=== PATIENT | female | born 1965 | race Caucasian/White ===

== ENCOUNTER 2019-07-29 08:59 | Emergency (ER) | payer BC, SELFPAY ==
[2019-07-29 09:05] VITALS: BP 112/60; PULSE 71; RESP 16; TEMP 36; O2SAT 97
--- NOTE | 2019-07-29 09:21 | ED.GENADUL_ITS ---
Discharge Plan Disposition Patient Disposition: HOME Condition: Stable Discharge Details Chief Complaint: Orthopedic Clinical Impression: Tendonitis of elbow, left Primary Care Provider: Goldie Miner ED Provider: Janet Acosta Home Meds and New Rx's Prescriptions: New diclofenac sodium 50 mg tablet,delayed release (DR/EC) 50 mg PO TID PRN (Reason: pain) Qty: 10 RF: 0 Continued loratadine [Claritin] 10 mg Tablet 10 mg PO DAILY RF: 0 epinephrine [EpiPen 2-Carlos] 0.3 mg/0.3 mL Auto-Injector RF: 0 Discharge Instructions Instructions: Tendinitis (ED) Additional Instructions: Rest, Ice, compression, elevation. Wear sling for comfort. Follow up with Ortho as needed. Ibuprofen or Tylenol as needed for pain and swelling. Referrals: Cuco Llamas MD [ [facility] STAFF PHYSICIAN] - (Call to schedule appointment- you were also put on a call list to follow up.) Goldie Miner MD [Primary Care Provider] - Medical Decision Making EXAM: XR ELBOW LT COMPLETE CLINICAL HISTORY: Left elbow pain TECHNIQUE: COMPARISON: No exams were available for comparison FINDINGS: Three views were obtained. There is no evidence of an elbow joint effusion or hemarthrosis. No bony abnormality is seen. IMPRESSION: 54 year old female Presents with chronic left elbow pain after a fall in March. She has pinpoint tenderness over her lateral epicondyles, no swelling no redness no warmth noted to her joint. She has full range of motion and intact distal pulses. X-rays obtained which are negative for any bony abnormality or joint effusion. Will give a sling and give a referral to orthopedic follow-up. Differential Diagnosis Differential Diagnosis: occult fracture, tendonitis, sprain HPI General Date/Time Provider Initiated Documentation: 07/29/19 09:06 . Limitations to Documentation: no limitations . Information obtained by: patient . History of Present Illness 54 year old F presents to the emergency department with the chief complaint of left elbow pain, described as moderate, with intensity rated at 5. Quality is described as aching, and is localized to the left and upper extremity. Patient reports no radiation. Patient started experiencing this month(s) (3) and it has been intermittent. Immobilization improves symptom(s),, Medication improves symptom(s), and Rest improves symptom(s), Movement worsens symptoms . Patient notes no other symptoms.. Patient did receive the following treatments prior to arrival, none HPI Narrative: . Patient presents with left elbow tenderness after a fall in March. . She has lateral olecranon tenderness to palpation. No swelling or deformity she has pinpoint tenderness to her lateral epicondoyle. Patient states she fell in March landing directly onto her elbow and has had pain since. It is relieved by ibuprofen she has not had any ibuprofen the last 2 days. Related Data Home Medications Medication Instructions Recorded Confirmed diclofenac sodium 50 mg PO TID PRN #10 tab 07/29/19 epinephrine [EpiPen 2-Carlos] 07/29/19 loratadine [Claritin] 10 mg PO DAILY 07/29/19 07/29/19 Previous Rx's Medication Instructions Recorded diclofenac sodium 50 mg PO TID PRN #10 tab 07/29/19 Allergies Allergy/AdvReac Type Severity Reaction Status Date / Time grapefruit juice Allergy Uncoded 07/29/19 09:11 seasonal Allergy Uncoded 07/29/19 09:11 General Stated Complaint: Orthopedic MICAH: 4 Review of Systems All systems reviewed & are unremarkable except as noted in HPI and below PFSH Social History Smoking/Tobacco Use Status: Former Tobacco Use Substance use type: does not use Exam Extrem General: normal to inspection, full ROM and normal capillary refill Right upper extremity: normal to inspection and full ROM Left upper extremity: normal capillary refill, no joint enlargement and elbow/fo rearm Details: tenderness (pinpoint over left lateral epicondoyle) Location: of the lateral epicondyle and distal pulses intact Course Vital Signs Vital signs: Vital Signs Temperature 36 C L 07/29/19 09:05 Pulse 71 07/29/19 09:05 Respiratory Rate 16 07/29/19 09:05 Blood Pressure 112/60 07/29/19 09:05 Pulse Oximetry 97 07/29/19 09:05 Temperature 36 C L 07/29/19 09:05 Temperature Source Skin 07/29/19 09:05 Pulse 71 07/29/19 09:05 Respiratory Rate 16 07/29/19 09:05 Respiratory Effort Non-Labored 07/29/19 09:05 Blood Pressure 112/60 07/29/19 09:05 Blood Pressure Position Supine 07/29/19 09:05 Pulse Oximetry 97 07/29/19 09:05 Oxygen Delivery Method Room Air 07/29/19 09:05 Oxygen Flow Rate 0 07/29/19 09:05 Pain Level 3 07/29/19 09:12
--- NOTE | 2019-07-29 09:31 | DI.RAD_ITS ---
EXAM: XR ELBOW LT COMPLETE CLINICAL HISTORY: Left elbow pain TECHNIQUE: COMPARISON: No exams were available for comparison FINDINGS: Three views were obtained. There is no evidence of an elbow joint effusion or hemarthrosis. No bony abnormality is seen. IMPRESSION:
== END 2019-07-29 10:13 | disposition home or self-care (01) ==
PROVIDERS: Emergency Provider Registered Nurse Emergency; PCP Internal Medicine
DX: M77.8 Other enthesopathies, not elsewhere classified (principal); W19.XXXA Unspecified fall, initial encounter
CPT/HCPCS: 99283; 73080; L3650

== ENCOUNTER 2019-11-21 01:50 | Outpatient (CLI) | payer BC, SELFPAY ==
[2019-11-21 10:44] LABS: Absolute Basophil Count 0.03 k/cumm (0.0-0.2); Absolute Eosinophil Count 0.06 k/cumm (0.0-0.7); Absolute Lymphocyte Count 1.42 k/cumm (1.2-3.4); Absolute Monocyte Count 0.31 k/cumm (0.11-0.7); Absolute Neutrophil Count 1.87 k/cumm (1.2-6.7); Basophils % 0.8; Eosinophils % 1.6; HCT 40.4 % (36.0-46.0); HGB 13.3 g/dL (12.0-15.5); Lymphocytes % 38.5; Mean Corp. HGB Concentration 32.9 g/dL (32.0-36.0); Mean Corpuscular Hemoglobin 28.1 pg (27.0-33.0); Mean Corpuscular Volume 85.4 fL (80-95); Mean Platelet Volume 9.1 fL (8.0-11.0); Monocytes % 8.4; Neutrophils % 50.7; Platelet Count 330 x1000/uL (130-400); RBC 4.73 m/cumm (4.00-5.20); RBC Distribution Width 12.7 % (11.7-14.6); White Blood Cell Count 3.69 k/cumm (4.4-10.8)
[2019-11-21 11:47] LABS: Iron 91 ug/dL (50-170); Total Iron Binding Capacity 306 ug/dL (250-450); Transferrin Sat 30 % (15-50)
[2019-11-21 12:10] LABS: Vitamin D 25 Total 62.2 ng/ml (30-100)
[2019-11-21 12:15] LABS: ALT 24 U/L (14-59); AST 15 U/L (15-37); Albumin 4.2 g/dL (3.4-5.0); Alkaline Phosphatase 68 U/L (46-116); Anion Gap 8.6 mmol/L (3-11); BUN 22 mg/dL (7-18); Bilirubin, Total 0.3 mg/dL (0.2-1.0); CO2 28.4 mmol/L (21.0-32.0); CREATININE 0.74 mg/dL (0.55-1.02); Calcium 9.3 mg/dL (8.5-10.1); Calculated LDL 111 mg/dL (<100); Chloride 103 mmol/L (98-107); Cholesterol 195 mg/dL (<200); Ferritin 109 ng/mL (8-252); Glucose 80 mg/dL (74-106); HDL Cholesterol 69 mg/dL (40-60); Potassium 4.2 mmol/L (3.5-5.1); Sodium 140 mmol/L (136-145); TSH 1.03 uIU/mL (0.36-3.74); Total Protein 7.1 g/dL (6.4-8.2); Triglyceride 76 mg/dL (<150); Vitamin B12 509 pg/mL (193-986)
[2019-11-21 12:16] LABS: Folate > 20.0 ng/mL (8.6-20.0)
[2019-11-21 12:33] LABS: FREE T4 0.87 ng/dL (0.76-1.46)
[2019-11-21 19:30] LABS: T3,Free 4.3 pg/mL (2.8-5.3)
[2019-11-22 09:13] LABS: Thyroglobulin Antibody <15 U/mL (<=60); Thyroperoxidase Antibody <28 U/mL (<=60)
[2019-11-22 13:50] LABS: Homocysteine 9.3 umol/L (5.0-13.9)
[2019-11-23 10:46] LABS: Lipoprotein (a) 30 mg/dL (<=30)
[2019-11-26 18:32] LABS: Histamine Plasma 0.45 ng/mL (0-1.0)
== END 2019-11-21 02:10 ==
PROVIDERS: PCP Internal Medicine; Visit Provider Naturopath
DX: F41.9 Anxiety disorder, unspecified (principal); E61.1 Iron deficiency; R53.83 Other fatigue; E78.5 Hyperlipidemia, unspecified; L29.9 Pruritus, unspecified
CPT/HCPCS: 36415; 80053; 80061; 82306; 83090; 83695; 82607; 82728; 82746; 83036; 83088; 83540; 83550; 84439; 84443; 84481; 85025; 86376; 86800

== ENCOUNTER 2020-02-28 08:39 | Outpatient (CLI) | payer BC, SELFPAY ==
[2020-02-29 14:39] LABS: COVID-19 RT-PCR Result NEGATIVE (Negative)
== END 2020-02-28 08:59 ==
PROVIDERS: PCP Internal Medicine; Visit Provider Orthopaedic Surgery
DX: Z11.59 Encounter for screening for other viral diseases (principal); Z01.818 Encounter for other preprocedural examination
CPT/HCPCS: U0003

== ENCOUNTER 2020-03-02 11:01 | Day surgery (SDC) | payer BC, SELFPAY ==
[2020-03-02 11:11] VITALS: BP 113/67; PULSE 65; RESP 16; TEMP 36.4; O2SAT 97
[2020-03-02] MEDS: Lactated Ringers 1,000 ML 80 ML IV ×2 (11:34→14:28)
[2020-03-02] MEDS: ceFAZolin 1 GM/50 ML BAG IVPB (13:29)
--- NOTE | 2020-03-02 14:20 | PDOC.DSDIS_ITS ---
Discharge Plan Disposition Patient Disposition: HOME Condition: Good Discharge Details Attending Provider: Cuco Llamas Primary Care Provider: Goldie Miner Home Meds and New Rx's Prescriptions: New ibuprofen 600 mg tablet 600 mg PO TID Qty: 30 RF: 1 hydrocodone-acetaminophen 5-325 mg tablet 1 tab PO Q6H PRN (Reason: pain) Qty: 14 RF: 0 No Action atorvastatin 20 mg tablet 20 mg PO DAILY RF: 0 loratadine [Claritin] 10 mg Tablet 10 mg PO DAILY RF: 0 epinephrine [EpiPen 2-Carlos] 0.3 mg/0.3 mL Auto-Injector 0.3 ml IM PRN PRNRF: 0 cyanocobalamin (vitamin B-12) 1,000 mcg Tablet 1,000 mcg PO DAILY RF: 0 vitamin B complex [B-Complex] Tablet 1 tab PO DAILY RF: 0 cholecalciferol (vitamin D3) [Vitamin D3] 125 mcg (5,000 unit) Tablet 125 mcg PO DAILY RF: 0 Probiotic 5 billion cell Capsule, Sprinkle 1 cap PO DAILY RF: 0 Discharge Instructions Additional Instructions: Sling for comfort. May take L arm out of sling and move L elbow as much as your discomfort allows. 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 Apply ice bag to L elbow 4 times/day for 1 hour each time. May remove outer dressing and didier bandage to shower in 72 hours. Leave inner bandage in place to shower. You can get the inner bandage wet. Don't remove inner bandage, it will fall off by itself or I will remove it at your follow up appointment. Follow up with in 2 weeks. Take ibuprofen to decrease swelling and inflammation. Take hydrocodone for breakthru pain, if needed. Referrals: Cuco Llamas MD [ [facility] STAFF PHYSICIAN] - (f/u in 2 weeks) Equipment/Supplies: Sling Activity:: Activity as Tolerated Remove Dressings/Wound Care:: Do Not Remove Shower/Bathe:: 72 hours Diet:: As Tolerated Discharge Orders Discharge Orders: Discharge Order (Routine); Ordered 03/02/20 Ordered By: Cuco Llamas DS: Diagnosis Discharge Diagnosis (1) Left lateral epicondylitis: Status: Acute
[2020-03-02 14:47] VITALS: BP 111/65; PULSE 87; RESP 19; TEMP 36.7; O2SAT 95
[2020-03-02 14:52] VITALS: BP 127/75; PULSE 85; RESP 20; TEMP 36.7; O2SAT 94
[2020-03-02 14:57] VITALS: BP 136/63; PULSE 76; RESP 14; TEMP 36.7; O2SAT 95
[2020-03-02 15:10] VITALS: BP 113/62; PULSE 84; RESP 15; TEMP 36.6; O2SAT 95
[2020-03-02] MEDS: oxyCODONE-CR 10 MG TABCR PO (15:42)
[2020-03-02 16:00] VITALS: BP 114/70; PULSE 77; RESP 16; TEMP 36.6; O2SAT 96
--- NOTE | 2020-03-03 16:10 | W.PM.OP ---
Date of service: 03/02/20 Time of Service: 14:10 Operative Note Operative Note DATE OF PROCEDURE: 03/02/20 PRE-OP DIAGNOSIS: Left lateral epicondylitis POST-OP DIAGNOSIS: same PROCEDURE: Fasciotomy elbow left for lateral epicondylitis, partial ostectomy lateral epicondyle. 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 She has exhausted conservative treatment without relief of symptoms. Surgery was therefore recommended to relieve her pain. Risk and complication of procedure explained patient detail preop Procedure Description: Patient was taken the operating room on 03/02/2020 where she was placed supine on the operating table and a general anesthetic was administered. Once good anesthesia was obtained proximal tourniquet was applied to the left upper arm. The left upper extremity was prepped from fingers to turn again and draped free in usual sterile fashion. Approximately 5 cm oblique incision was made centered over the lateral condyle. Incision was made under tourniquet control. Incision was carried down to the fascia. Fascia was incised circumferentially around the lateral condyle and the common extensor origin was sharply reflected from the lateral condyle. Care was taken to preserve the lateral collateral ligament. Degenerated tendon on the undersurface of the extensor carpi radialis brevis was excised. Partial ostectomy was performed the lateral condyle using Sandra osteotomes and a mallet. A wafer of bone approximately 1 to 2 mm was excised. This point the wound was irrigated with the saline solution. The wound margins were infiltrated with 25% Marcaine with epinephrine solution. The common extensor origin was reattached to the lateral epicondyle by suturing the tendon to surrounding fascia. Anterior and superior fasciotomy around the extensor carpi radialis brevis and longus was made during exposure. Th the fasciotomies were approximated interrupted [id number] sutures of #1 backslash material. Skin and subcu were approximated with running subcuticular suture of 4-0 Monocryl supplemented with Steri-Strips. Sterile dressings were applied followed by light compressive dressing to the elbow. Sling was applied to the left upper extremity. Tourniquet was released and there was no breakthrough bleeding to the dressings. Patient's anesthesia was reversed complications she was discharged to recovery room in good condition. Patient was later discharged home from day surgery unit when fully recovered from her general anesthesia. She is given instructions to take her left arm out of the sling and move the elbow as often and is much as discomfort allows. She is to apply ice pack to the lateral elbow incision 4 times a day for an hour each time. She may discontinue the sling as soon as discomfort allows. She may remove the dressing shower and get her incision wet after 72 hours. She is given a prescription for ibuprofen 60 mg p.o. 3 times daily for swelling and inflammation. She is given a prescription for breakthrough pain of hydrocodone with APAP 11/09/2024 1 tab every 6 hours if needed for breakthrough pain. 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 She will follow-up with Dr. Llamas in 2 weeks.
== END 2020-03-02 16:35 | disposition home or self-care (01) ==
PROVIDERS: PCP Internal Medicine; Visit Provider Orthopaedic Surgery
PROC: (CPT 24357; principal; 2020-03-02 13:15)
DX: M77.12 Lateral epicondylitis, left elbow (principal)
CPT/HCPCS: 24359; J0131; J0690; J1100; J1885; J2001; J2405; J3010; L3650

== ENCOUNTER 2020-04-24 14:07 | Outpatient (REF) | payer BC, SELFPAY ==
[2020-04-24 21:33] LABS: ALT 16 U/L (14-59); AST 12 U/L (15-37); Calculated LDL 182 mg/dL (<100); Cholesterol 259 mg/dL (<200); Ferritin 84 ng/mL (8-252); HDL Cholesterol 49 mg/dL (40-60); Triglyceride 142 mg/dL (<150)
[2020-04-27 07:28] LABS: Vitamin D 25 Total 65.3 ng/ml (30-100)
== END 2020-04-24 14:27 ==
LOC: NCHCN 14:07
PROVIDERS: PCP Nurse Practitioner Family; Visit Provider Nurse Practitioner Family
DX: E78.5 Hyperlipidemia, unspecified (principal); E61.1 Iron deficiency; E55.9 Vitamin D deficiency, unspecified
CPT/HCPCS: 80061; 82306; 82728; 84450; 84460

== ENCOUNTER 2020-05-01 09:20 | Emergency (ER) | payer BC, SELFPAY ==
[2020-05-01 09:25] VITALS: BP 100/70; PULSE 64; RESP 17; TEMP 36.2; O2SAT 100
--- NOTE | 2020-05-01 09:59 | ED.GENADUL_ITS ---
Discharge Plan Disposition Patient Disposition: HOME Condition: Stable Discharge Details Clinical Impression: Acute otitis media of left ear with perforation Primary Care Provider: Heather Mcduffie ED Provider: Janet Acosta Home Meds and New Rx's Prescriptions: New ofloxacin 0.3 % drops 10 drp otic (ear) BID 7 Days Qty: 10 RF: 0 amoxicillin-pot clavulanate [Augmentin] 875-125 mg tablet 1 tab PO BID 7 Days Qty: 14 RF: 0 Continued loratadine [Claritin] 10 mg Tablet 10 mg PO DAILY RF: 0 epinephrine [EpiPen 2-Carlos] 0.3 mg/0.3 mL Auto-Injector 0.3 ml IM PRN PRNRF: 0 cyanocobalamin (vitamin B-12) 1,000 mcg Tablet 1,000 mcg PO DAILY RF: 0 vitamin B complex [B-Complex] Tablet 1 tab PO DAILY RF: 0 cholecalciferol (vitamin D3) [Vitamin D3] 125 mcg (5,000 unit) Tablet 125 mcg PO DAILY RF: 0 Probiotic 5 billion cell Capsule, Sprinkle 1 cap PO DAILY RF: 0 Discharge Instructions Instructions: Ruptured Eardrum (ED), Ear Infection (ED) Additional Instructions: Take antibiotics as directed. Eat yogurt or take a probiotic while taking antibiotics. No swimming, do not put anything into your ear other than the antibiotic drops. Follow up with primary care provider in 3-5 days. Return to ED sooner if any worsening or concerns. Increase oral fluids. Please take Tylenol or Ibuprofen with food every 4-6 hours as needed for pain and swelling. Call ear nose and throat doctors as listed below for follow-up related to the perforation. Referrals: Richard Poole DO [OSTEOPATHIC DOCTOR] - Soren Bell MD [ [facility] STAFF PHYSICIAN] - Heather Mcduffie [Primary Care Provider] - Discharge Data Discharge Date/Time-TO BE ENTERED AT DEPARTURE: 05/01/20 11:17 Medical Decision Making 54-year-old female presents to the ED with chief complaint of runny nose, ear drainage, head fullness and dry cough which began this morning. She has had the symptoms for the last week. She recently traveled to [place] 3 weeks ago. She denies any barotrauma or head injuries. Upon examination she does have a left tympanic membrane perforation noted with surrounding ecchymosis. Right tympanic membrane is nonerythemic but is bulging does appear to have an effusion behind it. She has no mastoid erythema or tenderness. No sinus tenderness with palpation. Lungs are clear to auscultation bilaterally. She is alert and oriented x3. On exam patient has a perforated left tympanic membrane with surrounding ecchymosis and dried blood noted in the external ear canal. Right tympanic membrane is bulging and nonerythemic but appears to have fluid behind the ear. She has no mastoid tenderness erythema or swelling. Lungs are clear to auscultation bilaterally. Posterior pharynx is nonerythemic no exudate. 1025: Call received from [facility] regarding patient. They were not aware of her recent travel and they state that she was in their office approximately 1 week ago and they are requesting Covid testing for her. Jackeline testing ordered at this time and patient aware. Augmentin prescribed and ofloxacin drops x7 days for perforated eardrum related to otitis media. Did give patient phone numbers for ear nose and throat doctors for follow-up. Patient was hemodynamically stable throughout stay. This text was generated using [employer] dictation system, please disregard any oddities of phrase or misspellings. At this time Covid swab is pending. Instructed on quarantine. HPI General Mode of arrival: ambulatory . Date/Time Provider Initiated Documentation: 05/01/20 09:20 . Limitations to Documentation: no limitations . Information obtained by: patient . HPI Narrative: 54-year-old female presents to the ED with chief complaint of runny nose, ear drainage, head fullness and dry cough which began this morning. She has had the symptoms for the last week. She recently traveled to [place] 3 weeks ago. She denies any barotrauma or head injuries. Upon examination she does have a left tympanic membrane perforation noted with surrounding ecchymosis. Right tympanic membrane is nonerythemic but is bulging does appear to have an effusion behind it. She has no mastoid erythema or tenderness. No sinus tenderness with palpation. Lungs are clear to auscultation bilaterally. She is alert and oriented x3. Related Data Home Medications Medication Instructions Recorded Confirmed epinephrine [EpiPen 2-Carlos] 0.3 ml IM PRN PRN 07/29/19 04/15/20 loratadine [Claritin] 10 mg PO DAILY 07/29/19 04/15/20 Probiotic 1 cap PO DAILY 02/26/20 04/15/20 cholecalciferol (vitamin D3) 125 mcg PO DAILY 02/26/20 04/15/20 [Vitamin D3] cyanocobalamin (vitamin B-12) 1,000 mcg PO DAILY 02/26/20 04/15/20 vitamin B complex [B-Complex] 1 tab PO DAILY 02/26/20 04/15/20 amoxicillin-pot clavulanate 1 tab PO BID 7 Days #14 tab 05/01/20 [Augmentin] ofloxacin 10 drp OTIC (EAR) BID 7 Days #10 ml 05/01/20 Previous Rx's Medication Instructions Recorded amoxicillin-pot clavulanate 1 tab PO BID 7 Days #14 tab 05/01/20 [Augmentin] ofloxacin 10 drp OTIC (EAR) BID 7 Days #10 ml 05/01/20 Allergies Allergy/AdvReac Type Severity Reaction Status Date / Time gluten Allergy Unknown Verified 04/15/20 09:53 lactose Allergy Unknown Verified 04/15/20 09:53 grapefruit juice Allergy Severe Anaphylaxsi Uncoded 04/15/20 09:53 s seasonal Allergy Uncoded 04/15/20 09:53 General Stated Complaint: RespSymp MICAH: 4 Review of Systems Narrative: Constitutional: Negative for weight loss, alert and oriented, well groomed, normal body habitus, appears comfortable. HEENT: Denies trauma, headaches, blurry vision, nasal discharge, sore throat, trouble swallowing. Positive bilateral ear pain and ear drainage. Chest: Denies chest pain, palpitations, irregular rhythm, hypertension. Respiratory: Denies Shortness of breath, positive dry cough, denies hemoptysis. GI: Denies abdominal pain, nausea, vomiting, diarrhea, constipation. : Denies dysuria, hematuria, flank pain, rectal bleeding. Neuro: Denies dizziness, blurry vision, weakness, syncope, headache or facial numbness. Hematologic: Denies easy bruising, intolerance to heat or cold, hair loss. [facility] Medical History Difficult airway for intubation Significant masseter spasm following induction of anesthesia, small mouth opening Gluten intolerance Hyperlipidemia Lactose intolerance Surgical History History of tonsillectomy and adenoidectomy Hx of cholecystectomy Hx of shoulder surgery 2017 Arthroscopy S/P left knee arthroscopy 2006 & 2011 Social History Smoking/Tobacco Use Status: Former Tobacco Use Quit Date: 07/10/17 Alcohol Intake: current Alcohol Intake frequency: holidays/special occasions only Drug use: Never Substance use type: does not use Current gender identity: female Do you feel safe at home: Yes Do you feel safe in your relationship?: Yes Exam Narrative Exam Narrative: Constitutional: Alert and oriented x3. Appears stated age. Normal body habitus. Head: Normocephalic, no trauma. Eyes: Pupils PERRLA, Red reflex noted, EOM's intact. Eyelids symmetrical without lesions, discharge, or swelling. ENT: Left tympanic membrane noted is a central perforation with surrounding ecchymosis and dried blood noted to the ear canal. Right tympanic membrane is nonerythemic with bulging and fluid behind tympanic membrane. Ear canal is clear., External ear normal to inspection, no mastoid TTP, swelling, or erythema, Nasal turbinates WNL, no nasal discharge. Normal dentition, Posterior pharynx WNL, no exudate. Chest: RRR, Normal S1, S2, distal pulses intact. Resp: Lungs clear to auscultation bilaterally, no wheezes, rales, or rhonchi. Musculoskeletal: Normal gait, 5/5 strength to all four extremities. Skin: No suspicious rashes or lesions. Capillary refill less than 2 sec. Neurologic: Cranial nerves II-XII intact. Alert and oriented x 3. DTR's intact. Hematologic/Lymphatic: No ecchymosis, no lymphadenopathy. Course Vital Signs Vital signs: Vital Signs Temperature 36.2 C L 05/01/20 09:25 Pulse 64 05/01/20 09:25 Respiratory Rate 17 05/01/20 09:25 Blood Pressure 100/70 05/01/20 09:25 Pulse Oximetry 100 05/01/20 09:25 Temperature 36.2 C L 05/01/20 09:25 Temperature Source Tympanic 05/01/20 09:25 Pulse 64 05/01/20 09:25 Respiratory Rate 17 05/01/20 09:25 Respiratory Effort 05/01/20 09:33 Blood Pressure 100/70 05/01/20 09:25 Blood Pressure Position Supine 05/01/20 09:25 Pulse Oximetry 100 05/01/20 09:25 Oxygen Delivery Method Room Air 05/01/20 09:25 Oxygen Flow Rate 0 05/01/20 09:25
[2020-05-01] MEDS: Amoxicillin 875/Clav. 125 TAB PO (10:44)
[2020-05-03 23:34] LABS: Patient Race White; SARS-CoV-2 RNA Undetected (Undetected); SARS-CoV-2 Specimen Source Nasopharynx
== END 2020-05-01 11:17 | disposition home or self-care (01) ==
PROVIDERS: Emergency Provider Registered Nurse Emergency; PCP Nurse Practitioner Family
DX: H66.012 Acute suppurative otitis media with spontaneous rupture of ear drum, left ear (principal); R05 Cough; R09.89 Other specified symptoms and signs involving the circulatory and respiratory systems; Z03.818 Encounter for observation for suspected exposure to other biological agents ruled out
CPT/HCPCS: 99283; U0003

== ENCOUNTER 2020-05-14 00:34 | Outpatient (CLI) | payer BC, SELFPAY ==
--- NOTE | 2020-05-14 | DI.US_ITS ---
EXAM: US PELVIS TRANSVAGINAL CLINICAL HISTORY: H/O OVARIAN CYST, F/U, Z87.42. TECHNIQUE: Transabdominal and transvaginal pelvic ultrasound was performed using standard protocol. COMPARISON: No exams were available for comparison FINDINGS: KIDNEYS: Kidneys are symmetric in size. No evidence of renal calculi. No evidence of hydronephrosis. No renal mass or cyst identified. UTERUS: Position: Anteverted. Size: 6.5 long by 3.5 AP by 4.6 transverse cm Endometrium: 0.2 cm. Normal for patient's menstrual status. The intrauterine device is located in goo d position within the endometrium. Myometrium: Unremarkable. Cervix: Unremarkable. OVARIES: Right: 2.9 x 1.6 x 1.5 cm Cyst or mass: None. Left: 3.2 x 1.6 x 1.7 cm Cyst or mass: None. DOPPLER: Color: Symmetric and uniform flow to both ovaries. No hyperemia. CUL-DE-SAC: Free fluid: None. Other: None. IMPRESSION: 1. Normal sonographic appearance of the kidneys. 2. Normal-appearing uterus with endometrial stripe within normal limits. 3. IUD in good position. 4. Unremarkable bilateral ovaries. DATA REPOSITORY:
== END 2020-05-14 00:54 ==
PROVIDERS: PCP Nurse Practitioner Family; Visit Provider Nurse Practitioner Family
DX: Z87.42 Personal history of other diseases of the female genital tract (principal); Z97.5 Presence of (intrauterine) contraceptive device
CPT/HCPCS: 76830; 76856

== ENCOUNTER 2020-06-18 17:38 | Outpatient (REF) | payer BC, SELFPAY ==
--- NOTE | 2020-06-18 16:30 | PAPFT_PTH ---
PATIENT: Virginia Marie [facility] U[facility][id number] AGE/SX: 55/F ROOM: RE06/18/[address]: Heather Mcduffie : 1965 BED: DIS: 06/18/2020 SPEC #: [id number] RECD: 06/19/20 12:48 STATUS: CHAR REQ #: [id number] [place]: 06/18/20 16:[address]: Heather Mcduffie DEPT: [facility] Cytology RECD BY: Rose Presley Tissues: 1 - CX/ENDOCX FOR PAP SMEARS Procedures: PAP THIN PREP/UVM Screening HPV DNA PROBE Comments: [id number] (CHLAMYDIA/GC)
[2020-06-22 14:15] LABS: Chlamydia Result Negative (Negative); GC Result Negative (Negative)
== END 2020-06-18 17:58 ==
LOC: NCHCN 17:38
PROVIDERS: PCP Nurse Practitioner Family; Visit Provider Nurse Practitioner Family
DX: Z00.00 Encounter for general adult medical examination without abnormal findings (principal); Z11.3 Encounter for screening for infections with a predominantly sexual mode of transmission; Z12.4 Encounter for screening for malignant neoplasm of cervix; Z01.419 Encounter for gynecological examination (general) (routine) without abnormal findings; Z11.51 Encounter for screening for human papillomavirus (HPV)
CPT/HCPCS: 87491; 87591; 88142; 87624

== ENCOUNTER 2020-07-26 11:16 | Emergency (ER) | payer BC, SELFPAY ==
[2020-07-26 11:30] VITALS: BP 124/68; PULSE 76; RESP 18; TEMP 36.7; O2SAT 97
--- NOTE | 2020-07-26 12:07 | ED.GENADUL_ITS ---
Discharge Plan Disposition Patient Disposition: HOME Condition: Stable Discharge Details Clinical Impression: Headache Primary Care Provider: Heather Mcduffie ED Provider: Mark Scott Home Meds and New Rx's Prescriptions: Continued loratadine [Claritin] 10 mg Tablet 10 mg PO DAILY RF: 0 epinephrine [EpiPen 2-Carlos] 0.3 mg/0.3 mL Auto-Injector 0.3 ml IM PRN PRNRF: 0 cyanocobalamin (vitamin B-12) 1,000 mcg Tablet 1,000 mcg PO DAILY RF: 0 vitamin B complex [B-Complex] Tablet 1 tab PO DAILY RF: 0 cholecalciferol (vitamin D3) [Vitamin D3] 125 mcg (5,000 unit) Tablet 125 mcg PO DAILY RF: 0 Probiotic 5 billion cell Capsule, Sprinkle 1 cap PO DAILY RF: 0 Discharge Instructions Instructions: General Headache (ED) Additional Instructions: Please take ibuprofen over the counter. Take 600mg by mouth every 6 hours as needed for pain. Your next dose should be after 10 PM tonight Please take acetaminophen (tylenol) - 650mg every 6 hours by mouth as needed for pain. Please contact your primary care physician to arrange follow-up. Call tomorrow. If headache were to return you will need additional diagnostic testing. Return to the ER immediately for any worsening or new concerning symptoms. Discharge Data Discharge Date/Time-TO BE ENTERED AT DEPARTURE: 07/26/20 13:31 Medical Decision Making 12:13 -- 55-year-old female here with intermittent headache over the past 2 weeks that started after receiving COVID-19 vaccine. Patient has mild to moderate headache at this time. She is neurologically intact. No signs of meningitis or encephalitis. Headache presentation is not consistent with subarachnoid hemorrhage. Plan to treat with Compazine, Benadryl and Toradol as well as IV fluid and I will reassess. --Labs reviewed and nondiagnostic. 13:25 --patient reassessed and headache completely resolved. Disposition decision was made weighing the risks and benefits of hospitalization versus outpatient treatment, the risk for further decompensation, and the patient's wishes. The patient was stable and requested discharge. Prior to discharge, my usual and customary return precautions were reviewed with her- this included follow-up instructions and reason to return to the emergency department if condition worsens, does not improve as expected, or other new concerns arise. HPI General Mode of arrival: ambulatory . Date/Time Provider Initiated Documentation: 07/26/20 11:25 . Limitations to Documentation: no limitations . Information obtained by: patient . HPI Narrative: 55-year-old female presents with chief complaint of headache. Patient notes headache started on 07/13/2020 a few hours after receiving COVID-19 vaccine. Patient notes she experienced moderate headache initially. Headache has been intermittent since onset and severe at times. Headache is currently mild to moderate rated 4/10. Headache is frontal temporal bilaterally. Described as feels like a migraine. she has no associated visual changes. No numbness or weakness. No neck pain or stiffness. No fever. Patient states the day after vaccination she did have some general achiness but that has resolved. Patient notes she has had headaches in the past related to ingestion of gluten. She stopped eating gluten and headaches have resolved. Related Data Home Medications Medication Instructions Recorded Confirmed epinephrine [EpiPen 2-Carlos] 0.3 ml IM PRN PRN 07/29/19 07/26/20 loratadine [Claritin] 10 mg PO DAILY 07/29/19 07/26/20 Probiotic 1 cap PO DAILY 02/26/20 07/26/20 cholecalciferol (vitamin D3) 125 mcg PO DAILY 02/26/20 07/26/20 [Vitamin D3] cyanocobalamin (vitamin B-12) 1,000 mcg PO DAILY 02/26/20 07/26/20 vitamin B complex [B-Complex] 1 tab PO DAILY 02/26/20 07/26/20 Allergies Allergy/AdvReac Type Severity Reaction Status Date / Time gluten Allergy Unknown Verified 08/10/20 09:51 lactose Allergy Unknown Verified 08/10/20 09:51 grapefruit juice Allergy Severe Anaphylaxsi Uncoded 08/10/20 09:51 s seasonal Allergy Uncoded 08/10/20 09:51 General Stated Complaint: Headache MICAH: 2 Review of Systems All systems reviewed & are unremarkable except as noted in HPI and below Constitutional Constitutional: Denies body ache(s), Denies fever(s), Reports headache(s) and Denies weakness Eyes Eyes: Denies blurry vision and Denies loss of vision ENT Ears, Nose, Mouth, and Throat: Reports headache(s) Cardiovascular Cardiovascular: Denies chest pain and Denies dyspnea Respiratory Respiratory: Denies dyspnea Musculoskeletal Musculoskeletal: Denies numbness Neurologic Neurologic: Reports as per HPI, Reports headache(s), Denies loss of vision, Denies numbness and Denies weakness PFSH Medical History Difficult airway for intubation Significant masseter spasm following induction of anesthesia, small mouth opening Gluten intolerance Hyperlipidemia Lactose intolerance Surgical History History of tonsillectomy and adenoidectomy Hx of cholecystectomy Hx of shoulder surgery 2017 Arthroscopy S/P left knee arthroscopy 2006 & 2011 Family History Father Hyperlipidemia Hypertension Mother Hypertension Thyroid disorder Lupus Rheumatoid arthritis Scleroderma Pernicious anemia Sjogren's disease Social History Smoking/Tobacco Use Status: Former Tobacco Use Quit Date: 07/10/17 Smoking risk assessment performed?: Yes Alcohol Intake: current Alcohol Intake frequency: holidays/special occasions o nly Drug use: Never Substance use type: does not use Current gender identity: female Do you feel safe at home: Yes Do you feel safe in your relationship?: Yes Exam Const General: cooperative and no acute distress HENMT Head: normocephalic and atraumatic Mouth: moist mucous membranes Eyes Alignment and Position: alignment normal Pupils: PERRL EOM: EOM intact bilaterally Direct ophthalmoscopy: no papilledema Neck Neck: full ROM Resp Auscultation: clear to auscultation bilaterally, no rales, no rhonchi and no wheezes Cardio Rate: regular rate and not tachycardic Rhythm: regular rhythm GI Palpation: soft, not firm, no guarding, no masses, not rigid and nontender Skin General skin exam: no rashes or lesions noted Neuro General: patient alert, patient awake, patient oriented x3 and tone normal Cranial Nerves: CN's II-XI intact bilaterally Cognition: normal cognition Speech: speech normal Motor: strength 5/5 throughout Sensory Exam: no sensory deficits noted Extrem General: no edema Psych Appearance: grossly normal Mental Status: mental status grossly normal Speech and Movement: speech and movement normal Course Vital Signs Vital signs: Vital Signs Temperature 36.7 C 07/26/20 11:30 Pulse 76 07/26/20 11:30 Respiratory Rate 18 07/26/20 11:30 Blood Pressure 124/68 07/26/20 11:30 Pulse Oximetry 97 07/26/20 11:30 Temperature 36.7 C 07/26/20 11:30 Temperature Source Skin 07/26/20 11:30 Pulse 76 07/26/20 11:30 Respiratory Rate 18 07/26/20 11:30 Respiratory Effort Non-Labored 07/26/20 11:33 Blood Pressure 124/68 07/26/20 11:30 Blood Pressure Position Sitting 07/26/20 11:30 Pulse Oximetry 97 07/26/20 11:30 Oxygen Delivery Method Room Air 07/26/20 11:30 Oxygen Flow Rate 0 07/26/20 11:30 Pain Level 4 07/26/20 11:30
[2020-07-26] MEDS: Normal Saline 1,000 ML 1000 ML IV (12:27)
[2020-07-26] MEDS: Ketorolac 30 MG/ML VIAL IVP (12:27)
[2020-07-26] MEDS: diphenhydrAMINE 50 MG/ML VIAL 25 MG IVP (12:27)
[2020-07-26] MEDS: Prochlorperazine 10 MG/2 ML VIAL IVP (12:28)
[2020-07-26 12:32] LABS: Abs Immature Grans 0.01 10^3/uL (0.0-0.06); Absolute Basophil Count 0.05 10^3/uL (0.0-0.2); Absolute Eosinophil Count 0.11 10^3/uL (0.0-0.7); Absolute Monocyte Count 0.31 10^3/uL (0.1-0.8); Absolute Neutrophil Count 1.83 10^3/uL (1.2-6.7); Basophils % 1.2; Eosinophils % 2.6; HCT 38.2 % (36.0-46.0); HGB 12.7 g/dL (11.2-15.7); Immature Grans % 0.2; Lymphocytes % 45.1; MCH 28.4 pg (27.0-33.0); MCHC 33.2 % (32.0-36.0); MCV 85.5 fL (80-95); Monocytes % 7.4; Neutrophils % 43.5; Nucleated RBC 0 %; Platelet Count 291 10^3/uL (130-400); RBC 4.47 10^6/uL (3.93-5.22); RDW 12.1 % (11.7-14.6); RDW-SD 37.8 fL; WBC 4.21 10^3/uL (4.4-10.8)
[2020-07-26 12:43] LABS: ALT 20 U/L (14-59); AST 14 U/L (15-37); Albumin 3.8 g/dL (3.4-5.0); Alkaline Phosphatase 72 U/L (46-116); Anion Gap 6.9 mmol/L (3-11); BUN 14 mg/dL (7-18); Bilirubin, Total 0.3 mg/dL (0.2-1.0); CO2 28.1 mmol/L (21.0-32.0); Chloride 106 mmol/L (98-107); Glucose 88 mg/dL (74-106); Potassium 4.1 mmol/L (3.5-5.1); Sodium 141 mmol/L (136-145); Total Protein 6.8 g/dL (6.4-8.2)
== END 2020-07-26 13:31 | disposition home or self-care (01) ==
PROVIDERS: Emergency Provider Student in an Organized Health Care Education/Training Program; PCP Nurse Practitioner Family
DX: T50.Z95A Adverse effect of other vaccines and biological substances, initial encounter (principal); R51.9 Headache, unspecified
CPT/HCPCS: 36415; 80053; 96361; 96374; 96375; 99284; 85025; J0780; J1200; J1885

== ENCOUNTER 2021-07-07 18:37 | Outpatient (REF) | payer BC, SELFPAY ==
[2021-07-08 16:14] LABS: COVID-19 RT-PCR UVMMC Result Positive (Negative)
== END 2021-07-07 18:38 | disposition home or self-care (01) ==
LOC: LBN 18:37
PROVIDERS: PCP Nurse Practitioner Family; Visit Provider Physician Assistant Medical
DX: Z20.822 Contact with and (suspected) exposure to COVID-19 (principal); J06.9 Acute upper respiratory infection, unspecified
CPT/HCPCS: U0003

== ENCOUNTER 2021-07-28 22:34 | Outpatient (REF) | payer BC, SELFPAY ==
[2021-07-28 22:10] LABS: HCT 39.5 % (36.0-46.0); HGB 12.4 g/dL (11.2-15.7); MCH 27.5 pg (27.0-33.0); MCHC 31.4 % (32.0-36.0); MCV 87.6 fL (80-95); MPV 10.1 fL (8.0-11.0); Platelet Count 339 10^3/uL (130-400); RBC 4.51 10^6/uL (3.93-5.22); RDW 12.7 % (11.7-14.6); RDW-SD 40.5 fL; WBC 5.04 10^3/uL (4.4-10.8)
[2021-07-28 22:29] LABS: Iron 60 ug/dL (50-170); Total Iron Binding Capacity 317 ug/dL (250-450); Transferrin Sat 19 % (15-50)
[2021-07-28 22:38] LABS: ALT 19 U/L (14-59); AST 13 U/L (15-37); BUN 15 mg/dL (7-18); CREATININE 0.8 mg/dL (0.55-1.02); Calcium 9.4 mg/dL (8.5-10.1); Calculated LDL 167 mg/dL (<100); Chloride 104 mmol/L (98-107); Cholesterol 257 mg/dL (<200); Glucose 93 mg/dL (74-106); HDL Cholesterol 54 mg/dL (40-60); Potassium 4.8 mmol/L (3.5-5.1); Sodium 140 mmol/L (136-145); Triglyceride 183 mg/dL (<150)
[2021-07-29 05:48] LABS: Vitamin D 25 Total 60.7 ng/mL (30-100)
[2021-07-29 11:02] LABS: TSH (W/Ref FT4) 1.12 uIU/mL (0.36-3.74)
[2021-07-30 14:29] LABS: ANA Interpretation Positive (Negative); ANA Titer Pattern 1:160 Homogeneous
[2021-09-14 16:21] LABS: dsDNA Ab, IgG <12.3 IU/mL (<30)
== END 2021-07-28 22:35 | disposition home or self-care (01) ==
LOC: NCHCN 22:34
PROVIDERS: PCP Nurse Practitioner Family; Visit Provider Nurse Practitioner Family
DX: E78.5 Hyperlipidemia, unspecified (principal); R53.83 Other fatigue; E61.1 Iron deficiency; E55.9 Vitamin D deficiency, unspecified
CPT/HCPCS: 80048; 80061; 82306; 85027; 83540; 83550; 84443; 84450; 84460; 86038; 86225

== ENCOUNTER 2021-07-29 01:19 | Outpatient (CLI) | payer BC, SELFPAY ==
--- NOTE | 2021-07-29 07:30 | DI.US_ITS ---
Exam(s) US PELVIS TRANSVAGINAL EXAM: US PELVIS TRANSVAGINAL CLINICAL HISTORY: pelvic pain and bloating,r10.2,r14.0 TECHNIQUE: Ultrasound of the pelvis was performed both transabdominal and transvaginal. COMPARISON: US US PELVIS TRANSVAGINAL from 05/14/2020 FINDINGS: UTERUS: Previously present IUD is no longer seen. Measures 6.4 cm length x 2.9 cm AP x 5.0 cm wide. There are no uterine fibroids. Endometrial thickness measures 1.8 mm. There is no fluid in the endometrial canal. CERVIX: There are multiple small nabothian cysts. RIGHT OVARY: Measures 1.3 x 0.9 x 1.5 cm No significant cysts nor masses evident in the right ovary. LEFT OVARY: Measures 1.4 x 1.8 x 1.9 cm No significant cysts nor masses evident in the left ovary. CUL-DE-SAC: No free fluid evident. IMPRESSION: 1. Normal appearing uterus and age-appropriate endometrium. 2. Previously present IUD has been removed. 3. No significant adnexal findings. No free fluid. DATA REPOSITORY:
--- NOTE | 2021-07-29 07:30 | DI.MAMMO_ITS ---
Exam(s) MAMMO SCREENING EXAM: MAMMO SCREENING CLINICAL HISTORY: screening,z12.39 TECHNIQUE: Bilateral full field digital CC and MLO mammographic images were obtained with 3D tomosyn thesis and utilizing computer aided detection (CAD). COMPARISON: None. FINDINGS: Masses/Architectural Distortion: None seen. Microcalcifications: No suspicious pleomorphic-type are seen. Skin Thickening/Nipple Retraction: None. IMPRESSION: 1. No significant interval change with no specific features of malignancy noted. 2. Unless there is more urgent need, screening mammography is recommended, as per [employer] guidelines. BI-RADS Category 1 - Negative Breast Density - Category B - Scattered areas of fibroglandular density Breast density category C or D implies that the patient has dense breast tissue. Dense breast tissue is very common and is not abnormal but dense breast tissue can make it harder to find cancer on a ma mmogram. Also, dense breast tissue may increase their breast cancer risk. This information about the result of the mammogram report was provided to the patient to raise their awareness. Use this report when you speak with the patient about their risks for breast cancer, which includes their family hist ory. At that time, you may recommend for more screening tests (Ultrasound or MRI) as they might be us eful based on their risk. A negative radiographic report should not delay biopsy if a dominant or clinically suspicious mass is present. Up to ten percent of cancers are not identified on mammography. A negative report may reinforce clinical impression. Adenosis and dense breasts may obscure an underlying neoplasm. False positive reports average 6 to 10%. Patient will receive a letter notifying them of these results.
== END 2021-07-29 01:39 ==
PROVIDERS: PCP Nurse Practitioner Family; Visit Provider Obstetrics & Gynecology Gynecology
DX: R10.2 Pelvic and perineal pain (principal); R14.0 Abdominal distension (gaseous); Z12.31 Encounter for screening mammogram for malignant neoplasm of breast
CPT/HCPCS: 77063; 77067; 76830; 76856

== ENCOUNTER 2021-09-16 11:54 | Outpatient (REF) | payer BC, SELFPAY ==
--- NOTE | 2021-09-16 09:45 | SKI_PTH ---
PATIENT: Virginia Marie LOC: [facility]#:[id number] AGE/SX: 56/F ROOM: RE09/16/[address]: Maria Del Rosario Kapadia : 1965 BED: DIS: 09/16/2021 SPEC #: [id number] RECD: 09/16/21 13:23 STATUS: CHAR REAllison #: [id number] CLAYTON: 09/16/21 09:[address]: Maria Del Rosario Kapadia DEPT: Surgical Specimen RECD BY: Rose Presley ENTERED: 09/16/21 13:24 SP TYPE: GIANLUCA ELLIS DR: Heather Mcduffie Tissues: 1 - SKIN BIOPSY(SHAVE/PUNCH) 2 - SKIN BIOPSY(SHAVE/PUNCH) Procedures: SKIN LEVEL 4 Comments: [id number]
[2021-09-16 14:05] LABS: ESR 5 mm/hr (0-30)
[2021-09-16 14:24] LABS: ALT 21 U/L (14-59); AST 16 U/L (15-37); Albumin 4.2 g/dL (3.4-5.0); Alkaline Phosphatase 70 U/L (46-116); Anion Gap 8.9 mmol/L (3-11); BUN 23 mg/dL (7-18); Bilirubin, Total 0.2 mg/dL (0.2-1.0); CO2 26.1 mmol/L (21.0-32.0); CREATININE 0.8 mg/dL (0.55-1.02); Calcium 9.4 mg/dL (8.5-10.1); Chloride 106 mmol/L (98-107); Glucose 102 mg/dL (74-106); Potassium 4.7 mmol/L (3.5-5.1); Sodium 141 mmol/L (136-145); TSH 1.26 uIU/mL (0.36-3.74); Total Protein 7.2 g/dL (6.4-8.2)
[2021-09-16 14:28] LABS: C-Reactive Protein < 0.05 mg/dL (0.0-0.3)
[2021-09-16 21:27] LABS: Rheumatoid Factor <8.6 IU/mL (<12.0)
[2021-09-16 21:45] LABS: T3,Free 3.5 pg/mL (2.8-5.3)
[2021-09-16 23:44] LABS: Thyroglobulin Antibody 15 U/mL (<=60); Thyroperoxidase Antibody <28 U/mL (<=60)
== END 2021-09-16 11:55 | disposition home or self-care (01) ==
LOC: NCHCN 11:54
PROVIDERS: PCP Nurse Practitioner Family; Visit Provider Nurse Practitioner Family
DX: R79.89 Other specified abnormal findings of blood chemistry (principal); R53.83 Other fatigue; R21 Rash and other nonspecific skin eruption
CPT/HCPCS: 80053; 85652; 86376; 84439; 84443; 84481; 86140; 86431; 88305

== ENCOUNTER 2022-01-20 15:36 | Outpatient (REF) | payer BC, SELFPAY ==
[2022-01-20 21:47] LABS: Abs Immature Grans 0.01 10^3/uL (0.0-0.06); Absolute Basophil Count 0.05 10^3/uL (0.0-0.2); Absolute Eosinophil Count 0.11 10^3/uL (0.0-0.7); Absolute Lymphocyte Count 2.13 10^3/uL (1.2-3.4); Absolute Monocyte Count 0.43 10^3/uL (0.1-0.8); Absolute Neutrophil Count 3.11 10^3/uL (1.2-6.7); Basophils % 0.9; Eosinophils % 1.9; HCT 39.2 % (36.0-46.0); HGB 13.1 g/dL (11.2-15.7); Immature Grans % 0.2; Lymphocytes % 36.5; MCH 28.7 pg (27.0-33.0); MCHC 33.4 % (32.0-36.0); MCV 86 fL (80-95); Monocytes % 7.4; Neutrophils % 53.1; Platelet Count 318 10^3/uL (130-400); RBC 4.56 10^6/uL (3.93-5.22); RDW 12.7 % (11.7-14.6); RDW-SD 39.8 fL; WBC 5.84 10^3/uL (4.4-10.8)
[2022-01-20 22:25] LABS: Iron 49 ug/dL (50-170); Total Iron Binding Capacity 294 ug/dL (250-450); Transferrin Sat 17 % (15-50)
[2022-01-20 22:55] LABS: Cholesterol 271 mg/dL (<200); Ferritin 100 ng/mL (8-252); HDL Cholesterol 47 mg/dL (40-60); TSH 1.17 uIU/mL (0.36-3.74); Triglyceride 478 mg/dL (<150); Vitamin B12 826 pg/mL (193-986)
[2022-01-20 23:26] LABS: FREE T4 0.78 ng/dL (0.76-1.46)
[2022-01-20 23:28] LABS: LDL CHOLESTEROL 157 mg/dL (<100)
[2022-01-21 17:13] LABS: T3,Free 3.8 pg/mL (2.8-5.3)
[2022-01-24 15:29] LABS: ANA Interpretation Negative (Negative)
== END 2022-01-20 15:37 | disposition home or self-care (01) ==
LOC: NCHCN 15:36
PROVIDERS: PCP Nurse Practitioner Family; Visit Provider Nurse Practitioner Family
DX: E55.9 Vitamin D deficiency, unspecified (principal); E61.1 Iron deficiency; R21 Rash and other nonspecific skin eruption; R79.89 Other specified abnormal findings of blood chemistry; R94.6 Abnormal results of thyroid function studies; M25.512 Pain in left shoulder; J30.9 Allergic rhinitis, unspecified
CPT/HCPCS: 80061; 82306; 83721; 82607; 82728; 83540; 83550; 84439; 84443; 84481; 85025; 86038

== ENCOUNTER 2022-05-23 16:18 | Outpatient (REF) | payer BC, SELFPAY ==
[2022-05-23 15:28] LABS: Mono Screening Negative (Negative)
== END 2022-05-23 16:19 | disposition home or self-care (01) ==
LOC: LBN 16:18
PROVIDERS: PCP Nurse Practitioner Family; Visit Provider Nurse Practitioner Family
DX: Z11.8 Encounter for screening for other infectious and parasitic diseases (principal)
CPT/HCPCS: 86308

== ENCOUNTER 2022-05-25 22:32 | Outpatient (REF) | payer BC, SELFPAY ==
[2022-05-25 22:12] LABS: Abs Immature Grans 0.01 10^3/uL (0.0-0.06); Absolute Basophil Count 0.08 10^3/uL (0.0-0.2); Absolute Eosinophil Count 0.19 10^3/uL (0.0-0.7); Absolute Lymphocyte Count 2.38 10^3/uL (1.2-3.4); Absolute Monocyte Count 0.53 10^3/uL (0.1-0.8); Absolute Neutrophil Count 3.02 10^3/uL (1.2-6.7); Basophils % 1.3; Eosinophils % 3.1; HCT 39.1 % (36.0-46.0); Immature Grans % 0.2; Lymphocytes % 38.3; MCH 28.3 pg (27.0-33.0); MCHC 33.2 % (32.0-36.0); MCV 85 fL (80-95); MPV 10.1 fL (8.0-11.0); Monocytes % 8.5; Neutrophils % 48.6; Platelet Count 328 10^3/uL (130-400); RDW 12.7 % (11.7-14.6); RDW-SD 39.7 fL; WBC 6.21 10^3/uL (4.4-10.8)
== END 2022-05-25 22:33 | disposition home or self-care (01) ==
LOC: NCHCN 22:32
PROVIDERS: PCP Nurse Practitioner Family; Visit Provider Nurse Practitioner Family
DX: R53.83 Other fatigue (principal)
CPT/HCPCS: 85025

== ENCOUNTER 2022-06-28 10:34 | Day surgery (SDC) | payer BC, SELFPAY ==
--- NOTE | 2022-06-27 21:43 | W.PM.DSUDISC ---
Date of service: 06/28/22 Time of Service: 12:50 Discharge Plan Disposition Patient Disposition: Home Condition: Good Discharge Details Reason For Visit: screening colonoscopy Attending Provider: Allen Howard Primary Care Provider: Maria Del Rosario Kapadia Home Meds and New Rx's Prescriptions: Continued sertraline [Zoloft] 100 mg tablet 200 mg PO DAILY loratadine [Claritin] 10 mg Tablet 10 mg PO DAILY cyanocobalamin (vitamin B-12) 1,000 mcg Tablet 1,000 mcg PO DAILY vitamin B complex [B-Complex] Tablet 1 tab PO DAILY cholecalciferol (vitamin D3) [Vitamin D3] 125 mcg (5,000 unit) Tablet 125 mcg PO DAILY Probiotic 5 billion cell Capsule, Sprinkle 1 cap PO DAILY Discontinued bisacodyl [Dulcolax (bisacodyl)] 5 mg tablet,delayed release (DR/EC) 5 mg PO ONCE Qty: 4 0RF Rx Instructions: Take according to provider's instructions for colonoscopy prep. polyethylene glycol 3350 17 gram/dose powder 17 g PO ONCE Qty: 238 0RF Rx Instructions: To be taken as directed by prescriber's office for colonoscopy prep. Discharge Instructions Additional Instructions: 1. If tolerated, consume a soft, low fiber diet for 1-2 days. 2[address] Do not drive, drink alcohol, operate machinery, make critical decisions, or do activities that require coordination or balance for 24 hours. 3. Because air was put into your colon during the procedure, expelling air from your rectum (passing gas or farting) is normal. 4. You may not have a bowel movement for 1-3 days because of the colonoscopy prep. This is normal. 5. Go directly to the emergency room if you notice any of the following: Develop chills (warm to touch), or if you have a thermometer and your temperature is above 101 Difficulty breathing or difficultly swallowing Persistent vomiting Severe abdominal pain, other than gas cramps Severe chest pain Black, tarry stools Any bleeding ? exceeding one tablespoon 6. Call your physician if the site where your intravenous was started becomes red, swollen, painful, and warm to touch. 7. Your physician has reviewed your pre-procedure medications. Please continue to take those medications as previously ordered. You will be given specific information/education regarding any changes to your medications before leaving. Activity:: Activity as Tolerated Diet:: As Tolerated Discharge Orders Discharge Orders: Discharge Order (Routine); Ordered 06/27/22 Ordered By: Allen Howard DS: Diagnosis Discharge Diagnosis (1) Screening for colon cancer: Status: Acute Asessment and Plan: I did not detect any polyps, or any abnormalities during your colonoscopy. I recommend a follow-up colonoscopy in 5 to 10 years.
--- NOTE | 2022-06-27 21:45 | W.COLOREPORT ---
Date of service: 06/28/22 Time of Service: 12:58 Colonoscopy Report Date of procedure: 06/28/22 Pre-op diagnosis general: Screening colonoscopy Post-op diagnosis procedure note: same Procedure: Colonoscopy Surgeon: Allen Howard Anesthesia Type: General:No Airway Estimated blood loss (mL): 0 Pathology: none sent Complications: None Disposition: same day Indications: Virginia is a 57-year-old woman with a past history of colorectal polyps who is here for her next screening colonoscopy Prep: Miralax/Dulcolax Procedure Start Time: 12:18 Procedure End Time: 12:44 Retraction Time: 18 Findings: Normal colonoscopy Procedure Description: After the induction of monitored anesthetic care, and with the patient in left lateral decubitus position, I began by performing an external anorectal exam.? Perineum and skin were normal, as was the anal verge.? There was no evidence of external hemorrhoids.? Next, I performed a digital rectal exam.? I did not appreciate any abnormal findings.? Next, I advanced a colonoscope into the rectal vault.? I performed retroflexion.? There were mild internal hemorrhoids.? Using insufflation, I then advanced the colonoscope beyond the rectal folds and into the sigmoid colon before advancing towards the cecum.? The quality of the prep was excellent.? The scope was noted to be in the cecum by identification of the ileocecal valve and appendiceal orifice.? I then began withdrawing the colonoscope using repeated irrigation as necessary for full evaluation of the colonic mucosa. ?Once the scope was withdrawn to the level of the rectum, great care was taken to examine portions of the rectal folds.? I did not see any evidence of any polyps anywhere along the colonoscopy. Finally, the scope was withdrawn and the patient was brought to the same-day surgery recovery unit as the anesthetic wore off. ?The findings and instructions were shared with the patient prior to discharge.
[2022-06-28 10:47] VITALS: BP 119/71; PULSE 82; RESP 16; TEMP 36.3; O2SAT 98
[2022-06-28] MEDS: Lactated Ringers 1,000 ML 80 ML IV (11:27)
--- NOTE | 2022-06-28 11:42 | W.ANESPRE ---
General Info Date of Service Date Performed: 06/28/22 Height: 5 ft 8 in Weight: 80.2 kg Body Mass Index (BMI): 26.9 Surgical Procedure: Operation Date: 06/28/22 12:05 Proposed Procedure Side Surgeon maria esther Howard MD Meds Allergies and Home Medications Allergies Allergy/AdvReac Type Severity Reaction Status Date / Time gluten Allergy Unknown Verified 06/28/22 10:58 lactose Allergy Unknown Verified 06/28/22 10:58 grapefruit juice Allergy Severe Anaphylaxsi Uncoded 06/28/22 10:58 s seasonal Allergy Uncoded 06/28/22 10:58 Home Medication Medication Instructions Recorded loratadine 10 mg tablet (Claritin) 10 mg PO DAILY 07/29/19 Lactobacil.acidophilus-Bifido.animalis 1 cap PO DAILY 02/26/20 5 billion cell sprinkle capsule (Probiotic) cholecalciferol (vitamin D3) 125 125 mcg PO DAILY 02/26/20 mcg (5,000 unit) tablet (Vitamin D3) cyanocobalamin (vitamin B-12) 1,000 mcg PO DAILY 02/26/20 1,000 mcg tablet vitamin B complex (B-Complex 1 tab PO DAILY 02/26/20 tablet) sertraline 100 mg tablet (Zoloft) 200 mg PO DAILY 06/30/21 Current Visit Medications: Current Medications Generic Name Dose Route Start Last Admin Trade Name Freq PRN Reason Stop Dose Admin Hyoscyamine Sulfate 0.125 mg 06/27/22 21:46 Hyoscyamine 0.125 Mg Sl/Oral/Chew SL DIRECTED PRN Ringer's Solution 1,000 mls @ 80 mls/hr 06/28/22 06:00 06/28/22 11:27 IV 07/27/22 23:59 80 mls/hr INFUSION LEONCIO Administration IV Miscellaneous Supplies 1 each 06/28/22 06:00 Iv Access IV 07/27/22 23:59 DIRECTED LEONCIO Ondansetron HCl 4 mg 06/27/22 21:46 Ondansetron 4 Mg/2 Ml Vial IVP Q4H PRN PRN Nausea / Vomiting Sodium Chloride 0 ml 06/28/22 06:00 Normal Saline Flush 10 Ml Syr IV 07/27/22 23:59 PRN PRN Sodium Chloride 0 ml 06/28/22 06:00 Normal Saline 10 Ml Vial IJ 07/27/22 23:59 DIRECTED PRN Sterile Water 0 ml 06/28/22 06:00 Water,Injection,Sterile 10 Ml Vial IJ 07/27/22 23:59 DIRECTED PRN PFSH Active Problems Active Problems: Problem Status Onset Code Left lateral epicondylitis M77.12 Difficult airway for intubation T88.4XXA Pelvic pain R10.2 Abdominal bloating R14.0 Rash R21 Chronic fatigue R53.82 Screening for colon cancer Z12.11 Medical History Medical History Allergic rhinitis Depression with anxiety Gluten intolerance Hyperlipidemia Iron deficiency Lactose intolerance Sessile colonic polyp (~10/27/16) [facility], [place], [place] Vitamin D deficiency Medical History Comments:: 06/28/22 - pt reports Anesthesia had difficulty opening jaw/intubation at last surgical procedure ( Left elbow surgery). Surgical History Surgical History H/O elbow surgery History of tonsillectomy and adenoidectomy Hx of cholecystectomy Hx of shoulder surgery 2017 Arthroscopy S/P left knee arthroscopy 1996 & 2011 Tobacco Smoking/Tobacco Use Status: Former Tobacco Use Alcohol Alcohol Intake: current Alcohol intake frequency: holidays/special occasions only Substance Use Substance use: Never Substance use type: does not use Vital Signs and Lab Results Vital Signs Most Recent Vital Signs in EMR: Most Recent Vital Signs Temp Pulse Resp BP Pulse Ox 36.3 C L 82 16 119/71 98 06/28/22 10:47 06/28/22 10:47 06/28/22 10:47 06/28/22 10:47 06/28/22 10:47 Lab Results Blood Type / Crossmatch: No Data to Display Complete Blood Count: No Data to Display Complete Metabolic Panel: No Data to Display Liver Function Panel: No Data to Display Coagulation Panel: No Data to Display Cardiac Panel: No Data to Display Arterial Blood Gas: No Data to Display Venous Blood Gas: No Data to Display Pancreas Panel: No Data to Display Thyroid Panel: No Data to Display Infectious Disease: No Data to Display Blood Cultures: No Data to Display Toxicology Panel: No Data to Display Anesthesia Assessment and Plan Anesthesia History Personal History: Other (Hx Airway Issues) Family History: No Family History of Anesthesia Complications Exercise Tolerance Exercise Tolerance: Metabolic Equivalents>4 Pertinent Negatives Pertinent Negatives: No Symptoms of GERD, No Major Cardiovascular Symptoms or Complaints, No Major Pulmonary Symptoms or Complaints (Quit 5 years ago ) and No History of CVA/TIA Cardiac & Pulmonary Exam Cardiac Exam: Normal S1/S2 Heart Sounds Pulmonary Exam: Clear Bilateral Breath Sounds Implantable Cardiac Device Does patient have a Pacemaker or an ICD?: No Airway Exam Known Difficult Airway: No Mallampati Class: 4 Mouth Opening: Narrow (< 3cm) Thyromental Distance: Greater than 3 cm Neck Range of Motion: Full ROM Neck Circumference: Thick Teeth Condition: Normal Dentition ASA Classification ASA Score: ASA 2 Emergency Case?: No NPO Status NPO Status: NPO Clears >2 hours, Solids >8 hours Anesthesia Plan Resuscitation Status: Full Code Anesthesia Technique: General Anesthesia Airway Planned: Natural Airway Monitors Used: Standard Monitors
[2022-06-28 11:47] VITALS: BMI 26.9
[2022-06-28 12:51] VITALS: BP 113/79; PULSE 65; RESP 16; TEMP 36; O2SAT 98
--- NOTE | 2022-06-28 12:52 | W.ANESPOSTOP ---
Postoperative Evaluation Date, Time and Location Date Performed: 06/28/22 Time Performed: 12:52 Patient Location: Day Surgery Unit Vital Signs Most Recent Imported Vital Signs: Most Recent Vital Signs Temp Pulse Resp BP Pulse Ox 36.3 C L 82 16 119/71 98 06/28/22 10:47 06/28/22 10:47 06/28/22 10:47 06/28/22 10:47 06/28/22 10:47 Most Recent Manually Entered Vital Signs: Adult Blood Pressure: 113/79 Heart Rate: 70 Respirations: 12 Oxygen Saturation (%): 97 Temperature (C): 36.3 C Pain Score (0-10 Scale): 0 Pain Score Most Recent Pain Score: Most Recent Pain Score Pain Level 0 06/28/22 10:47 Assessment Mental Status: Awake (Alert & Oriented to Patient Baseline) Airway and Respiratory Function: Patent airway with normal (patient baseline) respiratory exam Cardiovascular Function: Hemodynamically Stable Hydration Status: Adequately Hydrated Nausea & Vomiting: No Nausea or Vomiting Pain: Pt. Denies Any Pain Peripheral Nerve Block: Patient did not receive a nerve block
[2022-06-28 12:55] VITALS: BP 113/79; PULSE 70; RESP 12; TEMPC 36.3; O2SAT 97
[2022-06-28 13:19] VITALS: BP 119/51; PULSE 59; RESP 16; TEMP 36.2; O2SAT 99
== END 2022-06-28 13:29 | disposition home or self-care (01) ==
PROVIDERS: PCP Nurse Practitioner Family; Visit Provider Surgery
PROC: 0DJD8ZZ Inspection of Lower Intestinal Tract, Via Natural or Artificial Opening Endoscopic (ICD-10-PCS; CPT 45378; principal; 2022-06-28 12:00)
DX: Z12.11 Encounter for screening for malignant neoplasm of colon (principal); Z86.010 Personal history of colon polyps
CPT/HCPCS: 45378

== ENCOUNTER 2022-07-25 15:49 | Outpatient (REF) | payer BC, SELFPAY ==
[2022-07-25 21:42] LABS: FREE T4 0.76 ng/dL (0.76-1.46); TSH 1.64 uIU/mL (0.36-3.74)
[2022-07-25 22:09] LABS: Ferritin 71 ng/mL (8-252)
[2022-07-25 22:32] LABS: Iron 56 ug/dL (50-170); Total Iron Binding Capacity 355 ug/dL (250-450); Transferrin Sat 16 % (15-50)
[2022-07-26 18:37] LABS: T3,Free 4.4 pg/mL (2.8-5.3)
[2022-07-27 13:59] LABS: ANA Interpretation Negative (Negative)
== END 2022-07-25 15:50 | disposition home or self-care (01) ==
LOC: NCHCN 15:49
PROVIDERS: PCP Nurse Practitioner Family; Visit Provider Nurse Practitioner Family
DX: E61.1 Iron deficiency (principal); E78.5 Hyperlipidemia, unspecified; R53.83 Other fatigue; R79.89 Other specified abnormal findings of blood chemistry; F41.8 Other specified anxiety disorders; R94.6 Abnormal results of thyroid function studies; J30.9 Allergic rhinitis, unspecified
CPT/HCPCS: 82728; 83540; 83550; 84439; 84443; 84481; 86038

== ENCOUNTER 2022-08-29 01:20 | Outpatient (CLI) | payer BC, SELFPAY ==
--- NOTE | 2022-08-29 15:15 | DI.MAMMO_ITS ---
Exam(s) MAMMO SCREENING EXAM: MAMMO SCREENING CLINICAL HISTORY: SCREENING, Z12.39 TECHNIQUE: Mammograms were interpreted according to the usual protocol including computer analysis w [employer] CAD system, tomosynthesis and C-view imaging. COMPARISON: 2021 FINDINGS: The breasts are composed of scattered fibroglandular densities, Breast Density category B. There is a question of increased prominence of dense tissue in the upper outer quadrant of the left b reast versus overlying tissue. No suspicious microcalcifications are seen in either breast. No skin thickening or abnormal axillary lymph nodes are seen. There has been no significant change in the appearance of the right breast from the prior exam. IMPRESSION: Left breast: BI-RADS Category 0 - Assessment Incomplete: Need additional imaging evaluation. Spot co mpression views and ultrasound are requested for further evaluation. Right breast: Yearly screening mammography is recommended. Breast Density - Category B, scattered fibroglandular densities. A negative radiographic report should not delay biopsy if a dominant or clinically suspicious mass is present. Up to ten percent of cancers are not identified on mammography. A negative report may reinforce clinical impression. Adenosis and dense breasts may obscure an underlying neoplasm. False positive reports average 6 to 10%. Patient will receive a letter notifying them of these results.
== END 2022-08-29 01:40 ==
LOC: DI 01:21
PROVIDERS: PCP Nurse Practitioner Family; Visit Provider Nurse Practitioner Family
DX: Z12.31 Encounter for screening mammogram for malignant neoplasm of breast (principal); R92.8 Other abnormal and inconclusive findings on diagnostic imaging of breast
CPT/HCPCS: 77063; 77067

== ENCOUNTER 2022-09-02 01:11 | Outpatient (CLI) | payer BC, SELFPAY ==
--- NOTE | 2022-09-02 10:00 | DI.US_ITS ---
Exam(s) MG MAMMO SCREEN CALL BACK UNI US BREAST LT LIMITED EXAM: MG MAMMO SCREEN CALL BACK UNI CLINICAL HISTORY: DENSE TISSUE UPPER OUTER QUADRANT OF LT BREAST. TECHNIQUE: Craniocaudal and mediolateral oblique spot compression digital Mammography views of the l eft breast with Tomosynthesis and left breast ultrasound. COMPARISON: MG MG MAMMO SCREENING from 07/29/2021 MG MG MAMMO SCREENING from 08/29/2022 FINDINGS: Mammography/Tomosynthesis: Masses/Architectural Distortion: None seen. The questioned area increased density in a router quadran t disperses on spot compression views consistent with overlying fibroglandular tissue. No change in appearance from prior exam. Microcalcifictions: No suspicious pleomorphic-type are seen. Skin Thickening/Nipple Retraction: None. Left breast US: Echotexture: Normal appearance of the glandular tissue. Shadowing: No suspicious foci. Cyst: None. Solid lesions: None seen. Ductal dilation: None. IMPRESSION: 1. No evidence of malignancy is noted. 2. Unless there is more urgent need, follow-up screening mammography is recommended, as per [employer] guidelines. Breast Density - Category B - Scattered areas of fibroglandular density A negative radiographic report should not delay biopsy if a dominant or clinically suspicious mass is present. Up to ten percent of cancers are not identified on mammography. A negative report may reinforce clinical impression. Adenosis and dense breasts may obscure an underlying neoplasm. False positive reports average 6 to 10%. Patient will receive a letter notifying them of these results.
== END 2022-09-02 01:31 ==
LOC: DI 01:11
PROVIDERS: PCP Nurse Practitioner Family; Visit Provider Nurse Practitioner Family
DX: Z12.31 Encounter for screening mammogram for malignant neoplasm of breast (principal)
CPT/HCPCS: 76642; 77063; 77067

== ENCOUNTER 2022-11-08 11:49 | Outpatient (REF) | payer BC, SELFPAY ==
--- NOTE | 2022-11-08 11:40 | PAPFT_PTH ---
PATIENT: Virginia Marie LOC: [facility] U#:[id number] AGE/SX: 57/F ROOM: RE11/08/[address]: Caryl Aggarwal : 1965 BED: DIS: 11/08/2022 SPEC #: [id number] RECD: 11/08/22 12:53 STATUS: CHAR REAllison #: [id number] [place]: 11/08/22 11:[address]: Caryl Aggarwal DEPT: [facility] Cytology RECD BY: Rose Presley ENTERED: 11/08/22 12:54 SP TYPE: PAPFT OTHR DR: Maria Del Rosario [place] Tissues: 1 - CX/ENDOCX FOR PAP SMEARS Procedures: PAP THIN PREP/[facility] Screening HPV DNA PROBE Comments: [id number]
== END 2022-11-08 11:50 | disposition home or self-care (01) ==
LOC: LBN 11:49
PROVIDERS: PCP Nurse Practitioner Family; Visit Provider Obstetrics & Gynecology Gynecology
DX: Z12.4 Encounter for screening for malignant neoplasm of cervix (principal); R87.610 Atypical squamous cells of undetermined significance on cytologic smear of cervix (ASC-US); Z11.51 Encounter for screening for human papillomavirus (HPV)
CPT/HCPCS: 88142; 87624

== ENCOUNTER 2024-01-17 14:00 | Outpatient (REF) | payer BC, SELFPAY ==
[2024-01-17 17:00] LABS: Calculated LDL 216 mg/dL (<100); Cholesterol 302 mg/dL (<200); HDL Cholesterol 61 mg/dL (40-60); Triglyceride 125 mg/dL (<150); Vitamin B12 643 pg/mL (193-986)
[2024-01-17 17:18] LABS: FREE T4 0.78 ng/dL (0.76-1.46)
[2024-01-17 22:52] LABS: T3,Free 4.3 pg/mL (2.8-5.3)
[2024-01-18 08:38] LABS: Thyroperoxidase Antibody <28 U/mL (<=60)
[2024-01-23 12:28] LABS: IgA 95 mg/dL (85-499); Interpretation (See Note); Tissue Transglutaminase IgA <4.0 CU (<20.0)
== END 2024-01-17 14:01 | disposition home or self-care (01) ==
LOC: NCHCN 14:00
PROVIDERS: PCP Nurse Practitioner Family; Visit Provider Nurse Practitioner Family
DX: Z00.00 Encounter for general adult medical examination without abnormal findings (principal)
CPT/HCPCS: 80061; 82784; 83516; 82607; 84439; 84443; 84481; 86376

== ENCOUNTER → 2024-02-09 00:37 | Outpatient (CLI) | payer BC, SELFPAY ==
--- OUTSIDE RECORDS SUMMARY | 2024-01-02 02:00 | XMS_ITS | Continuity of Care Document ---
Author Name Unknown Organization [facility] Address [address] [place] [address] Encounter [facility] FIN NBR [id number] Date(s): 04/13/22 - 04/13/22 [facility] [address] [place] [address]- Discharge Disposition: Home or Self Care Attending Physician: Irlanda Chan PA-C Allergies, Adverse Reactions, Alerts No Known Medication Allergies Medications ondansetron 4 mg oral tablet 4 mg = 1 tab, Oral, every 4 hr, PRN nausea/vomiting, # 12 tab, 0 Refill(s) Start Date: 04/13/22 Status: Ordered Vital Signs Most recent to oldest [Reference Range]: 1 Temperature Oral [35.8-37.3 Deg C] 36.6 Deg C (04/13/22 1:03 PM) Peripheral Pulse Rate [60-100 bpm] 63 bp m (04/13/22 1:03 PM) Respiratory Rate [12-24 br/min] 18 br/mi n (04/13/22 1:03 PM) Blood Pressure [90-140/60-90 mmHg] 110/5 6mmHg (04/13/22 1:03 PM) Weight 77.11 kg (04/13/22 1:03 PM) Weight Measured (lbs) 169.998 lb (04/13/22 1:03 PM) Social History Social History Type Response Tobacco Never tobacco user T obacco Use:. Sex
--- OUTSIDE RECORDS SUMMARY | 2024-01-02 02:00 | XMS_ITS | Continuity of Care Document ---
Author Name Unknown Organization [facility] Address [address] [place] [address] Encounter [facility] FIN NBR [id number] Date(s): 06/20/22 - 06/20/22 [facility] [address] [place], [place] [address] Discharge Disposition: Home or Self Care Allergies, Adverse Reactions, Alerts No Known Medication Allergies Medications ondansetron 4 mg oral tablet 4 mg = 1 tab, Oral, every 4 hr, PRN nausea/vomiting, # 12 tab, 0 Refill(s) Start Date: 04/13/22 Status: Ordered Results Laboratory List Name Date SARS-CoV-2 (COVID-19) Antigen (Binax) PO CT 06/20/22 Most recent to oldest [Reference Range]: 1 SARS-CoV-2 (COVID-19) Ag (Binax) [Negati ve] Negative (06/20/22 1:08 PM) Social History Social History Type Response Tobacco Never tobacco user T obacco Use:. Sex
--- OUTSIDE RECORDS SUMMARY | 2024-01-02 02:00 | XMS_ITS | Continuity of Care Document ---
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 Admitting Physician: KEE DANGELO M.D. Allergies, Adverse Reactions, Alerts No Known Medication Allergies Assessment and Plan Diagnostic Tests Pending * Miscellaneous Testing LC 10/27/22 * Miscellaneous Testing LC 10/27/22 Medications ondansetron 4 mg oral tablet 4 mg = 1 tab, Oral, every 4 hr, PRN nausea/vomiting, # 12 tab, 0 Refill(s) Start Date: 04/13/22 Status: Ordered Results Laboratory List Name Date Cortisol 10/27/22 FSH Level 10/27/22 LDL Direct 10/27/22 T3 Total 10/27/22 Thyroid Stimulating Hormone 10/27/22 Most recent to oldest [Reference Range]: 1 TSH [0.45-5.33 mIntlUnit/mL] 1.33 mIntlU nit/mL (10/27/22 8:04 AM) T3 Total [0.87-1.78 ng/mL] 1.01 ng/mL (10/27/22 8:04 AM) FSH 60.9 mIntlUnit/mL *NA* (10/27/22 8:04 AM) Cortisol, Untimed 17.2 mcg/dL *NA* (10/27/22 8:04 AM) LDL, Direct [10.0-100.0 mg/dL] 172.1 mg/ dL *HI* (10/27/22 8:04 AM) Social History Social History Type Response Tobacco Never tobacco user T obacco Use:. Sex Patient Care team information Care Team Personnel Name: MELODIE SOLIS APRN Position: No Access Member Role: Primary Care Physician Address: Address: [address] [place] [id number] Care Team Related Persons Name: MUNDO RAPP
--- OUTSIDE RECORDS SUMMARY | 2024-01-02 02:00 | XMS_ITS | Continuity of Care Document ---
Author Name Unknown Organization [facility] Address [address] [place] [address] Encounter [facility] NBR [id number] Date(s): 04/13/22 - 04/13/22 [facility] [address] [place] [address]- [place] Encounter Diagnosis Injury of head and neck(Discharge Diagnosis) - 04/13/22 Unspecified injury of neck, initial encounter(Discharge Diagnosis) - 04/13/22 Head injury(Discharge Diagnosis) - 04/13/22 Neck muscle strain(Discharge Diagnosis) - 04/13/22 Discharge Disposition: Home-No Follow Up Attending Physician: Jeffrey Gonzalez MD Admitting Physician: Jeffrey Gonzalez MD Allergies, Adverse Reactions, Alerts No Known Medication Allergies Functional Status 04/13/22 Other exposure to Infectious Disease Non e Medications ondansetron 4 mg oral tablet 4 mg = 1 tab, Oral, every 4 hr, PRN nausea/vomiting, # 12 tab, 0 Refill(s) Start Date: 04/13/22 Status: Ordered Mental Status 04/13/22 Eye Opening Response [place] Spontaneous ly Best Verbal Response [place] Oriented Best Motor Response [place] Obeys comman ds [place] Coma Score 15 Results Radiology Reports * Exam Date Time Procedure Performing Provider Status 04/13/22 3:[address] Spine Cervical w/o Contrast Elisa Nunn; Radha (Verified) Notes: (CT Spine Cervical w/o Contrast) Reason For Exam: Trauma CT Spine Cervical w/o Contrast EXAM DESCRIPTION: CT Spine Cervical w/o Contrast 04/13/2022 INDICATION: TRAUMA TECHNIQUE: All CT scans at this facility use at least one of these dose optimization techniques: Automated exposure control; mA and/or kV adjustment per patient size (includes targeted exams where dose is matched to clinical indication); or iterative reconstruction. CT examination of the cervical spine with thin section axial images including sagittal and coronal MPR images performed on a separate workstation under concurrent supervision. COMPARISON: None FINDINGS: No acute fracture or subluxation. Prevertebral soft tissues are within normal limits. Spondylotic changes at C5-6 with intervertebral disc space narrowing and mild endplate osteophyte formation. Remaining intervertebral disc spaces are well maintained. No focal lytic or sclerotic lesion. Visualized lung apices are clear. Paraspinal soft tissues are unremarkable. IMPRESSION: No acute fracture or subluxation. JOB #: [id number] Final Signed by: Tony De Jesus MD Signed (Electronic Signature): 04/13/2022 3:17 pm * Exam Date Time Procedure Performing Provider Status 04/13/22 3:[address] Head w/o Contrast Elisa Nunn; Allison th (Verified) Notes: (CT Head w/o Contrast) Reason For Exam: trauma CT Head w/o Contrast EXAM DESCRIPTION: CT Head w/o Contrast 04/13/2022 INDICATION: TRAUMA TECHNIQUE: All CT scans at this facility use at least one of these dose optimization techniques: Automated exposure control; mA and/or kV adjustment per patient size (includes targeted exams where dose is matched to clinical indication); or iterative reconstruction. Axial CT images of the head without contrast. COMPARISON: None FINDINGS: No acute intracranial hemorrhage, mass effect or midline shift. No hydrocephalus. Ovalle-white differentiation is maintained. Basal cisterns remain patent. Mild bilateral basal ganglia calcification The calvarium appears intact. The visualized paranasal sinuses are grossly clear. IMPRESSION: No acute intracranial hemorrhage, mass effect or midline shift. JOB #: [id number] Final Signed by: Tony De Jesus MD Signed (Electronic Signature): 04/13/2022 3:11 pm Vital Signs Most recent to oldest [Reference Range]: 1 Temperature Temporal Artery [36-38 Deg C ] 36.5 Deg C (04/13/22 1:40 PM) Peripheral Pulse Rate [60-100 bpm] 71 bp m (04/13/22 1:40 PM) Respiratory Rate [12-24 br/min] 18 br/mi n (04/13/22 1:40 PM) Blood Pressure [90-140/60-90 mmHg] 133/8 8mmHg (04/13/22 1:40 PM) Weight Dosing 77.00 kg (04/13/22 2:36 PM) Weight Estimated 77.00 kg (04/13/22 1:40 PM) Height/Length Dosing 172.000 cm (04/13/22 2:36 PM) Height/Length Estimated 172.000 cm (04/13/22 1:40 PM) Social History Social History Type Response Tobacco Never tobacco user T obacco Use:. Sex Hospital Discharge Instructions Patient Education 04/13/2022 14:29:39 Cervical Sprain Cervical Sprain A cervical sprain is a stretch or tear in one or more of the ligaments in the neck. Ligaments are the tissues that connect bones. Cervical sprains can range from mild to severe. Severe cervical sprains can cause the spinal bones (vertebrae) in the neck to be unstable. This can result in spinal corddamage and in serious nervous system problems. The time that it takes for a cervical sprain to heal depends on the cause and extent of the injury.Most cervical sprains heal in 4???6 weeks. What are the causes? Cervical sprains may be caused by trauma, such as an injury from a motor vehicle accident, a fall, or a sudden forward and backward whipping movement of the head and neck (whiplash injury). Mild cervical sprains may be caused by wear and tear over time. What increases the risk? The following factors may make you more likely to develop this condition: ??? Participating in activities that have a high risk of trauma to the neck. These include contact sports, auto racing, gymnastics, and diving. ??? Taking risks when driving or riding in a motor vehicle. ??? Osteoarthritis of the spine. ??? Poor strength and flexibility of the neck. ??? A previous neck injury. ??? Poor posture. ??? Spending long periods in certain positions that put stress on the neck, such as sitting at a computer for a long time. What are the signs or symptoms? Symptoms of this condition include: ??? Pain, soreness, stiffness, tenderness, swelling, or a burning sensation in the front, back, or sides of the neck, shoulders, or upper back. ??? Sudden tightening of neck muscles (spasms). ??? Limited ability to move the neck. ??? Headache. ??? Dizziness. ??? Nausea or vomiting. ??? Weakness, numbness, or tingling in a hand or an arm. Symptoms may develop right away after injury, or they may develop over a few days. In some cases, symptoms may go away with treatment and return (recur) over time. How is this diagnosed? This condition may be diagnosed based on: ??? Your medical history. ??? Your symptoms. ??? Any recent injuries or known neck problems that you have, such as arthritis in the neck. ??? A physical exam. ??? Imaging tests, such as X-rays, MRI, and CT scan. How is this treated? This condition is treated by resting and icing the injured area and doing physical therapy exercises. Heat therapy may be used 2???3 days after the injury occurred if there is no swelling. Depending on the severity of your condition, treatment may also include: ??? Keeping your neck in place (immobilized) for periods of time. This may be done using: ??? A cervical collar. This supports your chin and the back of your head. ??? A cervical traction device. This is a sling that holds up your head. The device removes weight and pressure from your neck, and it may help to relieve pain. ??? Medicines that help to relieve pain and inflammation. ??? Medicines that help to relax your muscles (muscle relaxants). ??? Surgery. This is rare. Follow these instructions at home: Medicines ??? Take tcpn-for-jwcbvav and prescription medicines only as told by your health care provider. ??? Ask your health care provider if the medicine prescribed to you: ??? Requires you to avoid driving or using heavy machinery. ??? Can cause constipation. You may need to take these actions to prevent or treat constipation: ??? Drink enough fluid to keep your urine pale yellow. ??? Take zyaw-oyh-ecvhwwd or prescription medicines. ??? Eat foods that are high in fiber, such as beans, whole grains, and fresh fruits and vegetables. ??? Limit foods that are high in fat and processed sugars, such as fried or sweet foods. If you have a cervical collar: ??? Wear the collar as told by your health care provider. Do not remove it unless told. ??? Ask before making any adjustments to your collar. ??? If you have long hair, keep it outside of the collar. ??? Ask your health care provider if you may remove the collar for cleaning and bathing. If so: ??? Follow instructions about how to remove it safely. ??? Clean it by hand with mild soap and water and air-dry it completely. ??? If your collar has removable pads, remove them every 1???2 days and wash them by hand with soapand water. Let them air-dry completely before putting them back in the collar. ??? Tell your health care provider if your skin under the collar has irritation or sores. Managing pain, stiffness, and swelling ??? If directed, use a cervical traction device as told. ??? If directed, put ice on the affected area. To do this: ??? Put ice in a plastic bag. ??? Place a towel between your skin and the bag. ??? Leave the ice on for 20 minutes, 2???3 times a day. ??? If directed, apply heat to the affected area before you do your physical therapy or as often astold by your health care provider. Use the heat source that your health care provider recommends, such as a moist heat pack or a heating pad. ??? Place a towel between your skin and the heat source. ??? Leave the heat on for 20???30 minutes. ??? Remove the heat if your skin turns bright red. This is especially important if you are unable to feel pain, heat, or cold. You may have a greater risk of getting burned. Activity ??? Do not drive while wearing a cervical collar. If you do not have a cervical collar, ask if it is safe to drive while your neck heals. ??? Do not lift anything that is heavier than 10 lb (4.5 kg), or the limit that you are told, untilyour health care provider says that it is safe. ??? Rest as told by your health care provider. ??? If physical therapy was prescribed, do exercises as told by your health care provider or physical therapist. ??? Return to your normal activities as told by your health care provider. Avoid positions and activities that make your symptoms worse. Ask your health care provider what activities are safe for you. General instructions ??? Do not use any products that contain nicotine or tobacco, such as cigarettes, e-cigarettes, andchewing tobacco. These can delay healing. If you need help quitting, ask your health care provider. ??? Keep all follow-up visits as told by your health care provider or physical therapist. This is important. How is this prevented? To prevent a cervical sprain from happening again: ??? Use and maintain good posture. Make any needed adjustments to your workstation to help you do this. ??? Exercise regularly as told by your health care provider or physical therapist. ??? Avoid risky activities that may cause a cervical sprain. Contact a health care provider if you have: ??? Symptoms that get worse or do not get better after 2 weeks of treatment. ??? Pain that gets worse or does not get better with medicine. ??? New, unexplained symptoms. ??? Sores or irritated skin on your neck from wearing your cervical collar. Get help right away if: ??? You have severe pain. ??? You develop numbness, tingling, or weakness in any part of your body. ??? You cannot move a part of your body (you have paralysis). ??? You have neck pain along with severe dizziness or headache. Summary ??? A cervical sprain is a stretch or tear in one or more of the ligaments in the neck. ??? Cervical sprains may be caused by trauma, such as an injury from a motor vehicle accident, a fall, or a sudden forward and backward whipping movement of the head and neck (whiplash injury). ??? Symptoms may develop right away after injury, or they may develop over a few days. ??? This condition may be treated with rest, ice, heat, medicines, physical therapy, and surgery. This information is not intended to replace advice given to you by your health care provider. Make sure you discuss any questions you have with your health care provider. Document Revised: 03/04/2020 Document Reviewed: 03/04/2020 [employer] Patient Education ?? 2021 [employer]. 04/13/2022 14:29:33 Head Injury, Adult Head Injury, Adult There are many types of head injuries. Head injuries can be as minor as a small bump, or they can be a serious medical issue. More severe head injuries include: ??? A jarring injury to the brain (concussion). ??? A bruise (contusion) of the brain. This means there is bleeding in the brain that can cause swelling. ??? A cracked skull (skull fracture). ??? Bleeding in the brain that collects, clots, and forms a bump (hematoma). After a head injury, most problems occur within the first 24 hours, but side effects may occur up to 7???10 days after the injury. It is important to watch your condition for any changes. You may need to be observed in the emergency department or urgent care, or you may be admitted to the hospital. What are the causes? There are many possible causes of a head injury. Serious head injuries may be caused by car accidents, bicycle or motorcycle accidents, sports injuries, falls, or being struck by an object. What are the symptoms? Symptoms of a head injury include a contusion, bump, or bleeding at the site of the injury. Other physical symptoms may include: ??? Headache. ??? Nausea or vomiting. ??? Dizziness. ??? Blurred or double vision. ??? Being uncomfortable around bright lights or loud noises. ??? Seizures. ??? Feeling tired. ??? Trouble being awakened. ??? Loss of consciousness. Mental or emotional symptoms may include: ??? Irritability. ??? Confusion and memory problems. ??? Poor attention and concentration. ??? Changes in eating or sleeping habits. ??? Anxiety or depression. How is this diagnosed? This condition can usually be diagnosed based on your symptoms, a description of the injury, and a physical exam. You may also have imaging tests done, such as a CT scan or an MRI. How is this treated? Treatment for this condition depends on the severity and type of injury you have. The main goal of treatment is to prevent complications and allow the brain time to heal. Mild head injury If you have a mild head injury, you may be sent home, and treatment may include: ??? Observation. A responsible adult should stay with you for 24 hours after your injury and check on you often. ??? Physical rest. ??? Brain rest. ??? Pain medicines. Severe head injury If you have a severe head injury, treatment may include: ??? Close observation. This includes hospitalization with the following care: ??? Frequent physical exams. ??? Frequent checks of how your brain and nervous system are working (neurological status). ??? Checking your blood pressure and oxygen levels. ??? Medicines to relieve pain, prevent seizures, and decrease brain swelling. ??? Airway protection and breathing support. This may include using a ventilator. ??? Treatments that monitor and manage swelling inside the brain. ??? Brain surgery. This may be needed to: ??? Remove a collection of blood or blood clots. ??? Stop the bleeding. ??? Remove a part of the skull to allow room for the brain to swell. Follow these instructions at home: Activity ??? Rest and avoid activities that are physically hard or tiring. ??? Make sure you get enough sleep. ??? Let your brain rest by limiting activities that require a lot of thought or attention, such as: ??? Watching TV. ??? Playing memory games and puzzles. ??? Job-related work or homework. ??? Working on the computer, using social media, and texting. ??? Avoid activities that could cause another head injury, such as playing sports, until your health care provider approves. Having another head injury, especially before the first one has healed, can be dangerous. ??? Ask your health care provider when it is safe for you to return to your regular activities, including work or school. Ask your health care provider for a msoa-aa-lxbt plan for gradually returningto activities. ??? Ask your health care provider when you can drive, ride a bicycle, or use heavy machinery. Your ability to react may be slower after a brain injury. Do not do these activities if you are dizzy. Lifestyle ??? Do not drink alcohol until your health care provider approves. Do not use drugs. Alcohol and certain drugs may slow your recovery and can put you at risk of further injury. ??? If it is harder than usual to remember things, write them down. ??? If you are easily distracted, try to do one thing at a time. ??? Talk with family members or close friends when making important decisions. ??? Tell your friends, family, a trusted colleague, and fresh work inspector about your injury, symptoms, and restrictions. Have them watch for any new or worsening problems. General instructions ??? Take qthu-bii-pwqyfjm and prescription medicines only as told by your health care provider. ??? Have someone stay with you for 24 hours after your head injury. This person should watch you for any changes in your symptoms and be ready to seek medical help. ??? Keep all follow-up visits as told by your health care provider. This is important. How is this prevented? Work on improving your balance and strength to avoid falls. ??? Wear a seat belt when you are in a moving vehicle. ??? Wear a helmet when riding a bicycle, skiing, or doing any other sport or activity that has a risk of injury. ??? If you drink alcohol: ??? Limit how much you use to: ??? 0???1 drink a day for non women. ??? 0???2 drinks a day for men. ??? Be aware of how much alcohol is in your drink. In the [place] one drink equals one 12 oz bottle of beer (355 mL), one 5 oz glass of wine (148 mL), or one 1?? oz glass of hard liquor (44 mL). ??? Take safety measures in your home, such as: ??? Removing clutter and tripping hazards from floors and stairways. ??? Using grab bars in bathrooms and handrails by stairs. ??? Placing non-slip mats on floors and in bathtubs. ??? Improving lighting in dim areas. Where to find more information ??? Centers for Disease Control and Prevention: www.cdc.gov Get help right away if: ??? You have: ??? A severe headache that is not helped by medicine. ??? Trouble walking or weakness in your arms and legs. ??? Clear or bloody fluid coming from your nose or ears. ??? Changes in your vision. ??? A seizure. ??? Increased confusion or irritability. ??? Your symptoms get worse. ??? You are sleepier than normal and have trouble staying awake. ??? You lose your balance. ??? Your pupils change size. ??? Your speech is slurred. ??? Your dizziness gets worse. ??? You vomit. These symptoms may represent a serious problem that is an emergency. Do not wait to see if the symptoms will go away. Get medical help right away. Call your local emergency services (911 in the [place] Do not drive yourself to the hospital. Summary ??? Head injuries can be minor, or they can be a serious medical issue requiring immediate attention. ??? Treatment for this condition depends on the severity and type of injury you have. ??? Have someone stay with you for 24 hours after your injury and check on you often. ??? Ask your health care provider when it is safe for you to return to your regular activities, including work or school. ??? Head injury prevention includes wearing a seat belt in a motor vehicle, using a helmet on a bicycle, limiting alcohol use, and taking safety measures in your home. This information is not intended to replace advice given to you by your health care provider. Make sure you discuss any questions you have with your health care provider. Document Revised: 05/08/2020 Document Reviewed: 05/08/2020 [employer] Patient Education ?? 2021 [employer]. Follow Up Care 04/13/2022 13:40:23 With:Follow up with primary care provider Address: When:3 to 5 days Comments:if not improving With:Tylenol/Motrin for Pain/Fever Relief Address:Unknown When:1 month With:Drink Fluids Address:Unknown When:[address] Head WO contrast * Tony De Jesus MD: VERIFY, VERIFY Event Display: Report EXAM DESCRIPTION: CT Head w/o Contrast 04/13/2022 INDICATION: TRAUMA TECHNIQUE: All CT scans at this facility use at least one of these dose optimization techniques: Automated exposure control; mA and/or kV adjustment per patient size (includes targeted exams where dose is matched to clinical indication); or iterative reconstruction. Axial CT images of the head without contrast. COMPARISON: None FINDINGS: No acute intracranial hemorrhage, mass effect or midline shift. No hydrocephalus. Ovalle-white differentiation is maintained. Basal cisterns remain patent. Mild bilateral basal ganglia calcification The calvarium appears intact. The visualized paranasal sinuses are grossly clear. IMPRESSION: No acute intracranial hemorrhage, mass effect or midline shift. JOB #: [id number] Final Signed by: Tony De Jesus MD Signed (Electronic Signature): 04/13/2022 3:[address] Cervical spine WO contrast * Tony De Jesus MD: VERIFY, VERIFY Event Display: Report EXAM DESCRIPTION: CT Spine Cervical w/o Contrast 04/13/2022 INDICATION: TRAUMA TECHNIQUE: All CT scans at this facility use at least one of these dose optimization techniques: Automated exposure control; mA and/or kV adjustment per patient size (includes targeted exams where dose is matched to clinical indication); or iterative reconstruction. CT examination of the cervical spine with thin section axial images including sagittal and coronal MPR images performed on a separate workstation under concurrent supervision. COMPARISON: None FINDINGS: No acute fracture or subluxation. Prevertebral soft tissues are within normal limits. Spondylotic changes at C5-6 with intervertebral disc space narrowing and mild endplate osteophyte formation. Remaining intervertebral disc spaces are well maintained. No focal lytic or sclerotic lesion. Visualized lung apices are clear. Paraspinal soft tissues are unremarkable. IMPRESSION: No acute fracture or subluxation. JOB #: [id number] Final Signed by: Tony De Jesus MD Signed (Electronic Signature): 04/13/2022 3:17 pm
--- OUTSIDE RECORDS SUMMARY | 2024-02-09 00:40 | XMS_ITS | Referral Summary ---
Author Organization [facility] Address [address] [place] [address] Care Team Providers Care Stabber Name Role Phone Unknown, Provider Primary Care Provider Encounters Date Type Department Care Team Description 01/17/2024 Lab Requisition [facility] Pathology & Laboratory Medicine - [facility] [address] [place] [address] Outr Resulting Lab, Provider from Last 3 Months Social History Tobacco Use Types Packs/Day Years Used Date Smoking Tobacco: Never Assessed Interpersonal Safety Answer Date Record ed Physically Hurt Never 06/02/2020 Verbally Threaten Not on file 06/02/2020 Sex and Gender Information Value Date Recorded Sex Assigned at Not on file Gender Identity Not on file Sexual Orientation Not on file Plan of Treatment Not on file Procedures Procedure Name Priority Date/Time Associated Diagnosis Comments HOLD SST Today 01/17/2024 10:40 EDT T3 FREE Today 01/17/2024 10:40 EDT THYROPEROXIDASE ANTIBODY Today 01/17/2024 10:40 EDT CELIAC DISEASE PANEL Today 01/17/2024 10:40 EDT from Last 3 Months Results * CELIAC DISEASE PANEL (01/17/2024 10:40 EDT) Tissue Transglutaminase Antibody, IgA <4.0 <20.0 CU 01/23/2024 12:24 EDT [facility] Comment: A negative result may be due to IgA deficiency and does not rule out celiac disease. Negative: <20.0 CU Weak Positive: 20.0-30.0 CU Positive: >30.0 CU Results were obtained with the NightOwlA Flash h-tTG IgA chemiluminescent immunoassay. Values obtained with different manufacturers' assay methods may not be used interchangeably. IgA 95 85 - 499 mg/dL 01/23/2024 12:24 EDT [facility] Celiac Disease Interpretation Negative Serology. Celiac disease unlikely. Approximately 10% of patients with celiac disease are seronegative. Patients who are already adhering to a gluten-free diet may also be seronegative. If celiac disease is highly clinically suspected, referral to gastroenterology for additional evaluation is recommended. 01/23/2024 12:24 EDT [facility] Blood VENOUS BLOOD / Unknown 01/17/2024 10:40 EDT 01/17/2024 21:58 EDT Provider Outr Resulting Lab IMMUNOLOGY A ND SEROLOGY ORDERABLES Performing Organization Address [facility]/ZIP Co de Phone Number [facility] [address] [place] [address] * HOLD SST (01/17/2024 10:40 EDT) Hold Hold 01/17/2024 23:01 EDT [facility] Blood VENOUS BLOOD / Unknown 01/17/2024 10:40 EDT 01/17/2024 21:59 EDT Provider Outr Resulting Lab LAB INFO SER VICE AND SUPPORT & PHONE RESULT Performing Organization Address [facility]/ZIP Co de Phone Number [facility] [address] [place] [address] * THYROPEROXIDASE ANTIBODY (01/17/2024 10:40 EDT) Thyroperoxidase Ab <28 <=60 U/mL 2023 8:34 EDT [facility] Blood VENOUS BLOOD / Unknown 01/17/2024 10:40 EDT 01/17/2024 21:58 EDT Provider Outr Resulting Lab CHEMISTRY & BLOOD GAS ORDERABLES Performing Organization Address [facility]/ZIP Co de Phone Number [facility] [address] [place] [address] * T3 FREE (01/17/2024 10:40 EDT) T3, Free 4.3 2.8 - 5.3 pg/mL 01/17/2024 22:47 EDT [facility] Blood VENOUS BLOOD / Unknown 01/17/2024 10:40 EDT 01/17/2024 21:58 EDT Provider Outr Resulting Lab CHEMISTRY & BLOOD GAS ORDERABLES [facility] [address] [place] [address] from Last 3 Months Care Teams Stabber Relationship Specialty Start Date End Date Unknown, Provider, PCP - General 08/10/21
--- OUTSIDE RECORDS SUMMARY | 2024-02-09 00:40 | XMS_ITS | Encounter Summary ---
Author Organization [facility] Address [address] [place] [address] Care Team Providers Care Sheep Farm Worker Name Role Phone Unknown, Provider Primary Care Provider [phone] Encounter Details Date Type Department Care Team (Late st Contact Info) Description 11/09/2022 Lab Requisition [facility] Pathology & Laboratory Medicine - [facility] [address] [place] [address] Caryl Lee MD [address] [place] [address],[address] [place], [place] [id number] Encounter for other general examination Social History Tobacco Use Types Packs/Day Years Used Date Smoking Tobacco: Never Assessed Interpersonal Safety Answer Date Record ed Physically Hurt Never 06/02/2020 Verbally Threaten Not on file 06/02/2020 Sex and Gender Information Value Date Recorded Sex Assigned at Not on file Gender Identity Not on file Sexual Orientation Not on file documented as of this encounter Plan of Treatment Not on file documented as of this encounter Procedures Procedure Name Priority Date/Time Associated Diagnosis Comments PAP TEST Today 11/08/2022 11:40 EDT Encounter for other general examination HPV DNA DETECTION WITH GENOTYPING, PCR Today 11/08/2022 11:40 EDT Encounter for other general examination documented in this encounter Results * HUMAN PAPILLOMAVIRUS (HPV) DETECTION-HIGH RISK TYPES (11/08/2022 11:40 EDT) HPV other High Risk types, PCR Negative Negative 11/18/2022 15:15 EDT [facility] Comment:No E6 or E7 mRNA is detected from HPV types 16,18,31,33,35,39,45,51,52,56,58,59,66, and 68 by roll cutter mediated amplification. Papanicolaou smear specimen (specimen) CERVIX UTERI STRUCTURE / Unknown 11/08/2022 11:40 EDT 11/16/2022 12:37 EDT Caryl Lee MD MICROBIOLOGY - GENER AL ORDERABLES [facility] [address] [place] [address] * PAP TEST (11/08/2022 11:40 EDT) Specimens A. Cervix and/or Endocervix , ThinPrep Imaging System with Manual Evaluation 11/18/2022 15:15 [facility] Specimen Adequacy Satisfactory for Evaluation - transformation zone component present 11/18/2022 15:15 [facility] General Categorization Epithelial Cell Abnormality 11/18/2022 15:15 [facility] Descriptive Diagnosis Squamous Cell Abnormality - Atypical squamous cells, undetermined significance (ASC-US). 11/18/2022 15:15 [facility] Educational Comments [facility] recommends following the ASCCP's management guidelines which may be found at www.asccp.org 11/18/2022 15:15 [facility] Attestation By the signature below, the attending physician certifies that they have personally conducted a gross and/or microscopic examination of the described specimens and rendered or confirmed the above diagnosis. 11/18/2022 15:15 [facility] at 1515 Clinical History SEE BELOW 11/19/19 23 15:15 [facility] HPV The result for the Human Papillomavirus (HPV) Detection-High Risk Types is Negative. No E6 or E7 mRNA is detected from HPV types 16,18,31,33,35,3 9,45,51,52,56,58 ,59,66, and 68 by roll cutter mediated amplification.Te sting was performed on specimen [id number] and was resulted on 11/18/2022 1515 EDT by MERT, LAB INSTRUMENT RESULTS IN 11/18/2022 15:15 EDT [facility] Performing Lab [facility] 11/18/2022 15:15 EDT [facility] Scanned Images 11/18/2022 15:15 EDT [facility] Papanicolaou smear specimen (specimen) CERVIX UTERI STRUCTURE / Unknown 11/08/2022 11:40 EDT 11/09/2022 13:07 EDT Caryl Lee MD PATHOLOGY ORDERABLES [facility] [address] [place] [address] documented in this encounter Visit Diagnoses Diagnosis Encounter for other general examination documented in this encounter Care Teams Sheep Farm Worker Relationship Specialty Start Date End Date Unknown, Provider, PCP - General 08/10/21 documented as of this encounter
--- OUTSIDE RECORDS SUMMARY | 2024-02-09 00:40 | XMS_ITS | Encounter Summary ---
Author Organization [facility] Address [address] [place] [address] Care Team Providers Care Tank Cooper Name Role Phone Unknown, Provider Primary Care Provider Encounter Details Date Type Department Care Team (Late st Contact Info) Description 01/21/2022 Lab Requisition [facility] Pathology & Laboratory Medicine - [facility] [address] [place] [address] Outr Resulting Lab, Provider Social History Tobacco Use Types Packs/Day Years [...] Procedure Name Priority Date/Time Associated Diagnosis Comments ANTI NUCLEAR AB (MARYCARMEN), IFA Routine 01/20/2022 15:00 EDT T3 FREE Routine 01/20/2022 15:00 EDT documented in this encounter Results * T3 FREE (01/20/2022 15:00 EDT) T3, Free 3.8 2.8 - 5.3 pg/mL 01/21/2022 17:08 EDT [facility] Blood VENOUS BLOOD / Unknown 01/20/2022 15:00 EDT 01/21/2022 16:35 EDT Provider Outr Resulting Lab CHEMISTRY & BLOOD GAS ORDERABLES [facility] [address] [place] [address] * ANTI NUCLEAR AB (MARYCARMEN), IFA (01/20/2022 15:00 EDT) MARYCARMEN Interpretation Negative Negative 2021 15:24 EDT [facility] Comment:No titer performed, MARYCARMEN Screen is negative. Blood VENOUS BLOOD / Unknown 01/20/2022 15:00 EDT 01/21/2022 16:35 EDT Narrative [facility] - 01/24/2022 15:24 EDT Results were obtained with the INOVA NOVA Lite HEp-2 MARYCARMEN Kit by indirect immunofluorescence. Provider Outr Resulting Lab IMMUNOLOGY A ND SEROLOGY ORDERABLES Performing Organization Address City/State/[facility] Co de Phone Number [facility] [address] [place] [address] documented in this encounter Visit Diagnoses Not on filedocumented in this encounter Care Teams Tank Cooper Relationship Specialty Start Date End Date Unknown, Provider, PCP - General 08/10/21 documented as of this encounter
--- OUTSIDE RECORDS SUMMARY | 2024-02-09 00:40 | XMS_ITS | Clinical Summary ---
Author Organization [facility] Address [address] [place] [address] Care Team Providers Care Perfect Binder Setter Name Role Phone Unknown, Provider Primary Care Provider Encounters Date Type Department Care Team Description 01/17/2024 Lab Requisition [facility] Pathology & Laboratory Medicine - [address] [address] Outr Resulting Lab, Provider from Last 3 Months Social History Tobacco Use Types Packs/Day Years Used Date Smoking Tobacco: Never Assessed Interpersonal Safety Answer Date Record ed Physically Hurt Never 06/02/2020 Verbally Threaten Not on file 06/02/2020 Sex and Gender Information Value Date Recorded Sex Assigned at Not on file Gender Identity Not on file Sexual Orientation Not on file Plan of Treatment Health Maintenance Due Date Last Done Comments Hepatitis C Screen 1965 Hepatitis B Vaccine (1 of 3 - 19+ 3-dose series) 05/05 COVID-19 Vaccine ( season) 2023 Procedures Procedure Name Priority Date/Time Associated Diagnosis Comments HOLD SST Today 01/17/2024 10:40 EDT T3 FREE Today 01/17/2024 10:40 EDT THYROPEROXIDASE ANTIBODY Today 01/17/2024 10:40 EDT CELIAC DISEASE PANEL Today 01/17/2024 10:40 EDT from Last 3 Months Results * CELIAC DISEASE PANEL (01/17/2024 10:40 EDT) Tissue Transglutaminase Antibody, IgA <4.0 <20.0 CU 01/23/2024 12:24 EDT [facility] Comment: A negative result may be due to IgA deficiency and does not rule out celiac disease. Negative: <20.0 CU Weak Positive: 20.0-30.0 CU Positive: >30.0 CU Results were obtained with the RecyclebankA Flash h-tTG IgA chemiluminescent immunoassay. Values obtained with different manufacturers' assay methods may not be used interchangeably. IgA 95 85 - 499 mg/dL 01/23/2024 12:24 EDT [facility] Celiac Disease Interpretation Negative Serology. Celiac disease unlikely. Approximately 10% of patients with celiac disease are seronegative. Patients who are already adhering to a gluten-free diet may also be seronegative. If celiac disease is highly clinically suspected, referral to gastroenterology for additional evaluation is recommended. 01/23/2024 12:24 EDT [facility] Blood VENOUS BLOOD / Unknown 01/17/2024 10:40 EDT 01/17/2024 21:58 EDT Provider Outr Resulting Lab IMMUNOLOGY A ND SEROLOGY ORDERABLES Performing Organization Address City/[facility]/ZIP Co de Phone Number [facility] [address] [place] [address] * HOLD SST (01/17/2024 10:40 EDT) Hold Hold 01/17/2024 23:01 EDT [facility] Blood VENOUS BLOOD / Unknown 01/17/2024 10:40 EDT 01/17/2024 21:59 EDT Provider Outr Resulting Lab LAB INFO SER VICE AND SUPPORT & PHONE RESULT Performing Organization Address [facility] Co de Phone Number [facility] [address] [place], [place] [id number] * THYROPEROXIDASE ANTIBODY (01/17/2024 10:40 EDT) Thyroperoxidase Ab <28 <=60 U/mL 2023 8:34 EDT [facility] Blood VENOUS BLOOD / Unknown 01/17/2024 10:40 EDT 01/17/2024 21:58 EDT Provider Outr Resulting Lab CHEMISTRY & BLOOD GAS ORDERABLES Performing Organization Address City/[facility]/ZIP Co de Phone Number [facility] [address] [place] [address] * T3 FREE (01/17/2024 10:40 EDT) T3, Free 4.3 2.8 - 5.3 pg/mL 01/17/2024 22:47 EDT [facility] Blood VENOUS BLOOD / Unknown 01/17/2024 10:40 EDT 01/17/2024 21:58 EDT Provider Outr Resulting Lab CHEMISTRY & BLOOD GAS ORDERABLES Performing Organization Address [facility]/ZIP Co de Phone Number [facility] [address] [place], [place] [phone] from Last 3 Months Care Teams Perfect Binder Setter Relationship Specialty Start Date End Date Unknown, Provider, PCP - General 08/10/21
--- OUTSIDE RECORDS SUMMARY | 2024-02-09 00:40 | XMS_ITS | Encounter Summary ---
Author Organization [facility] Address [address] [place] [address] Care Team Providers Care International Tax Manager Name Role Phone Unknown, Provider Primary Care Provider Encounter Details Date Type Department Care Team (Late st Contact Info) Description 07/25/[address] [facility] Pathology & Laboratory Medicine - [address] [address] Outr Resulting Lab, Provider Social History Tobacco [...] Comments ANTI NUCLEAR AB (MARYCARMEN), IFA Routine 07/25/2022 15:30 EST T3 FREE Routine 07/25/2022 15:30 EST documented in this encounter Results * T3 FREE (07/25/2022 15:30 EST) T3, Free 4.4 2.8 - 5.3 pg/mL 07/26/2022 18:33 EST [facility] Blood VENOUS BLOOD / Unknown 07/25/2022 15:30 EST 07/26/2022 17:11 EST Provider Outr Resulting Lab CHEMISTRY & BLOOD GAS ORDERABLES [facility] [address] [place] [address] * ANTI NUCLEAR AB (MARYCARMEN), IFA (07/25/2022 15:30 EST) MARYCARMEN Interpretation Negative Negative 2022 13:55 EST [facility] Comment:No titer performed, MARYCARMEN Screen is negative. Blood VENOUS BLOOD / Unknown 07/25/2022 15:30 EST 07/26/2022 17:11 EST Narrative [facility] - 07/27/2022 13:55 EST Results were obtained with the INOVA NOVA Lite HEp-2 MARYCARMEN Kit by indirect immunofluorescence. Provider Outr Resulting Lab IMMUNOLOGY A ND SEROLOGY ORDERABLES [facility] [address] [place] [address] documented in this encounter Visit Diagnoses Not on filedocumented in this encounter Care Teams International Tax Manager Relationship Specialty Start Date End Date Unknown, Provider, PCP - General 08/10/21 documented as of this encounter
--- OUTSIDE RECORDS SUMMARY | 2024-02-09 00:40 | XMS_ITS | Encounter Summary ---
Author Organization [facility] Address [address] [place] [address] Care Team Providers Care Cooler Tender Name Role Phone Unknown, Provider Primary Care Provider [phone] Encounter Details Date Type Department Care Team (Late st Contact Info) Description 01/17/2024 Lab Requisition [facility] Pathology & Laboratory Medicine - [facility] [address] [place] [address] Outr Resulting Lab, Provider Social History Tobacco [...] Procedure Name Priority Date/Time Associated Diagnosis Comments CELIAC DISEASE PANEL Today 01/17/2024 10:40 EDT HOLD SST Today 01/17/2024 10:40 EDT THYROPEROXIDASE ANTIBODY Today 01/17/2024 10:40 EDT T3 FREE Today 01/17/2024 10:40 EDT documented in this encounter Results * HOLD SST (01/17/2024 10:40 EDT) Hold Hold 01/17/2024 23:01 EDT [facility] Blood VENOUS BLOOD / Unknown 01/17/2024 10:40 EDT 01/17/2024 21:59 EDT Provider Outr Resulting Lab LAB INFO SER VICE AND SUPPORT & PHONE RESULT Performing Organization Address [facility]/ZIP Co de Phone Number [facility] [address] [place] [address] * T3 FREE (01/17/2024 10:40 EDT) T3, Free 4.3 2.8 - 5.3 pg/mL 01/17/2024 22:47 EDT [facility] Blood VENOUS BLOOD / Unknown 01/17/2024 10:40 EDT 01/17/2024 21:58 EDT Provider Outr Resulting Lab CHEMISTRY & BLOOD GAS ORDERABLES Performing Organization Address [facility] Co de Phone Number [facility] [address] [place] [address] * THYROPEROXIDASE ANTIBODY (01/17/2024 10:40 EDT) Thyroperoxidase Ab <28 <=60 U/mL 2023 8:34 EDT [facility] Blood VENOUS BLOOD / Unknown 01/17/2024 10:40 EDT 01/17/2024 21:58 EDT Provider Outr Resulting Lab CHEMISTRY & BLOOD GAS ORDERABLES Performing Organization Address [facility] Co de Phone Number [facility] [address] [place] [address] * CELIAC DISEASE PANEL (01/17/2024 10:40 EDT) Tissue Transglutaminase Antibody, IgA <4.0 <20.0 CU 01/23/2024 12:24 EDT [facility] Comment: A negative result may be due to IgA deficiency and does not rule out celiac disease. Negative: <20.0 CU Weak Positive: 20.0-30.0 CU Positive: >30.0 CU Results were obtained with the RoomtagA Flash h-tTG IgA chemiluminescent immunoassay. Values obtained with different manufacturers' assay methods may not be used interchangeably. IgA 95 85 - 499 mg/dL 01/23/2024 12:24 EDT [facility] Celiac Disease Interpretation Negative Serology. Celiac disease unlikely. Approximately 10% of patients with celiac disease are seronegative. Patients who are already adhering to a gluten-free diet may also be seronegative. If celiac disease is highly clinically suspected, referral to gastroenterology for additional evaluation is recommended. 01/23/2024 12:24 EDT [facility] Blood VENOUS BLOOD / Unknown 01/17/2024 10:40 EDT 01/17/2024 21:58 EDT Provider Outr Resulting Lab IMMUNOLOGY A ND SEROLOGY ORDERABLES [facility] [address] [place] [address] documented in this encounter Visit Diagnoses Not on filedocumented in this encounter Care Teams Cooler Tender Relationship Specialty Start Date End Date Unknown, Provider, PCP - General 08/10/21 documented as of this encounter
--- OUTSIDE RECORDS SUMMARY | 2024-02-09 00:41 | XMS_ITS | Encounter Summary ---
Author Organization [facility] Address [address] [place] [address] Care Team Providers Care Development Administrator Name Role Phone Unknown, Provider Primary Care Provider Encounter Details Date Type Department Care Team (Late st Contact Info) Description 07/29/2021 Lab Requisition [facility] Pathology & Laboratory Medicine - [facility] [address] [place] [address] Outr Resulting Lab, Provider Social History Tobacco [...] Procedure Name Priority Date/Time Associated Diagnosis Comments DOUBLE STRANDED DNA ANTIBODY, IGG Today 07/28/2021 14:05 EST ANTI NUCLEAR AB (MARYCARMEN), IFA Today 07/28/2021 14:05 EST documented in this encounter Results * ANTI DNA (DOUBLE STRANDED) (07/28/2021 14:05 EST) Anti-DNA (Double Stranded) <12.3 <30.0 IU/mL 08/05/2021 14:[address] [facility] Comment: ? Negative: ??<30.0 IU/mL ? Borderline Positive: ??30.0 - 75.0 IU/mL ? Positive: ??>75.0 IU/mL Results were obtained with the INOVA QUANTA Lite dsDNA SC HILDA assay on the [employer] Diamond DSX. Blood VENOUS BLOOD / Unknown 07/28/2021 14:05 EST 07/29/2021 16:46 EST Provider Outr Resulting Lab IMMUNOLOGY A ND SEROLOGY ORDERABLES Performing Organization Address [facility] Co de Phone Number [facility] [address] [place] [address] * (ABNORMAL) ANTI NUCLEAR AB (MARYCARMEN), IFA (07/28/2021 14:05 EST) MARYCARMEN Interpretation Positive(A) Negative 07/30/2021 14:[address] [facility] Comment: For titers greater than or equal to 1:160 (except the centromere and nucleolar patterns) it is recommended that specific follow-up autoantibody testing ??(such as for dsDNA and Extractable Nuclear Antigens) be performed on all diffuse and/or speckled patterns NOTE: For add-on testing dsDNA is stable for 7 days refrigerated while Extractable Nuclear Antigens are only stable for 48 hours refrigerated. MARYCARMEN Titer and Pattern 1 1:160 Homogeneous 07/30/2021 14:[address] [facility] Blood VENOUS BLOOD / Unknown 07/28/2021 14:05 EST 07/29/2021 16:[address] [facility] - 07/30/2021 14:24 EST Results were obtained with the INOVA NOVA Lite HEp-2 MARYCARMEN Kit by indirect immunofluorescence. Provider Outr Resulting Lab IMMUNOLOGY A ND SEROLOGY ORDERABLES Performing Organization Address City/[facility]/ZIP Co de Phone Number [facility] [address] [place] [address] documented in this encounter Visit Diagnoses Not on filedocumented in this encounter Care Teams Development Administrator Relationship Specialty Start Date End Date Unknown, Provider, PCP - General 08/10/21 documented as of this encounter
--- OUTSIDE RECORDS SUMMARY | 2024-02-09 00:41 | XMS_ITS | Encounter Summary ---
Author Organization [facility] Address [address] [place] [address] Care Team Providers Care Gore Inserter Name Role Phone Unknown, Provider Primary Care Provider [phone] Encounter Details Date Type Department Care Team (Late st Contact Info) Description 06/19/2020 Lab Requisition [facility] Pathology & Laboratory Medicine - [facility] [address] [place] [address] Outr Resulting Lab, Provider Social History Tobacco [...] Procedure Name Priority Date/Time Associated Diagnosis Comments CHLAMYDIA/N. GONORRHOEAE AMPLIFIED NUCLEIC ACID, THINPREP Routine 06/18/2020 16:30 EST documented in this encounter Results * CHLAMYDIA/N. GONORRHOEAE AMPLIFIED RNA, THINPREP (06/18/2020 16:30 EST) Neisseria gonorrhoeae Result Negative Negative 06/22/2020 14:09 EST [facility] Chlamydia trachomatis Result Negative Negative 06/22/2020 14:09 EST [facility] Papanicolaou smear specimen (specimen) CERVIX UTERI STRUCTURE / Unknown 06/18/2020 16:30 EST 06/22/2020 8:01 EST Provider Outr Resulting Lab MICROBIOLOGY - GENERAL ORDERABLES [facility] [address] [place] [address] documented in this encounter Visit Diagnoses Not on filedocumented in this encounter Additional Health Concerns Infection Onset Date Last Indicated Resolved Time COVID-19 07/07/2021 07/07/2021 07/27/2021 22:1 5 EST documented as of this encounter Care Teams Gore Inserter Relationship Specialty Start Date End Date Unknown, Provider, PCP - General 08/10/21 documented as of this encounter
--- OUTSIDE RECORDS SUMMARY | 2024-02-09 00:41 | XMS_ITS | Encounter Summary ---
Author Organization [facility] Address [address] [place] [address] Care Team Providers Care Project Director Name Role Phone Unknown, Provider Primary Care Provider Encounter Details Date Type Department Care Team (Late st Contact Info) Description 02/28/2020 Lab Requisition [facility] Pathology & Laboratory Medicine - [facility] [address] [place] [address] Outr Resulting Lab, Provider Social History Tobacco Use Types Packs/Day Years Used Date Smoking Tobacco: Never Assessed Sex and Gender Information Value Date Recorded Sex Assigned at Not on file Gender Identity Not on file Sexual Orientation Not on file documented as of this encounter Plan of Treatment Not on file documented as of this encounter Procedures Procedure Name Priority Date/Time Associated Diagnosis Comments DO NOT ORDER STANDALONE - BROAD COVID TEST Today 02/28/2020 10:49 EDT COVID-19 TESTING Routine 02/28/2020 10:4 9 EDT documented in this encounter Results * DO NOT ORDER STANDALONE - BROAD COVID TEST (02/28/2020 10:49 EDT) COVID-19 rt-PCR Result NEGATIVE Negative 02/29/2020 13:09 EDT [facility] Comment: 2019-novel Coronavirus (2019-nCoV) not detected by the qRT-PCR assay. Consider testing for other respiratory viruses or re-collecting for 2019-nCoV testing. Note: Optimum timing for peak viral levels during infections caused by 2019-nCoV have not been determined. Collection of multiple specimens from the same patient may be necessary to detect the virus. Limitations Positive results are indicative of active infection with SARS-CoV-2 but do not rule out bacterial infection or co-infection with other viruses. The agent detected may not be the definite cause of disease. In addition, detection of viral RNA may not indicate the presence of infectious virus or that SARS-CoV-2 is the causative agent for clinical symptoms. Negative results do not preclude SARS-CoV-2 infection and should not be used as the sole basis for patient management decisions. Negative results must be combined with clinical observations, patient history, and epidemiological information. False negative results may also occur if amplification inhibitors are present in the specimen or if inadequate numbers of organisms are present in the specimen. Optimum specimen types and timing for peak viral levels during infections caused by SARS-CoV-2 have not been fully determined. Collection of multiple specimens (types and time points) from the same patient may be necessary to detect the virus. The test was validated for use with upper respiratory specimens obtained via nasopharyngeal or oropharyngeal swabs in VTM, UTM, M4, M5, M6, saline, and MTM media. The performance of this test has not been established for other specimens. Specimens collected using other FDA recommended Specimen Collection Materials listed in the FDA COVID-19 [employer] communication (October 03, 2019) are processed with the caveat that they were not all validated for use with this test and the result must be interpreted in this context. Furthermore, a false negative results may occur if a specimen is improperly collected, transported or handled. If the virus mutates in the RT-PCR target region, SARS-CoV-2 may not be detected or may be detected less predictably. Inhibitors or other types of interference may produce a false negative result. An interference study evaluating the effect of common cold medications was not performed. This test is not FDA-cleared but its performance characteristics were established by our CLIA-certified, CAP-accredited, high complexity laboratory in accordance with CLIA regulations, [employer] [place] [employer] (CAP) guidelines (Sep 26, 2019), and FDA guidance (Sep 07, 2019). This test is only for use under the Food and Drug Administration's Emergency Use Authorization. Swab ENTIRE NASOPHARYNX / Unknown 02/28/2020 10:49 EDT 02/28/2020 15:27 EDT Provider Outr Resulting Lab MICROBIOLOGY - GENERAL ORDERABLES [facility] [place] * COVID-19 TESTING (02/28/2020 10:49 EDT) Pathologist [facility] COVID-19 rt-PCR Result NEGATIVE Negative 02/29/2020 14:34 EDT [facility] Comment: 2019-novel Coronavirus (2019-nCoV) not detected by the qRT-PCR assay. Consider testing for other respiratory viruses or re-collecting for 2019-nCoV testing. Note: Optimum timing for peak viral levels during infections caused by 2019-nCoV have not been determined. Collection of multiple specimens from the same patient may be necessary to detect the virus. Limitations Positive results are indicative of active infection with SARS-CoV-2 but do not rule out bacterial infection or co-infection with other viruses. The agent detected may not be the definite cause of disease. In addition, detection of viral RNA may not indicate the presence of infectious virus or that SARS-CoV-2 is the causative agent for clinical symptoms. Negative results do not preclude SARS-CoV-2 infection and should not be used as the sole basis for patient management decisions. Negative results must be combined with clinical observations, patient history, and epidemiological information. False negative results may also occur if amplification inhibitors are present in the specimen or if inadequate numbers of organisms are present in the specimen. Optimum specimen types and timing for peak viral levels during infections caused by SARS-CoV-2 have not been fully determined. Collection of multiple specimens (types and time points) from the same patient may be necessary to detect the virus. The test was validated for use with upper respiratory specimens obtained via nasopharyngeal or oropharyngeal swabs in VTM, UTM, M4, M5, M6, saline, and MTM media. The performance of this test has not been established for other specimens. Specimens collected using other FDA recommended Specimen Collection Materials listed in the FDA COVID-19 [employer] communication (October 03, 2019) are processed with the caveat that they were not all validated for use with this test and the result must be interpreted in this context. Furthermore, a false negative results may occur if a specimen is improperly collected, transported or handled. If the virus mutates in the RT-PCR target region, SARS-CoV-2 may not be detected or may be detected less predictably. Inhibitors or other types of interference may produce a false negative result. An interference study evaluating the effect of common cold medications was not performed. This test is not FDA-cleared but its performance characteristics were established by our CLIA-certified, CAP-accredited, high complexity laboratory in accordance with CLIA regulations, [employer] [place] [employer] (CAP) guidelines (Sep 26, 2019), and FDA guidance (Sep 07, 2019). This test is only for use under the Food and Drug Administration's Emergency Use Authorization. Performing Lab [facility] 02/29/2020 14:34 EDT [facility] Swab 02/28/2020 10:4 9 EDT 02/28/2020 15:27 EDT Provider Outr Resulting Lab MICROBIOLOGY - GENERAL ORDERABLES [facility] [address] [place], [place] [id number] [place] [address] LABORATORY [place], [place] documented in this encounter Visit Diagnoses Not on filedocumented in this encounter Additional Health Concerns Infection Onset Date Last Indicated Resolved Time COVID-19 07/07/2021 07/07/2021 07/27/2021 22:1 5 EST documented as of this encounter Care Teams Project Director Relationship Specialty Start Date End Date Unknown, Provider, PCP - General 08/10/21 documented as of this encounter
--- OUTSIDE RECORDS SUMMARY | 2024-02-09 00:41 | XMS_ITS | Encounter Summary ---
Author Organization [facility] [place] [address] Care Team Providers Care Stenographer Secretary Name Role Phone Unavailable Primary Care Provider Unavailabl e Reason for Visit * (Routine) - Closed Specialty Diagnoses / Procedures Referred By Contac t Referred To Contact Radiology Diagnoses Calcification of basal ganglia Procedures Request For 2nd Read CT Head And Spine Maria Del Rosario Kapadia APRN [address] [place] [id number] Referral ID Status Reason Start Date Expiration Date Visits Re quested Visits Authorized [id number] Closed 05/31/2022 05/31/2023 1 1 Encounter Details Date Type Department Care Team (Latest Contact Info) Description 05/31/2022 4:35 PM EST Ancillary Procedure [place] [address] Maria Del Rosario Kapadia APRN [address] [place] [id number] Calcification of basal ganglia Social History Tobacco Use Types Packs/Day Years Used Date Smoking Tobacco: Never Assessed Sex and Gender Information Value Date Recorded Sex Assigned at Not on file Gender Identity Not on file Sexual Orientation Not on file documented as of this encounter Plan of Treatment Not on file documented as of this encounter Procedures Procedure Name Priority Date/Time Associated Diagnosis Comments REQUEST FOR 2ND READ CT HEAD AND SPINE Routine 05/31/2022 4:34 PM EST Calcification of basal ganglia documented in this encounter Results * Request For 2nd Read CT Head And Spine (05/31/2022 4:34 PM EST) Anatomical Region Laterality Modality Head, C-spine, T-spine, L-spine SO Impressions 05/31/2022 5:01 PM EST 1. No intracranial hemorrhage or calvarial fracture. 2. No acute cervical spine fracture. 3. Small areas of mineralization of the globus pallidus is a very common benign finding. This degree of calcification does not imply metabolic disease or Fahr's disease. Thank you for letting us participate in the care of this patient. ??If you are a health care provider and have any questions regarding this report, please contact the number below. ??For patients who have questions please contact the health director long term care that requested your imaging first. ? Electronically signed by: David Vázquez MD, [facility] ([phone]), at 05/31/2022 5:01 PM Narrative 05/31/2022 5:01 PM EST EXAMINATION: REQUEST FOR 2ND READ CT HEAD AND SPINE CLINICAL HISTORY: BASAL GANGLIA CALCIFICATION, DOES THIS LOOK LIKE FAHR DISEASE? METABOLIC? OR INHERITED?; Sending Institution [facility]; Date of exam [id number]; I believe a reinterpretation of this exam may alter care of Patient. Yes TECHNIQUE: CT of the head and cervical spine performed at [facility] without the use of intravenous contrast. COMPARISON: None FINDINGS: CT HEAD: The ventricles are normal in size and contour. There is no intracranial hemorrhage or extra-axial collection. No intracranial mass, mass effect, or shift. There is a small amount of mineralization of the globus pallidus, a very common benign finding. There is no osseous abnormality. Cervical spine: Overall cervical alignment is unremarkable. There is no cervical spine fracture. There are mild changes of cervical spondylosis most process C5-C6 with uncovertebral arthropathy causing moderate right foraminal narrowing. Procedure Note David Vázquez MD - 05/31/2022 EXAMINATION: REQUEST FOR 2ND READ CT HEAD AND SPINE CLINICAL HISTORY: BASAL GANGLIA CALCIFICATION, DOES THIS LOOK LIKE FAHRDISEASE? METABOLIC? OR INHERITED?; Sending Institution [facility];Date of exam [id number]; I believe a reinterpretation of this exam may alter careof Patient. Yes TECHNIQUE: CT of the head and cervical spine performed at [facility] the use of intravenous contrast. COMPARISON: None FINDINGS: CT HEAD: The ventricles are normal in size and contour. There is nointracranial hemorrhage or extra-axial collection. No intracranial mass, mass effect,or shift. There is a small amount of mineralization of the globus pallidus, daron common benign finding. There is no osseous abnormality. Cervical spine: Overall cervical alignment is unremarkable. There is nocervical spine fracture. There are mild changes of cervical spondylosis mostprocess C5-C6 with uncovertebral arthropathy causing moderate right foraminalnarrowing. IMPRESSION 1. No intracranial hemorrhage or calvarial fracture. 2. No acute cervical spine fracture. 3. Small areas of mineralization of the globus pallidus is a very commonbenign finding. This degree of calcification does not imply metabolic disease orFahr's disease. Thank you for letting us participate in the care of this patient. If youare a health care provider and have any questions regarding this report,please contact the number below. For patients who have questions please contactthe health director long term care that requested your imaging first. Electronically signed by: David Vázquez MD, [facility]([phone]), at 05/31/2022 5:01 PM Maria Del Rosario Kapadia APRN IMG OUTSIDE INTER PRETATION ORDERABLES documented in this encounter Visit Diagnoses Diagnosis Calcification of basal ganglia documented in this encounter
--- OUTSIDE RECORDS SUMMARY | 2024-02-09 00:41 | XMS_ITS | Encounter Summary ---
Author Organization [facility] Address [address] [place] [address] Care Team Providers Care Pen Or Pencil Assembly Machine Operator Name Role Phone Unknown, Provider Primary Care Provider Encounter Details Date Type Department Care Team (Late st Contact Info) Description 11/21/2019 Lab Requisition [facility] Pathology & Laboratory Medicine - [facility] [address] [place] [address] Outr Resulting Lab, Provider Social History Tobacco [...] Date/Time Associated Diagnosis Comments HOLD SST Today 11/21/2019 10:31 EDT HOLD SST Today 11/21/2019 10:31 EDT THYROPEROXIDASE ANTIBODY Today 11/21/2019 10:31 EDT ANTI THYROGLOBULIN Today 11/21/2019 10 :31 EDT T3 FREE Today 11/21/2019 10:31 EDT HOMOCYSTEINE Today 11/21/2019 10:31 EDT documented in this encounter Results * HOLD SST (11/21/2019 10:31 EDT) Hold Hold 11/21/2019 17:16 EDT [facility] Blood VENOUS BLOOD / Unknown 11/21/2019 10:31 EDT 11/21/2019 16:08 EDT Provider Outr Resulting Lab LAB INFO SER VICE AND SUPPORT & PHONE RESULT [facility] [address] [place] [address] * HOLD SST (11/21/2019 10:31 EDT) Hold Hold 11/21/2019 17:16 EDT [facility] Blood VENOUS BLOOD / Unknown 11/21/2019 10:31 EDT 11/21/2019 16:08 EDT Provider Outr Resulting Lab LAB INFO SER VICE AND SUPPORT & PHONE RESULT Performing Organization Address City/[facility]/ZIP Co de Phone Number [facility] [address] [place] [id number] * T3 FREE (11/21/2019 10:31 EDT) T3, Free 4.3 2.8 - 5.3 pg/mL 11/21/2019 19:26 EDT [facility] Blood VENOUS BLOOD / Unknown 11/21/2019 10:31 EDT 11/21/2019 16:07 EDT Provider Outr Resulting Lab CHEMISTRY & BLOOD GAS ORDERABLES Performing Organization Address City/[facility]/ZIP Co de Phone Number [facility] [address] [place] [address] * THYROPEROXIDASE ANTIBODY (11/21/2019 10:31 EDT) Thyroperoxidase Ab <28 <=60 U/mL 2019 9:08 EDT [facility] Blood VENOUS BLOOD / Unknown 11/21/2019 10:31 EDT 11/21/2019 16:07 EDT Provider Outr Resulting Lab CHEMISTRY & BLOOD GAS ORDERABLES [facility] [address] [place] [address] * ANTI THYROGLOBULIN (11/21/2019 10:31 EDT) Anti-Thyroglob ulin <15 <=60 U/mL 11/22/2019 9:08 EDT [facility] Blood VENOUS BLOOD / Unknown 11/21/2019 10:31 EDT 11/21/2019 16:07 EDT Provider Outr Resulting Lab CHEMISTRY & BLOOD GAS ORDERABLES Performing Organization Address City/[facility] Co de Phone Number [facility] [address] [place] [address] * HOMOCYSTEINE (11/21/2019 10:31 EDT) Homocysteine 9.3 5.0 - 13.9 umol/L 11/22/2019 13:45 EDT [facility] Blood VENOUS BLOOD / Unknown 11/21/2019 10:31 EDT 11/21/2019 16:08 EDT Narrative [facility] - 11/22/2019 13:45 EDT Reference range may not apply to non-fasting samples. ??It is not recommended that EDTA plasma and serum from the same patient be used interchangeably. ??Serum concentrations have been observed to be up to 10% higher than EDTA plasma. Reference range may not apply to serum results. Provider Outr Resulting Lab CHEMISTRY & BLOOD GAS ORDERABLES Performing Organization Address [facility] Co de Phone Number [facility] [address] [place] [address] documented in this encounter Visit Diagnoses Not on filedocumented in this encounter Additional Health Concerns Infection Onset Date Last Indicated Resolved Time COVID-19 07/07/2021 07/07/2021 07/27/2021 22:1 5 EST documented as of this encounter Care Teams Pen Or Pencil Assembly Machine Operator Relationship Specialty Start Date End Date Unknown, Provider, PCP - General 08/10/21 documented as of this encounter
--- OUTSIDE RECORDS SUMMARY | 2024-02-09 00:41 | XMS_ITS | Clinical Summary ---
Author Organization [facility] [place] [address] Care Team Providers Care Heel Packer Name Role Phone Unavailable Primary Care Provider Unavailabl e Medications No known medications Active Problems No known active problems Social History Tobacco Use Types Packs/Day Years Used Date Smoking Tobacco: Never Assessed Sex and Gender Information Value Date Recorded Sex Assigned at Not on file Gender Identity Not on file Sexual Orientation Not on file Plan of Treatment Health Maintenance Due Date Last Done Comments CT Colonography 1965 Colonoscopy 1965 Colorectal Cancer Screening 1965 FIT DNA 1965 FIT 1965 Sigmoidoscopy (10 year) with FIT yearly 1965 Sigmoidoscopy 1965 HIV screen 1983 Hepatitis C Screening 1983 Hepatitis B vaccine (0-59 yrs) (1) 1984 Tdap adult 1984 Tetanus vaccine 1984 HPV test 1995 PAP Smear 1995 Breast Cancer Share Decision Needed 2005 Breast Cancer screening 2005 Zoster vaccine (1 of 2) 2015 Advance Directive 2020 Covid-19 Vaccine ( season) 2023 Influenza (Flu) vaccine (1 o f 1 - Influenza standard series) 03/10/2024
--- OUTSIDE RECORDS SUMMARY | 2024-02-09 00:41 | XMS_ITS | Encounter Summary ---
Author Organization [facility] Address [address] [facility] [place] [address] Care Team Providers Care Mercury Purifier Name Role Phone Unavailable Primary Care Provider Unavailabl e Encounter Details Date Type Department Care Team (Late st Contact Info) Description 04/13/2022 Ancillary Procedure [place] [id number] Maria Del Rosario Kapadia APRN [address] [place] [address] Social History Tobacco Use Types Packs/Day Years Used Date Smoking Tobacco: Never Assessed Sex and Gender Information Value Date Recorded Sex Assigned at Not on file Gender Identity Not on file Sexual Orientation Not on file documented as of this encounter Plan of Treatment Not on file documented as of this encounter Procedures Procedure Name Priority Date/Time Associated Diagnosis Comments FILM LIBRARY STORAGE ONLY CT HEAD AND SPINE Routine 04/13/2022 12:00 AM EDT documented in this encounter Results * Film Library- Storage Only CT Head And Spine (04/13/2022 12:00 AM EDT) Narrative [facility] - 05/31/2022 4:26 PM EST This exam is auto-finalizing. It's purpose is for storage only. Maria Del Rosario Kapadia APRN IMG FILM LIBRARY ORDERABLES [place], [place] documented in this encounter Visit Diagnoses Not on filedocumented in this encounter
--- OUTSIDE RECORDS SUMMARY | 2024-02-09 00:41 | XMS_ITS | Encounter Summary ---
Author Organization [facility] Address [address] [place] [address] Care Team Providers Care Frame Stripper And Crusher Name Role Phone Unknown, Provider Primary Care Provider [phone] Encounter Details Date Type Department Care Team (Latest Contact Info) Description 06/22/2020 Lab Requisition [facility] Pathology & Laboratory Medicine - [facility] [address] [place] [address] Heather Mcduffie FNP [address] [facility] [address] [place] [phone] Encounter for general adult medical examination without abnormal findings; Encounter for screening for malignant neoplasm of cervix; Encounter for gynecological examination (general) (routine) without abnormal findings Social History Tobacco Use Types Packs/Day Years [...] Date/Time Associated Diagnosis Comments PAP TEST Today 06/18/2020 16:30 EST Encounter for general adult medical examination without abnormal findings Encounter for screening for malignant neoplasm of cervix Encounter for gynecological examination (general) (routine) without abnormal findings HPV DNA DETECTION WITH GENOTYPING, PCR Today 06/18/2020 16:30 EST Encounter for general adult medical examination without abnormal findings Encounter for screening for malignant neoplasm of cervix Encounter for gynecological examination (general) (routine) without abnormal findings documented in this encounter Results * HUMAN PAPILLOMAVIRUS (HPV) DETECTION-HIGH RISK TYPES (06/18/2020 16:30 EST) HPV other High Risk types, PCR Negative Negative 06/29/2020 12:33 [facility] Comment:No E6 or E7 mRNA is detected from HPV types 16,18,31,33,35,39,45,51,52,56,58,59,66, and 68 by mark up designer mediated amplification. Papanicolaou smear specimen (specimen) CERVIX UTERI STRUCTURE / Unknown 06/18/2020 16:30 EST 06/26/2020 8:44 EST Heather Mcduffie BROADCAST SUPERVISOR MICROBIOLOGY - GENER AL ORDERABLES [facility] [address] [place] [address] * PAP TEST (06/18/2020 16:30 EST) Specimens A. Cervix and/or Endocervix , ThinPrep Imaging System with Manual Evaluation 06/29/2020 12:33 [facility] Specimen Adequacy Satisfactory for Evaluation - transformation zone component present 06/29/2020 12:33 [facility] General Categorization Negative for intraepithelial lesion or malignancy 06/29/2020 12:33 [facility] Attestation . 06/29/2020 12:33 [facility] at 1233 Clinical History See below 06/29/20 20 12:33 [facility] HPV The result for the Human Papillomavirus (HPV) Detection-High Risk Types is Negative. No E6 or E7 mRNA is detected from HPV types 16,18,31,33,35,39 ,45,51,52,56,58,5 9,66, and 68 by mark up designer mediated amplification.Ana ting was performed on specimen [id number] and was resulted on 06/29/2020 1232 EST by MERT, LAB INSTRUMENT RESULTS IN 06/29/2020 12:33 [facility] Performing Lab [facility] 06/29/2020 12:33 [facility] Scanned Images 06/29/2020 12:33 [facility] Papanicolaou smear specimen (specimen) CERVIX UTERI STRUCTURE / Unknown 06/18/2020 16:30 EST 06/22/2020 13:06 EST Heather HARVEY PATHOLOGY ORDERABLES [facility] [address] [place] [address] documented in this encounter Visit Diagnoses Diagnosis Encounter for general adult medical examination without abnormal findings Unspecified general medical examination Encounter for screening for malignant neoplasm of cervix Screening for malignant neoplasm of the cervix Encounter for gynecological examination (general) (routine) without abnormal findings documented in this encounter Additional Health Concerns Infection Onset Date Last Indicated Resolved Time COVID-19 07/07/2021 07/07/2021 07/27/2021 22:1 5 EST documented as of this encounter Care Teams Frame Stripper And Crusher Relationship Specialty Start Date End Date Unknown, Provider, PCP - General 08/10/21 documented as of this encounter
--- OUTSIDE RECORDS SUMMARY | 2024-02-09 00:41 | XMS_ITS | Encounter Summary ---
Author Organization [facility] Address [address] [place] [address] Care Team Providers Care Director Biology Name Role Phone Unknown, Provider Primary Care Provider Encounter Details Date Type Department Care Team (Late st Contact Info) Description 09/16/2021 Lab Requisition [facility] Pathology & Laboratory Medicine - [facility] [address] [place] [address] Outr Resulting Lab, Provider Social History Tobacco [...] Procedure Name Priority Date/Time Associated Diagnosis Comments RHEUMATOID FACTOR Routine 09/16/2021 10: 15 EST T3 FREE Routine 09/16/2021 10:15 EST THYROID ANTIBODIES Routine 09/16/2021 10 :15 EST documented in this encounter Results * T3 FREE (09/16/2021 10:15 EST) T3, Free 3.5 2.8 - 5.3 pg/mL 09/16/2021 21:39 EST [facility] Blood VENOUS BLOOD / Unknown 09/16/2021 10:15 EST 09/16/2021 21:09 EST Provider Outr Resulting Lab CHEMISTRY & BLOOD GAS ORDERABLES [facility] [address] [place] [address] * THYROID ANTIBODIES (09/16/2021 10:15 EST) Anti-Thyroglobulin 15 <=60 U/mL 2021 23:40 EST [facility] Thyroperoxidase Ab <28 <=60 U/mL 2021 23:40 EST [facility] Blood VENOUS BLOOD / Unknown 09/16/2021 10:15 EST 09/16/2021 21:09 EST Provider Outr Resulting Lab CHEMISTRY & BLOOD GAS ORDERABLES Performing Organization Address City/[facility]/ZIP Co de Phone Number [facility] [address] [place] [address] * RHEUMATOID FACTOR (09/16/2021 10:15 EST) Rheumatoid Factor <8.6 <12.0 IU/mL 09/16/2021 21:22 EST [facility] Blood VENOUS BLOOD / Unknown 09/16/2021 10:15 EST 09/16/2021 21:09 EST Provider Outr Resulting Lab CHEMISTRY & BLOOD GAS ORDERABLES Performing Organization Address City/[facility]/ZIP Co de Phone Number [facility] [address] [place] [address] documented in this encounter Visit Diagnoses Not on filedocumented in this encounter Care Teams Director Biology Relationship Specialty Start Date End Date Unknown, Provider, PCP - General 08/10/21 documented as of this encounter
--- OUTSIDE RECORDS SUMMARY | 2024-02-09 00:41 | XMS_ITS | Encounter Summary ---
Author Organization [facility] Address [address] [place] [address] Care Team Providers Care Cnp Name Role Phone Unknown, Provider Primary Care Provider [phone] Encounter Details Date Type Department Care Team (Late st Contact Info) Description 09/16/2021 Lab Requisition [facility] Pathology & Laboratory Medicine - [facility] [address] [place] [address] Maria Del Rosario Kapadia, CRITICAL CARE CNS 26 [facility] [address] [place] [id number] Encounter for other general examination Social History [...] Procedure Name Priority Date/Time Associated Diagnosis Comments SURGICAL PATHOLOGY Today 09/16/2021 9: 45 EST Encounter for other general examination documented in this encounter Results * SURGICAL PATHOLOGY (09/16/2021 9:45 EST) Note to Patient The following pathology results have been interpreted by your pathologist and may be available to you before your health provider has had the opportunity to review them. Please allow time for your provider to receive these results and explore management options, if applicable. 09/17/2021 15:36 EST [facility] Final Diagnosis A. SKIN OF NECK, LEFT, PUNCH BIOPSY: - Superficial perivascular dermatitis. See microscopic and comment. B. SKIN OF CHEST, PUNCH BIOPSY: - Superficial perivascular dermatitis. See microscopic and comment. 09/17/2021 15:36 [facility] Diagnosis Comment The biopsies from the neck and chest shows similar findings. The features are subtle and nonspecific. There is mild perivascular lymphocytic inflammation. Spongiosis is not seen. An interface process is not identified. Eosinophils are not readily appreciated. Clinical correlation is necessary. 09/17/2021 15:36 [facility] Attestation By the signature below, the attending physician certifies that they have 1) personally conducted a gross and/or microscopic examination of the described specimen(s), and/or personally interpreted the results of laboratory testing of the described specimen(s), and 2) personally rendered or confirmed the above diagnosis. 09/17/2021 15:36 [facility] at 1536 Microscopic Description The punch biopsy from the neck and chest show subtle findings. The epidermis is unremarkable. Within the superficial dermis a mild perivascular lymphocytic infiltrate is seen. Rare dermal melanophages are noted. Multiple levels are reviewed. 09/17/2021 15:36 [facility] Clinical History A. Rash to neck x5 years; B. Rash to chest x20 years 09/17/2021 15:36 [facility] Gross Description A. Received in formalin labelled with proper patient identification (initials M, K) and L neck is a john-white skin punch biopsy measuring 0.2 cm in diameter and excised to a depth of 0.2 cm. Submitted intact in A1. B. Received in formalin labelled with proper patient identification (initials M, K) and chest is a fragment of john-white and john-brown tissue measuring 0.2 x 0.2 x 0.1 cm. Submitted intact in B1. ANSON GUERRERO(ASCP) 09/16/2021 18:35 09/17/2021 15:36 [facility] Performing Lab [facility] 09/17/2021 15:36 [facility] Scanned Images 09/17/2021 15:36 [facility] Tissue TISSUE SPECIMEN FROM SKIN / Unknown 09/16/2021 9:45 EST 09/16/2021 17:44 EST Tissue specimen (specimen) SPECIMEN FROM SKIN / Unknown 09/16/2021 9:45 EST 09/16/2021 17:44 EST Maria Del Rosario Elizabeth Kang CRITICAL CARE CNS PATHOLOGY ORDERAB LES Performing Organization Address City/State/[facility] Co de Phone Number [facility] [address] [place] [address] documented in this encounter Visit Diagnoses Diagnosis Encounter for other general examination documented in this encounter Care Teams Cnp Relationship Specialty Start Date End Date Unknown, Provider, PCP - General 08/10/21 documented as of this encounter
--- OUTSIDE RECORDS SUMMARY | 2024-02-09 00:41 | XMS_ITS | Encounter Summary ---
Author Organization [facility] Address [address] [place] [address] Care Team Providers Care Pyrotechnics Press Tender Name Role Phone Unknown, Provider Primary Care Provider Encounter Details Date Type Department Care Team (Late st Contact Info) Description 07/07/2021 Lab Requisition [facility] Pathology & Laboratory Medicine - [address] [address] Outr Resulting Lab, Provider Social History Tobacco [...] Procedure Name Priority Date/Time Associated Diagnosis Comments ZZCOVID-19 TEST [facility] PCR Today 07/07/2021 11:40 EST COVID-19 TESTING Routine 07/07/2021 11:4 0 EST documented in this encounter Results * COVID-19 TEST [facility] PCR (07/07/2021 11:40 EST) Swab 07/07/2021 11:4 0 EST 07/07/2021 21:36 EST Provider Outr Resulting Lab MICROBIOLOGY - GENERAL ORDERABLES [facility] [address] [place] [address] * (ABNORMAL) COVID-19 TESTING (07/07/2021 11:40 EST) COVID-19 rt-PCR Result Positive(AA ) Negative 07/08/2021 15:53 EST [facility] Comment: This test has not been FDA cleared or approved. This test has been authorized by FDA under an EUA for use by authorized laboratories. This test has been authorized only for detection of nucleic acid from 2019-nCoV, not for any other viruses or pathogens. This test is only authorized for the duration of the declaration that circumstances exist justifying the authorization of emergency use of in vitro diagnostic tests for detection and/or diagnosis of 2019-nCoV under section 564(b)(1) of Act, 21 U.S.C ?? 360bbb-3(b) (1), unless the authorization is terminated or revoked sooner. Performed on the [employer] Ph[employer]her Fusion instrument Performing Lab [place] [facility] 07/08/2021 15:53 EST [facility] Swab 07/07/2021 11:4 0 EST 07/07/2021 21:36 EST Provider Outr Resulting Lab MICROBIOLOGY - GENERAL ORDERABLES [facility] [address] [place] [address] documented in this encounter Visit Diagnoses Not on filedocumented in this encounter Additional Health Concerns Infection Onset Date Last Indicated Resolved Time COVID-19 07/07/2021 07/07/2021 07/27/2021 22:1 5 EST documented as of this encounter Care Teams Pyrotechnics Press Tender Relationship Specialty Start Date End Date Unknown, Provider, PCP - General 08/10/21 documented as of this encounter
--- NOTE | 2024-02-09 06:45 | DI.MAMMO_ITS ---
Exam(s) MAMMO SCREENING EXAM: MAMMO SCREENING CLINICAL HISTORY: screening, Z12.39 TECHNIQUE: Mammograms were interpreted according to the usual protocol including computer analysis w JasonDB CAD system, tomosynthesis and C-view imaging. COMPARISON: 2021 and 2022 FINDINGS: The breasts are composed of scattered fibroglandular densities, Breast Density category B. No suspicious masses or suspicious microcalcifications are seen. No skin thickening or abnormal axillary lymph nodes are seen. There has been no significant change from prior exams. IMPRESSION: BI-RADS Category 1, Negative mammogram Yearly screening mammography is recommended. Breast Density - Category B, scattered fibroglandular densities. A negative radiographic report should not delay biopsy if a dominant or clinically suspicious mass is present. Up to ten percent of cancers are not identified on mammography. A negative report may reinforce clinical impression. Adenosis and dense breasts may obscure an underlying neoplasm. False positive reports average 6 to 10%. Patient will receive a letter notifying them of these results.
== END ==
PROVIDERS: PCP Nurse Practitioner Family; Visit Provider Obstetrics & Gynecology Gynecology
DX: Z12.39 Encounter for other screening for malignant neoplasm of breast (principal); Z12.31 Encounter for screening mammogram for malignant neoplasm of breast
CPT/HCPCS: 77063; 77067

== ENCOUNTER 2024-03-07 20:20 | Outpatient (REF) | payer BC, SELFPAY ==
--- NOTE | 2024-03-07 16:00 | PAPFT_PTH ---
PATIENT: Virginia Marie LOC: [facility]#:[id number] AGE/SX: 58/F ROOM: RE03/07/[address]: Maria Del Rosario Kapadia : 1965 BED: DIS: 03/07/2024 SPEC #: [id number] RECD: 03/08/24 13:26 STATUS: CHAR REAllison #: [id number] [place]: 03/07/24 16:[address]: Maria Del Rosario Kapadia DEPT: [facility] Cytology RECD BY: Rose Presley Tissues: 1 - CX/ENDOCX FOR PAP SMEARS Procedures: PAP THIN PREP/[facility] Screening HPV DNA PROBE Comments: [id number] (HPV 16 & 18/45)
--- OUTSIDE RECORDS SUMMARY | 2024-03-07 20:22 | XMS_ITS | Encounter Summary ---
Author Organization [facility] Address [address] [place] [address] Care Team Providers Care Patent Legal Assistant Name Role Phone Unknown, Provider Primary Care Provider Encounter Details Date Type Department Care Team (Late st Contact Info) Description 07/25/2022 Lab Requisition [facility] Pathology & Laboratory Medicine - [address] [address] Outr Resulting Lab, Provider Social History Tobacco [...] 2.8 - 5.3 pg/mL 07/26/2022 18:33 EST [facility] Blood VENOUS BLOOD / Unknown 07/25/2022 15:30 EST 07/26/2022 17:11 EST Provider Outr Resulting Lab CHEMISTRY & BLOOD GAS ORDERABLES [facility] [address] [place] [address] * ANTI NUCLEAR AB (MARYCARMEN), IFA (07/25/2022 15:30 EST) MARYCARMEN Interpretation Negative Negative 2022 13:55 EST [facility] Comment:No titer performed, MARYCARMEN Screen is negative. Blood VENOUS BLOOD / Unknown 07/25/2022 15:30 EST 07/26/2022 17:11 EST Narrative [facility] - 07/27/2022 13:55 EST Results were obtained with the INOVA NOVA Lite HEp-2 MARYCARMEN Kit by indirect immunofluorescence. Provider Outr Resulting Lab IMMUNOLOGY A ND SEROLOGY ORDERABLES [facility] [address] [place] [address] documented in this encounter Visit Diagnoses Not on filedocumented in this encounter Care Teams Patent Legal Assistant Relationship Specialty Start Date End Date Unknown, Provider, PCP - General 08/10/21 documented as of this encounter
--- OUTSIDE RECORDS SUMMARY | 2024-03-07 20:22 | XMS_ITS | Encounter Summary ---
Author Organization [facility] Address [address] [place] [address] Care Team Providers Care Collection Team Lead Name Role Phone Unknown, Provider Primary Care Provider [phone] Encounter Details Date Type Department Care Team (Late st Contact Info) Description 07/29/2021 Lab Requisition [facility] Pathology & Laboratory Medicine - [facility] [address] [place] [address] Outr Resulting Lab, Provider Social History Tobacco [...] Stranded) <12.3 <30.0 IU/mL 08/05/2021 14:00 EST [facility] Comment: ? Negative: ??<30.0 IU/mL ? Borderline Positive: ??30.0 - 75.0 IU/mL ? Positive: ??>75.0 IU/mL Results were obtained with the INOVA QUANTA Lite dsDNA SC HILDA assay on the RENTISH DSX. Blood VENOUS BLOOD / Unknown 07/28/2021 14:05 EST 07/29/2021 16:46 EST Provider Outr Resulting Lab IMMUNOLOGY A ND SEROLOGY ORDERABLES Performing Organization Address [facility] Co de Phone Number [facility] [address] [place] [address] * (ABNORMAL) ANTI NUCLEAR AB (MARYCARMEN), IFA (07/28/2021 14:05 EST) MARYCARMEN Interpretation Positive(A) Negative 07/30/2021 14:24 EST [facility] Comment: For titers greater than [...] Pattern 1 1:160 Homogeneous 07/30/2021 14:24 EST [facility] Blood VENOUS BLOOD / Unknown 07/28/2021 14:05 EST 07/29/2021 16:46 EST Narrative [facility] - 07/30/2021 14:24 EST Results were obtained with the INOVA NOVA Lite HEp-2 MARYCARMEN Kit by indirect immunofluorescence. Provider Outr Resulting Lab IMMUNOLOGY A ND SEROLOGY ORDERABLES Performing Organization Address City/[facility]/ZIP Co de Phone Number [facility] [address] [place] [address] documented in this encounter Visit Diagnoses Not on filedocumented in this encounter Care Teams Collection Team Lead Relationship Specialty Start Date End Date Unknown, Provider, PCP - General 08/10/21 documented as of this encounter
--- OUTSIDE RECORDS SUMMARY | 2024-03-07 20:22 | XMS_ITS | Encounter Summary ---
Author Organization [facility] Address [address] [place] [address] Care Team Providers Care Document Clerk Name Role Phone Unknown, Provider Primary Care Provider Encounter Details Date Type Department Care Team (Late st Contact Info) Description 07/07/2021 Lab Requisition [facility] Pathology & Laboratory Medicine - [address] [address] Outr Resulting Lab, Provider Social History Tobacco [...] Outr Resulting Lab MICROBIOLOGY - GENERAL ORDERABLES [facility] [address] [place] [address] * (ABNORMAL) COVID-19 TESTING (07/07/2021 11:40 EST) COVID-19 rt-PCR Result Positive(AA ) Negative 07/08/2021 15:53 EST [facility] Comment: This test has [...] terminated or revoked sooner. Performed on the KarmaKeyher Fusion instrument Performing Lab [place] [facility] Lab 07/08/2021 15:53 EST [facility] Swab 07/07/2021 11:4 0 EST 07/07/2021 21:36 EST Provider Outr Resulting Lab MICROBIOLOGY - GENERAL ORDERABLES [facility] [address] [place] [address] documented in this encounter Visit Diagnoses Not on filedocumented in this encounter Additional Health Concerns Infection Onset Date Last Indicated Resolved Time COVID-19 07/07/2021 07/07/2021 07/27/2021 22:1 5 EST documented as of this encounter Care Teams Document Clerk Relationship Specialty Start Date End Date Unknown, Provider, PCP - General 08/10/21 documented as of this encounter
--- OUTSIDE RECORDS SUMMARY | 2024-03-07 20:22 | XMS_ITS | Encounter Summary ---
Author Organization [facility] Address [address] [place] [address] Care Team Providers Care Ancillary Services Manager Therapy Name Role Phone Unknown, Provider Primary Care Provider Encounter Details Date Type Department Care Team (Late st Contact Info) Description 01/17/2024 Lab Requisition [facility] Pathology & Laboratory Medicine - [facility] [address] [place] [address] Outr Resulting Lab, Provider Social History Tobacco [...] 10:40 EDT) Hold Hold 01/17/2024 23:01 EDT [facility] Blood VENOUS BLOOD / Unknown 01/17/2024 10:40 EDT 01/17/2024 21:59 EDT Provider Outr Resulting Lab LAB INFO SER VICE AND SUPPORT & PHONE RESULT Performing Organization Address [facility]/ZIP Co de Phone Number [facility] [address] [place] [address] * T3 FREE (01/17/2024 10:40 EDT) T3, Free 4.3 2.8 - 5.3 pg/mL 01/17/2024 22:47 EDT [facility] Blood VENOUS BLOOD / Unknown 01/17/2024 10:40 EDT 01/17/2024 21:58 EDT Provider Outr Resulting Lab CHEMISTRY & BLOOD GAS ORDERABLES Performing Organization Address [facility] Co de Phone Number [facility] [address] [place] [phone] * THYROPEROXIDASE ANTIBODY (01/17/2024 10:40 EDT) Thyroperoxidase Ab <28 <=60 U/mL 2023 8:34 EDT [facility] Blood VENOUS BLOOD / Unknown 01/17/2024 10:40 EDT 01/17/2024 21:58 EDT Provider Outr Resulting Lab CHEMISTRY & BLOOD GAS ORDERABLES Performing Organization Address [facility] Co de Phone Number [facility] [address] [place] [phone] * CELIAC DISEASE PANEL (01/17/2024 10:40 EDT) Tissue Transglutaminase Antibody, IgA <4.0 <20.0 CU 01/23/2024 12:24 EDT [facility] Comment: A negative result may be due to IgA deficiency and does not rule out celiac disease. Negative: <20.0 CU Weak Positive: 20.0-30.0 CU Positive: >30.0 CU Results were obtained with the [employer] Flash h-tTG IgA chemiluminescent immunoassay. Values obtained with different manufacturers' assay methods may not be used interchangeably. IgA 95 85 - 499 mg/dL 01/23/2024 12:24 EDT [facility] Celiac Disease Interpretation Negative Serology. Celiac disease unlikely. Approximately 10% of patients with celiac disease are seronegative. Patients who are already adhering to a gluten-free diet may also be seronegative. If celiac disease is highly clinically suspected, referral to gastroenterology for additional evaluation is recommended. 01/23/2024 12:24 EDT [facility] Blood VENOUS BLOOD / Unknown 01/17/2024 10:40 EDT 01/17/2024 21:58 EDT Provider Outr Resulting Lab IMMUNOLOGY A ND SEROLOGY ORDERABLES [facility] [address] [place] [address] documented in this encounter Visit Diagnoses Not on filedocumented in this encounter Care Teams Ancillary Services Manager Therapy Relationship Specialty Start Date End Date Unknown, Provider, PCP - General 08/10/21 documented as of this encounter
--- OUTSIDE RECORDS SUMMARY | 2024-03-07 20:22 | XMS_ITS | Encounter Summary ---
Author Organization [facility] Address [address] [place] [address] Care Team Providers Care Screen Vent Binder Name Role Phone Unknown, Provider Primary Care Provider Encounter Details Date Type Department Care Team (Latest Contact Info) Description 06/22/2020 Lab Requisition [facility] Pathology & Laboratory Medicine - [facility] [address] [place] [address] Heather Mcduffie FNP [address] [facility] [address] [place] [phone] Encounter for general adult medical examination [...] Risk types, PCR Negative Negative 06/29/2020 12:33 [facility] Comment:No E6 or E7 mRNA is detected from HPV types 16,18,31,33,35,39,45,51,52,56,58,59,66, and 68 by fbi investigator mediated amplification. Papanicolaou smear specimen (specimen) CERVIX UTERI STRUCTURE / Unknown 06/18/2020 16:30 EST 06/26/2020 8:44 EST Heather Mcduffie ELECTRIC METER REPAIRER APPRENTICE MICROBIOLOGY - GENER AL ORDERABLES [facility] [address] [place] [address] * PAP TEST (06/18/2020 16:30 EST) Specimens A. Cervix and/or Endocervix , ThinPrep Imaging System with Manual Evaluation 06/29/2020 12:33 [facility] Specimen Adequacy Satisfactory for Evaluation - transformation zone component present 06/29/2020 12:33 [facility] General Categorization Negative for intraepithelial lesion or malignancy 06/29/2020 12:33 [facility] Attestation . 06/29/2020 12:33 [facility] at 1233 Clinical History See below 06/29/20 20 12:33 [facility] HPV The result for the Human Papillomavirus (HPV) Detection-High Risk Types is Negative. No E6 or E7 mRNA is detected from HPV types 16,18,31,33,35,39 ,45,51,52,56,58,5 9,66, and 68 by fbi investigator mediated amplification.Ana ting was performed on specimen [id number] and was resulted on 06/29/2020 1232 EST by MERT, LAB INSTRUMENT RESULTS IN 06/29/2020 12:33 [facility] Performing Lab [facility] 06/29/2020 12:33 [facility] Scanned Images 06/29/2020 12:33 [facility] Papanicolaou smear specimen (specimen) CERVIX UTERI STRUCTURE / Unknown 06/18/2020 16:30 EST 06/22/2020 13:06 EST Heather HARVEY PATHOLOGY ORDERABLES [facility] [address] [place] [address] documented in this encounter Visit Diagnoses Diagnosis [...] documented as of this encounter Care Teams Screen Vent Binder Relationship Specialty Start Date End Date Unknown, Provider, PCP - General 08/10/21 documented as of this encounter
--- OUTSIDE RECORDS SUMMARY | 2024-03-07 20:22 | XMS_ITS | Encounter Summary ---
Author Organization [facility] Address [address] [place] [address] Care Team Providers Care Instrumental Teacher Name Role Phone Unknown, Provider Primary Care Provider Encounter Details Date Type Department Care Team (Late st Contact Info) Description 01/21/2022 Lab Requisition [facility] Pathology & Laboratory Medicine - [facility] [address] [place] [address] Outr Resulting Lab, Provider Social History Tobacco [...] 2.8 - 5.3 pg/mL 01/21/2022 17:08 EDT [facility] Blood VENOUS BLOOD / Unknown 01/20/2022 15:00 EDT 01/21/2022 16:35 EDT Provider Outr Resulting Lab CHEMISTRY & BLOOD GAS ORDERABLES [facility] [address] [place] [address] * ANTI NUCLEAR AB (MARYCARMEN), IFA (01/20/2022 15:00 EDT) MARYCARMEN Interpretation Negative Negative 2021 15:24 EDT [facility] Comment:No titer performed, MARYCARMEN Screen is negative. Blood VENOUS BLOOD / Unknown 01/20/2022 15:00 EDT 01/21/2022 16:35 EDT Narrative [facility] - 01/24/2022 15:24 EDT Results were obtained with the [employer] NOVA Lite HEp-2 MARYCARMEN Kit by indirect immunofluorescence. Provider Outr Resulting Lab IMMUNOLOGY A ND SEROLOGY ORDERABLES Performing Organization Address City/State/[facility] Co de Phone Number [facility] [address] [place] [address] documented in this encounter Visit Diagnoses Not on filedocumented in this encounter Care Teams Instrumental Teacher Relationship Specialty Start Date End Date Unknown, Provider, PCP - General 08/10/21 documented as of this encounter
--- OUTSIDE RECORDS SUMMARY | 2024-03-07 20:22 | XMS_ITS | Encounter Summary ---
Author Organization [facility] Address [address] [place] [address] Care Team Providers Care Home Health Care Social Worker Name Role Phone Unknown, Provider Primary Care Provider Encounter Details Date Type Department Care Team (Late st Contact Info) Description 11/09/2022 Lab Requisition [facility] Pathology & Laboratory Medicine - [facility] [address] [place] [address] Caryl [place] MD [address] [place] [address],[address] [place], [place] [id number] Encounter for other general examination Social History [...] types, PCR Negative Negative 11/18/2022 15:15 EDT [facility] Comment:No E6 or E7 mRNA is detected from HPV types 16,18,31,33,35,39,45,51,52,56,58,59,66, and 68 by sap abap developer mediated amplification. Papanicolaou smear specimen (specimen) CERVIX UTERI STRUCTURE / Unknown 11/08/2022 11:40 EDT 11/16/2022 12:37 EDT Caryl [place] MD MICROBIOLOGY - GENER AL ORDERABLES [facility] [address] [place] [address] * PAP TEST (11/08/2022 11:40 EDT) Specimens A. Cervix and/or Endocervix , ThinPrep Imaging System with Manual Evaluation 11/18/2022 15:15 [facility] Specimen Adequacy Satisfactory for Evaluation - transformation zone component present 11/18/2022 15:15 [facility] General Categorization Epithelial Cell Abnormality 11/18/2022 15:15 [facility] Descriptive Diagnosis Squamous Cell Abnormality - Atypical squamous cells, undetermined significance (ASC-US). 11/18/2022 15:15 [facility] Educational Comments [facility] recommends following the ASCCP's management guidelines which may be found at www.asccp.org 11/18/2022 15:15 [facility] Attestation By the signature below, the attending physician certifies that they have personally conducted a gross and/or microscopic examination of the described specimens and rendered or confirmed the above diagnosis. 11/18/2022 15:15 [facility] at 1515 Clinical History SEE BELOW 11/19/19 23 15:15 [facility] HPV The result for the Human Papillomavirus (HPV) Detection-High Risk Types is Negative. No E6 or E7 mRNA is detected from HPV types 16,18,31,33,35,3 9,45,51,52,56,58 ,59,66, and 68 by sap abap developer mediated amplification.Te sting was performed on specimen [id number] and was resulted on 11/18/2022 1515 EDT by MERT, LAB INSTRUMENT RESULTS IN 11/18/2022 15:15 EDT [facility] Performing Lab [facility] 11/18/2022 15:15 EDT [facility] Scanned Images 11/18/2022 15:15 EDT [facility] Papanicolaou smear specimen (specimen) CERVIX UTERI STRUCTURE / Unknown 11/08/2022 11:40 EDT 11/09/2022 13:07 EDT Caryl [place] MD PATHOLOGY ORDERABLES [facility] [address] [place] [address] documented in this encounter Visit Diagnoses Diagnosis Encounter for other general examination documented in this encounter Care Teams Home Health Care Social Worker Relationship Specialty Start Date End Date Unknown, Provider, PCP - General 08/10/21 documented as of this encounter
--- OUTSIDE RECORDS SUMMARY | 2024-03-07 20:22 | XMS_ITS | Encounter Summary ---
Author Organization [facility] Address [address] [place] [address] Care Team Providers Care Pipe And Tank Fabricator Name Role Phone Unknown, Provider Primary Care Provider Encounter Details Date Type Department Care Team (Late st Contact Info) Description 09/16/[address] [facility] Pathology & Laboratory Medicine - [facility] [address] [place] [address] Maria Del Rosario Kapadia, SOLAR MANUFACTURER'S REPRESENTATIVE 26 [facility] [address] [place] [phone] Encounter for other general examination Social History [...] management options, if applicable. 09/17/2021 15:36 EST [facility] Final Diagnosis A. SKIN OF NECK, LEFT, PUNCH BIOPSY: - Superficial perivascular dermatitis. See microscopic and comment. B. SKIN OF CHEST, PUNCH BIOPSY: - Superficial perivascular dermatitis. See microscopic and comment. 09/17/2021 15:36 [facility] Diagnosis Comment The biopsies from the neck and chest shows similar findings. The features are subtle and nonspecific. There is mild perivascular lymphocytic inflammation. Spongiosis is not seen. An interface process is not identified. Eosinophils are not readily appreciated. Clinical correlation is necessary. 09/17/2021 15:36 [facility] Attestation By the signature below, the attending physician certifies that they have 1) personally conducted a gross and/or microscopic examination of the described specimen(s), and/or personally interpreted the results of laboratory testing of the described specimen(s), and 2) personally rendered or confirmed the above diagnosis. 09/17/2021 15:36 [facility] at 1536 Microscopic Description The punch biopsy from the neck and chest show subtle findings. The epidermis is unremarkable. Within the superficial dermis a mild perivascular lymphocytic infiltrate is seen. Rare dermal melanophages are noted. Multiple levels are reviewed. 09/17/2021 15:36 [facility] Clinical History A. Rash to neck x5 years; B. Rash to chest x20 years 09/17/2021 15:36 [facility] Gross Description A. Received in [...] B1. ANSON GUERRERO(ASCP) 09/16/2021 18:35 09/17/2021 15:36 [facility] Performing Lab [facility] 09/17/2021 15:36 [facility] Scanned Images 09/17/2021 15:36 [facility] Tissue TISSUE SPECIMEN FROM SKIN / Unknown 09/16/2021 9:45 EST 09/16/2021 17:44 EST Tissue specimen (specimen) SPECIMEN FROM SKIN / Unknown 09/16/2021 9:45 EST 09/16/2021 17:44 EST Maria Del Rosario Elizabeth Kang SOLAR MANUFACTURER'S REPRESENTATIVE PATHOLOGY ORDERAB LES Performing Organization Address City/State/[facility] Co de Phone Number [facility] [address] [place] [address] documented in this encounter Visit Diagnoses Diagnosis Encounter for other general examination documented in this encounter Care Teams Pipe And Tank Fabricator Relationship Specialty Start Date End Date Unknown, Provider, PCP - General 08/10/21 documented as of this encounter
--- OUTSIDE RECORDS SUMMARY | 2024-03-07 20:22 | XMS_ITS | Encounter Summary ---
Author Organization [facility] Address [address] [place] [address] Care Team Providers Care Riveter Hand Name Role Phone Unknown, Provider Primary Care Provider [phone] Encounter Details Date Type Department Care Team (Late st Contact Info) Description 09/16/[address] [facility] Pathology & Laboratory Medicine - [facility] [address] [place] [address] Outr Resulting Lab, Provider Social History Tobacco [...] 2.8 - 5.3 pg/mL 09/16/2021 21:39 EST [facility] Blood VENOUS BLOOD / Unknown 09/16/2021 10:15 EST 09/16/2021 21:09 EST Provider Outr Resulting Lab CHEMISTRY & BLOOD GAS ORDERABLES [facility] [address] [place] [address] * THYROID ANTIBODIES (09/16/2021 10:15 EST) Anti-Thyroglobulin 15 <=60 U/mL 2021 23:40 EST [facility] Thyroperoxidase Ab <28 <=60 U/mL 2021 23:40 EST [facility] Blood VENOUS BLOOD / Unknown 09/16/2021 10:15 EST 09/16/2021 21:09 EST Provider Outr Resulting Lab CHEMISTRY & BLOOD GAS ORDERABLES Performing Organization Address City/[facility]/ZIP Co de Phone Number [facility] [address] [place] [address] * RHEUMATOID FACTOR (09/16/2021 10:15 EST) Rheumatoid Factor <8.6 <12.0 IU/mL 09/16/2021 21:22 EST [facility] Blood VENOUS BLOOD / Unknown 09/16/2021 10:15 EST 09/16/2021 21:09 EST Provider Outr Resulting Lab CHEMISTRY & BLOOD GAS ORDERABLES Performing Organization Address City/[facility]/ZIP Co de Phone Number [facility] [address] [place] [address] documented in this encounter Visit Diagnoses Not on filedocumented in this encounter Care Teams Riveter Hand Relationship Specialty Start Date End Date Unknown, Provider, PCP - General 08/10/21 documented as of this encounter
--- OUTSIDE RECORDS SUMMARY | 2024-03-07 20:22 | XMS_ITS | Encounter Summary ---
Author Organization [facility] Address [address] [place] [address] Care Team Providers Care Chief Technician Name Role Phone Unknown, Provider Primary Care Provider Encounter Details Date Type Department Care Team (Late st Contact Info) Description 06/19/2020 Lab Requisition [facility] Pathology & Laboratory Medicine - [facility] [address] [place] [address] Outr Resulting Lab, Provider Social History Tobacco [...] gonorrhoeae Result Negative Negative 06/22/2020 14:09 EST [facility] Chlamydia trachomatis Result Negative Negative 06/22/2020 14:09 EST [facility] Papanicolaou smear specimen (specimen) CERVIX UTERI STRUCTURE / Unknown 06/18/2020 16:30 EST 06/22/2020 8:01 EST Provider Outr Resulting Lab MICROBIOLOGY - GENERAL ORDERABLES [facility] [address] [place] [address] documented in this encounter Visit Diagnoses Not on filedocumented in this encounter Additional Health Concerns Infection Onset Date Last Indicated Resolved Time COVID-19 07/07/2021 07/07/2021 07/27/2021 22:1 5 EST documented as of this encounter Care Teams Chief Technician Relationship Specialty Start Date End Date Unknown, Provider, PCP - General 08/10/21 documented as of this encounter
--- OUTSIDE RECORDS SUMMARY | 2024-03-07 20:22 | XMS_ITS | Referral Summary ---
Author Organization [facility] Address [address] [place] [address] Care Team Providers Care Card Setter Name Role Phone Unknown, Provider Primary Care Provider Encounters Date Type Department Care Team Description 01/17/2024 Lab Requisition [facility] Pathology & Laboratory Medicine - [facility] [address] [place] [address] Outr Resulting Lab, Provider from Last 3 [...] IgA <4.0 <20.0 CU 01/23/2024 12:24 EDT [facility] Comment: A negative result may be due to IgA deficiency and does not rule out celiac disease. Negative: <20.0 CU Weak Positive: 20.0-30.0 CU Positive: >30.0 CU Results were obtained with the [employer] Flash h-tTG IgA chemiluminescent immunoassay. Values obtained with different manufacturers' assay methods may not be used interchangeably. IgA 95 85 - 499 mg/dL 01/23/2024 12:24 EDT [facility] Celiac Disease Interpretation Negative Serology. Celiac disease unlikely. Approximately 10% of patients with celiac disease are seronegative. Patients who are already adhering to a gluten-free diet may also be seronegative. If celiac disease is highly clinically suspected, referral to gastroenterology for additional evaluation is recommended. 01/23/2024 12:24 EDT [facility] Blood VENOUS BLOOD / Unknown 01/17/2024 10:40 EDT 01/17/2024 21:58 EDT Provider Outr Resulting Lab IMMUNOLOGY A ND SEROLOGY ORDERABLES Performing Organization Address [facility]/ZIP Co de Phone Number [facility] [address] [place] [address] * HOLD SST (01/17/2024 10:40 EDT) Hold Hold 01/17/2024 23:01 EDT [facility] Blood VENOUS BLOOD / Unknown 01/17/2024 10:40 EDT 01/17/2024 21:59 EDT Provider Outr Resulting Lab LAB INFO SER VICE AND SUPPORT & PHONE RESULT Performing Organization Address [facility]/ZIP Co de Phone Number [facility] [address] [place] [address] * THYROPEROXIDASE ANTIBODY (01/17/2024 10:40 EDT) Thyroperoxidase Ab <28 <=60 U/mL 2023 8:34 EDT [facility] Blood VENOUS BLOOD / Unknown 01/17/2024 10:40 EDT 01/17/2024 21:58 EDT Provider Outr Resulting Lab CHEMISTRY & BLOOD GAS ORDERABLES Performing Organization Address [facility]/ZIP Co de Phone Number [facility] [address] [place] [address] * T3 FREE (01/17/2024 10:40 EDT) T3, Free 4.3 2.8 - 5.3 pg/mL 01/17/2024 22:47 EDT [facility] Blood VENOUS BLOOD / Unknown 01/17/2024 10:40 EDT 01/17/2024 21:58 EDT Provider Outr Resulting Lab CHEMISTRY & BLOOD GAS ORDERABLES [facility] [address] [place] [address] from Last 3 Months Care Teams Card Setter Relationship Specialty Start Date End Date Unknown, Provider, PCP - General 08/10/21
--- OUTSIDE RECORDS SUMMARY | 2024-03-07 20:22 | XMS_ITS | Encounter Summary ---
Author Organization [facility] [place] [address] Care Team Providers Care Egg Packer Name Role Phone Unavailable Primary Care Provider Unavailabl e Reason for Visit * (Routine) - Closed Specialty Diagnoses / Procedures Referred By Contac t Referred To Contact Radiology Diagnoses Calcification of basal ganglia Procedures Request For 2nd Read CT Head [facility] Spine Maria Del Rosario Kapadia APRN [address] [place] [address] Referral ID Status Reason Start Date Expiration Date Visits Re quested Visits Authorized [id number] Closed 05/31/2022 05/31/2023 1 1 Encounter Details Date Type Department Care Team (Latest Contact Info) Description 05/31/2022 4:35 PM EST Ancillary [place] [address] Maria Del Rosario Kapadia APRN [address] [place] [phone] Calcification of basal ganglia Social History Tobacco [...] who have questions please contact the health resident care director that requested your imaging first. ? Electronically signed by: David Vázquez MD, [facility] ([phone]), at 05/31/2022 5:01 PM Narrative 05/31/2022 5:01 PM EST EXAMINATION: REQUEST FOR 2ND READ CT HEAD AND SPINE CLINICAL HISTORY: BASAL GANGLIA CALCIFICATION, DOES THIS LOOK LIKE FAHR DISEASE? METABOLIC? OR INHERITED?; Sending Institution [facility]; Date of exam [id number]; I believe a reinterpretation of this exam may alter care of Patient. Yes TECHNIQUE: CT of the head and cervical spine performed at [facility] without the use of intravenous contrast. COMPARISON: [...] LIKE FAHRDISEASE? METABOLIC? OR INHERITED?; Sending Institution [facility];Date of exam [id number]; I believe a reinterpretation of this exam may alter careof Patient. Yes TECHNIQUE: CT [facility] the head [facility]. COMPARISON: None [...] patients who have questions please contactthe health resident care director that requested your imaging first. Electronically signed by: David Vázquez MD, [facility]([phone]), at 05/31/2022 5:01 PM Maria Del Rosario Kapadia APRN IMG OUTSIDE INTER PRETATION ORDERABLES documented in this encounter Visit Diagnoses Diagnosis Calcification of basal ganglia documented in this encounter
--- OUTSIDE RECORDS SUMMARY | 2024-03-07 20:22 | XMS_ITS | Clinical Summary ---
Author Organization [facility] Address [address] [place] [address] Care Team Providers Care Applications Development Consultant Name Role Phone Unknown, Provider Primary Care Provider Encounters Date Type Department Care Team Description 01/17/2024 Lab Requisition [facility] Pathology & Laboratory Medicine - [address] [address] Outr Resulting Lab, Provider from Last 3 [...] IgA <4.0 <20.0 CU 01/23/2024 12:24 EDT [facility] Comment: A negative result may be due to IgA deficiency and does not rule out celiac disease. Negative: <20.0 CU Weak Positive: 20.0-30.0 CU Positive: >30.0 CU Results were obtained with the Paperless PostA Flash h-tTG IgA chemiluminescent immunoassay. Values obtained with different manufacturers' assay methods may not be used interchangeably. IgA 95 85 - 499 mg/dL 01/23/2024 12:24 EDT [facility] Celiac Disease Interpretation Negative Serology. Celiac disease unlikely. Approximately 10% of patients with celiac disease are seronegative. Patients who are already adhering to a gluten-free diet may also be seronegative. If celiac disease is highly clinically suspected, referral to gastroenterology for additional evaluation is recommended. 01/23/2024 12:24 EDT [facility] Blood VENOUS BLOOD / Unknown 01/17/2024 10:40 EDT 01/17/2024 21:58 EDT Provider Outr Resulting Lab IMMUNOLOGY A ND SEROLOGY ORDERABLES Performing Organization Address City/[facility]/ZIP Co de Phone Number [facility] [address] [place] [address] * HOLD SST (01/17/2024 10:40 EDT) Hold Hold 01/17/2024 23:01 EDT [facility] Blood VENOUS BLOOD / Unknown 01/17/2024 10:40 EDT 01/17/2024 21:59 EDT Provider Outr Resulting Lab LAB INFO SER VICE AND SUPPORT & PHONE RESULT Performing Organization Address [facility] Co de Phone Number [facility] [address] [place], [place] [phone] * THYROPEROXIDASE ANTIBODY (01/17/2024 10:40 EDT) Thyroperoxidase Ab <28 <=60 U/mL 2023 8:34 EDT [facility] Blood VENOUS BLOOD / Unknown 01/17/2024 10:40 EDT 01/17/2024 21:58 EDT Provider Outr Resulting Lab CHEMISTRY & BLOOD GAS ORDERABLES Performing Organization Address City/[facility]/ZIP Co de Phone Number [facility] [address] [place] [address] * T3 FREE (01/17/2024 10:40 EDT) T3, Free 4.3 2.8 - 5.3 pg/mL 01/17/2024 22:47 EDT [facility] Blood VENOUS BLOOD / Unknown 01/17/2024 10:40 EDT 01/17/2024 21:58 EDT Provider Outr Resulting Lab CHEMISTRY & BLOOD GAS ORDERABLES Performing Organization Address [facility]/ZIP Co de Phone Number [facility] [address] [place], [place] [phone] from Last 3 Months Care Teams Applications Development Consultant Relationship Specialty Start Date End Date Unknown, Provider, PCP - General 08/10/21
--- OUTSIDE RECORDS SUMMARY | 2024-03-07 20:22 | XMS_ITS | Encounter Summary ---
Author Organization [facility] Address [address] [place] [address] Care Team Providers Care Treasury Specialist Name Role Phone Unknown, Provider Primary Care Provider Encounter Details Date Type Department Care Team (Late st Contact Info) Description 02/28/2020 Lab Requisition [facility] Pathology & Laboratory Medicine - [facility] [address] [place] [address] Outr Resulting Lab, Provider Social History Tobacco [...] rt-PCR Result NEGATIVE Negative 02/29/2020 13:09 EDT [facility] Comment: 2019-novel Coronavirus (2019-nCoV) not [...] in accordance with CLIA regulations, College of [place] [employer] (CAP) guidelines (Sep 26, 2019), and FDA guidance (Sep 07, 2019). This test is only for use under the Food and Drug Administration's Emergency Use Authorization. Swab ENTIRE NASOPHARYNX / Unknown 02/28/2020 10:49 EDT 02/28/2020 15:27 EDT Provider Outr Resulting Lab MICROBIOLOGY - GENERAL ORDERABLES [employer] [place], [place] * COVID-19 TESTING (02/28/2020 10:49 EDT) Pathologist [facility] COVID-19 rt-PCR Result NEGATIVE Negative 02/29/2020 14:34 EDT [facility] Comment: 2019-novel Coronavirus (2019-nCoV) not detected [...] in accordance with CLIA regulations, College of [place] [employer] (CAP) guidelines (Sep 26, 2019), and FDA guidance (Sep 07, 2019). This test is only for use under the Food and Drug Administration's Emergency Use Authorization. Performing Lab [facility] 02/29/2020 14:34 EDT [facility] Swab 02/28/2020 10:4 9 EDT 02/28/2020 15:27 EDT Provider Outr Resulting Lab MICROBIOLOGY - GENERAL ORDERABLES [facility] [address] [place], [place] [id number] [place] [address] LABORATORY [place], [place] documented in this encounter Visit Diagnoses Not on filedocumented in this encounter Additional Health Concerns Infection Onset Date Last Indicated Resolved Time COVID-19 07/07/2021 07/07/2021 07/27/2021 22:1 5 EST documented as of this encounter Care Teams Treasury Specialist Relationship Specialty Start Date End Date Unknown, Provider, PCP - General 08/10/21 documented as of this encounter
--- OUTSIDE RECORDS SUMMARY | 2024-03-07 20:22 | XMS_ITS | Encounter Summary ---
Author Organization [facility] Address [address] [place] [id number] Care Team Providers Care Welding Production Supervisor Name Role Phone Unknown, Provider Primary Care Provider Encounter Details Date Type Department Care Team (Late st Contact Info) Description 11/21/2019 Lab Requisition [facility] Pathology & Laboratory Medicine - [facility] [address] [place] [address] Outr Resulting Lab, Provider Social History Tobacco [...] 10:31 EDT) Hold Hold 11/21/2019 17:16 EDT [facility] Blood VENOUS BLOOD / Unknown 11/21/2019 10:31 EDT 11/21/2019 16:08 EDT Provider Outr Resulting Lab LAB INFO SER VICE AND SUPPORT & PHONE RESULT [facility] [address] [place] [address] * HOLD SST (11/21/2019 10:31 EDT) Hold Hold 11/21/2019 17:16 EDT [facility] Blood VENOUS BLOOD / Unknown 11/21/2019 10:31 EDT 11/21/2019 16:08 EDT Provider Outr Resulting Lab LAB INFO SER VICE AND SUPPORT & PHONE RESULT Performing Organization Address City/[facility]/ZIP Co de Phone Number [facility] [address] [place] [phone] * T3 FREE (11/21/2019 10:31 EDT) T3, Free 4.3 2.8 - 5.3 pg/mL 11/21/2019 19:26 EDT [facility] Blood VENOUS BLOOD / Unknown 11/21/2019 10:31 EDT 11/21/2019 16:07 EDT Provider Outr Resulting Lab CHEMISTRY & BLOOD GAS ORDERABLES Performing Organization Address City/[facility]/ZIP Co de Phone Number [facility] [address] [place] [address] * THYROPEROXIDASE ANTIBODY (11/21/2019 10:31 EDT) Thyroperoxidase Ab <28 <=60 U/mL 2019 9:08 EDT [facility] Blood VENOUS BLOOD / Unknown 11/21/2019 10:31 EDT 11/21/2019 16:07 EDT Provider Outr Resulting Lab CHEMISTRY & BLOOD GAS ORDERABLES [facility] [address] [place] [address] * ANTI THYROGLOBULIN (11/21/2019 10:31 EDT) Anti-Thyroglob ulin <15 <=60 U/mL 11/22/2019 9:08 EDT [facility] Blood VENOUS BLOOD / Unknown 11/21/2019 10:31 EDT 11/21/2019 16:07 EDT Provider Outr Resulting Lab CHEMISTRY & BLOOD GAS ORDERABLES Performing Organization Address City/[facility] Co de Phone Number [facility] [address] [place] [address] * HOMOCYSTEINE (11/21/2019 10:31 EDT) Homocysteine 9.3 5.0 - 13.9 umol/L 11/22/2019 13:45 EDT [facility] Blood VENOUS BLOOD / Unknown 11/21/2019 10:31 EDT 11/21/2019 16:08 EDT Narrative [facility] - 11/22/2019 13:45 [...] & BLOOD GAS ORDERABLES Performing Organization Address [facility] Co de Phone Number [facility] [address] [place] [address] documented in this encounter Visit Diagnoses Not on filedocumented in this encounter Additional Health Concerns Infection Onset Date Last Indicated Resolved Time COVID-19 07/07/2021 07/07/2021 07/27/2021 22:1 5 EST documented as of this encounter Care Teams Welding Production Supervisor Relationship Specialty Start Date End Date Unknown, Provider, PCP - General 08/10/21 documented as of this encounter
--- OUTSIDE RECORDS SUMMARY | 2024-03-07 20:22 | XMS_ITS | Encounter Summary ---
Author Organization [facility] Address [facility] [place] [address] Care Team Providers Care Backside Grinder Name Role Phone Unavailable Primary Care Provider Unavailabl e Encounter Details Date Type Department Care Team (Late st Contact Info) Description 04/13/2022 Ancillary Procedure [place] [id number] Maria Del Rosario Kapadia APRN [address] [place] [address] Social History Tobacco Use Types Packs/Day Years [...] Rosario Kapadia APRN IMG FILM LIBRARY ORDERABLES [place], [place] documented in this encounter Visit Diagnoses Not on filedocumented in this encounter
--- OUTSIDE RECORDS SUMMARY | 2024-03-07 20:22 | XMS_ITS | Clinical Summary ---
Author Organization [facility] [place] [address] Care Team Providers Care Government Instructor Name Role Phone Unavailable Primary Care Provider [...]
[2024-03-07 22:21] LABS: ALT 23 U/L (14-59); AST 15 U/L (15-37); Albumin 4.1 g/dL (3.4-5.0); Alkaline Phosphatase 75 U/L (46-116); Anion Gap 9.8 mmol/L (3-11); BUN 12 mg/dL (7-18); CO2 27.2 mmol/L (21.0-32.0); CREATININE 0.9 mg/dL (0.55-1.02); Calcium 9.4 mg/dL (8.5-10.1); Calculated LDL 133 mg/dL (<100); Chloride 104 mmol/L (98-107); Cholesterol 240 mg/dL (<200); Glucose 98 mg/dL (74-106); HDL Cholesterol 52 mg/dL (40-60); Potassium 4.1 mmol/L (3.5-5.1); Sodium 141 mmol/L (136-145); Total Protein 7.1 g/dL (6.4-8.2); Triglyceride 279 mg/dL (<150); Vitamin D 25 Total 69.7 ng/mL (30-100)
== END 2024-03-07 20:21 | disposition home or self-care (01) ==
LOC: NCHCN 20:20
PROVIDERS: PCP Nurse Practitioner Family; Visit Provider Nurse Practitioner Family
DX: E78.5 Hyperlipidemia, unspecified (principal); E55.9 Vitamin D deficiency, unspecified
CPT/HCPCS: 80053; 80061; 82306; 88142; 87624

== ENCOUNTER 2024-10-31 13:30 | Outpatient (CLI) | payer BC, SELFPAY ==
[2024-10-31 14:09] LABS: Abs Immature Grans 0.01 10^3/uL (0.0-0.06); Absolute Basophil Count 0.07 10^3/uL (0.0-0.2); Absolute Eosinophil Count 0.13 10^3/uL (0.0-0.7); Absolute Lymphocyte Count 2.16 10^3/uL (1.2-3.4); Absolute Monocyte Count 0.49 10^3/uL (0.1-0.8); Basophils % 1.2 %; Eosinophils % 2.3 %; HGB 13.2 g/dL (11.2-15.7); Immature Grans % 0.2 %; Lymphocytes % 38.2 %; MCH 28.1 pg (27.0-33.0); MCV 85 fL (80-95); MPV 9.2 fL (8.0-11.0); Monocytes % 8.7 %; Neutrophils % 49.4 %; Platelet Count 331 10^3/uL (130-400); RDW 12.6 % (11.7-14.6); RDW-SD 39.5 fL; WBC 5.66 10^3/uL (4.4-10.8)
[2024-10-31 14:11] LABS: ESR 6 mm/hr (0-30)
[2024-10-31 14:40] LABS: Iron 82 ug/dL (50-170); Total Iron Binding Capacity 343 ug/dL (250-450); Transferrin Sat 24 % (15-50)
[2024-10-31 14:59] LABS: ALT 22 U/L (14-59); AST 17 U/L (15-37); Albumin 3.9 g/dL (3.4-5.0); Alkaline Phosphatase 80 U/L (46-116); Anion Gap 6.7 mmol/L (3-11); BUN 12 mg/dL (7-18); Bilirubin, Total 0.3 mg/dL (0.2-1.0); CO2 27.3 mmol/L (21.0-32.0); CREATININE 0.9 mg/dL (0.55-1.02); Calcium 9.4 mg/dL (8.5-10.1); Chloride 106 mmol/L (98-107); Creatine Kinase 71 U/L (26-192); Estimated GFR 73.64 (mL/min/1.73m2); Ferritin 51 ng/mL (8-252); Folate 5.2 ng/mL (8.6-20.0); Glucose 103 mg/dL (74-106); Magnesium 1.9 mg/dL (1.8-2.4); Potassium 4.2 mmol/L (3.5-5.1); Sodium 140 mmol/L (136-145); Total Protein 7.3 g/dL (6.4-8.2); Vitamin B12 410 pg/mL (193-986); Vitamin D 25 Total 43 ng/mL (30-100)
[2024-10-31 15:57] LABS: C-Reactive Protein < 0.50 mg/dL (<or=0.5)
[2024-11-01 08:17] LABS: Transferrin 276 mg/dL (201-352)
[2024-11-01 13:55] LABS: ANA Interpretation Negative (Negative)
== END 2024-10-31 13:31 | disposition home or self-care (01) ==
LOC: LBO 13:30
PROVIDERS: PCP Nurse Practitioner Family; Visit Provider Nurse Practitioner Family
DX: R25.2 Cramp and spasm (principal); E55.9 Vitamin D deficiency, unspecified; R53.83 Other fatigue
CPT/HCPCS: 36415; 80053; 82306; 82550; 85652; 82607; 82728; 82746; 83540; 83550; 83735; 84466; 85025; 86038; 86140

== ENCOUNTER 2024-12-30 17:37 | Outpatient (REF) | payer BC, SELFPAY | END 2024-12-30 17:38 | disposition home or self-care (01) | LOC: LBN 17:37 | PROVIDERS: PCP Nurse Practitioner Family; Visit Provider Obstetrics & Gynecology | DX: Z12.4 Encounter for screening for malignant neoplasm of cervix (principal) | CPT/HCPCS: 88142; 87624 ==

== ENCOUNTER 2025-01-03 00:28 | Outpatient (CLI) | payer BC, SELFPAY ==
--- NOTE | 2025-01-03 08:15 | DI.MAMMO_ITS ---
Exam(s) US BREAST LT COMPLETE MAMMO DIAGNOSTIC BI EXAM: MAMMO DIAGNOSTIC BI and U/S breast LT complete CLINICAL HISTORY: left breast mass in axillary region, dense breast tissue, breast mass. TECHNIQUE: Craniocaudal and mediolateral oblique Full Field Digital Mammography views with Computer Aided Diagnosis followed by Tomosynthesis and complete left breast ultrasound. All 4 quadrants of the left breast, left axilla and left retroareolar region were evaluated sonographically. COMPARISON: Comparison is made with prior examinations. FINDINGS: Mammography/Tomosynthesis: Masses/Architectural Distortion: No suspicious masses or areas of architectural distortion are present. Microcalcifictions: No suspicious pleomorphic-type are seen. Skin Thickening/Nipple Retraction: None. Complete left breast US: Echotexture: Normal appearance of the glandular tissue. Shadowing: No suspicious foci. Cyst: None. Solid lesions: None seen. Ductal dilation: None. In the left lateral chest wall, there is a 0.5 x 0.3 x 0.7 cm lipoma present. IMPRESSION: 1. No evidence of malignancy is noted. 2. Unless there is more urgent need, follow-up screening mammography is recommended, as per [place] [employer] guidelines. 3. The findings were discussed with the patient on the date of the examination. BI-RADS Category 1 - Negative Breast Density - Category B - There are scattered areas of fibroglandular density. Breast density Category C or D implies that the patient has dense breast tissue. Dense breast tissue can make it harder to find cancer on a mammogram. Dense breast tissue is also associated with an increased risk of breast cancer. This information about the result of the mammogram report was provided to the patient to raise their awareness. Use this report when you speak with the patient about their risks for breast cancer, which includes their family history. At that time, you may recommend additional screening tests (Ultrasound or MRI) as these tests may add significant information. A negative radiographic report should not delay biopsy if a dominant or clinically suspicious mass is present. Up to ten percent of cancers are not identified on mammography. A negative report may reinforce clinical impression. Adenosis and dense breasts may obscure an underlying neoplasm. False positive reports average 6 to 10%. Patient will receive a letter notifying them of these results.
== END 2025-01-03 00:48 ==
PROVIDERS: PCP Nurse Practitioner Family; Visit Provider Obstetrics & Gynecology
DX: R92.323 Mammographic fibroglandular density, bilateral breasts (principal); Z12.31 Encounter for screening mammogram for malignant neoplasm of breast
CPT/HCPCS: 76642; 77062; 77066; G0279

== ENCOUNTER 2025-02-04 21:36 | Emergency (ER) | payer BC, SELFPAY ==
[2025-02-04 21:49] VITALS: BP 122/74; PULSE 77; RESP 16; TEMP 36.7; O2SAT 95
[2025-02-04 21:55] VITALS: BP 122/74; PULSE 77; RESP 16; TEMP 36.7; O2SAT 95
--- NOTE | 2025-02-04 22:50 | ED.GENADUL_ITS ---
Discharge Plan Disposition Patient Disposition: Home Condition: Good Discharge Details Clinical Impression: Abrasion of cornea, right Primary Care Provider: Maria Del Rosario Kapadia ED Provider: Shiva Ortiz Home Meds and New Rx's Prescriptions: No Action sertraline [Zoloft] 100 mg tablet 200 mg PO DAILY estradiol [Estrace] 0.01 % (0.1 mg/gram) cream 1 g vaginal .COMPLEX Qty: 42.5 5RF Rx Instructions: 1 g vaginally twice weekly; loratadine [Claritin] 10 mg Tablet 10 mg PO DAILY cyanocobalamin (vitamin B-12) 1,000 mcg Tablet 1,000 mcg PO DAILY cholecalciferol (vitamin D3) [Vitamin D3] 125 mcg (5,000 unit) Tablet 125 mcg PO DAILY Probiotic 5 billion cell Capsule, Sprinkle 1 cap PO DAILY Discharge Instructions Instructions: Corneal Abrasion ED Additional Instructions: At this time you have an abrasion of your right eye. It is mild, but will take time to heal. Please apply the erythromycin ointment every 6 hours until the bottle is done. After this please apply lubricating eyedrops twice daily, especially right before bed. Please follow-up closely with Dr. Sutton for reassessment and reevaluation. If you notice any worsening of your symptoms, or any new symptoms such as vomiting, diarrhea, fever, chills, shortness of breath, chest pain, numbness, weakness, or fainting , please return immediately to the emergency department for reevaluation. Please follow up with your primary care provider as soon as possible for reassessment and reevaluation. As always, it was a pleasure participating in your medical care today. Referrals: [facility] [Outside] Maria Del Rosario Kapadia [Primary Care Provider, Medicine] Discharge Data Discharge Date/Time-TO BE ENTERED AT DEPARTURE: 02/04/25 23:25 HPI General Date/Time Provider Initiated Documentation: 02/04/25 21:44 . HPI Narrative: 59-year-old female who is not a contact lens wear whose tetanus is not up-to-date presents today for evaluation of trauma to her right eye. 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 She felt notable pain and came to the ER for further assessment. She admits to mild irritation in that eye, and feeling like it has been scratched. She denies any severe vision changes. She denies any significant headache. No other complaints at this time. Related Data Home Medications ?Medication ?Instructions ?Recorded ?Confirmed loratadine 10 mg tablet (Claritin) 10 mg PO DAILY 07/1112/30/24 Lactobacil.acidophilus-Bifido.animalis 1 cap PO DAILY 02/26/20 12/30/24 5 billion cell sprinkle capsule (Probiotic) cholecalciferol (vitamin D3) 125 125 mcg PO DAILY 02/0712/30/24 mcg (5,000 unit) tablet (Vitamin D3) cyanocobalamin (vitamin B-12) 1,000 mcg PO DAILY 02/2512/30/24 1,000 mcg tablet sertraline 100 mg tablet (Zoloft) 200 mg PO DAILY 06/1012/30/24 estradiol 0.01% (0.1 mg/gram) 1 g vaginal .COMPLEX #42 .5 grams 01/29/24 12/30/24 vaginal cream (Estrace) Previous Rx's ?Medication ?Instructions ?Recorded estradiol 0.01% (0.1 mg/gram) 1 g vaginal .COMPLEX #42 .5 grams 01/29/24 vaginal cream (Estrace) Allergies Allergy/AdvReac Type Severity Reaction Status Date / Time gluten Allergy Unknown Diarrhea Verified 12/30/24 14:16 lactose Allergy Unknown no longer Verified 12/30/24 14:16 allergic grapefruit juice Allergy Severe Anaphylaxsi Uncoded 12/30/24 14:16 s seasonal Allergy Other (See Uncoded 12/30/24 14:16 Comment) General Stated Complaint: EyeProblem MICAH: 3 Exam Narrative Exam Narrative: 1.Const: Well-nourished, Well-developed, appearing stated age 2.Eyes: PERRL, and symmetrical lids. Right eye: EOMI, PERRL, Peripheral vision intact. No nystagmus No clinical signs of septal/orbital cellulitis, no redness around the eye, no proptosis. Mild conjunctival injection in the inferior lateral quadrant of the eye. No hyphema, no signs of trauma around the eye, no periorbital emphysema. No sluggishness of the pupil. No ophthalmoplegia. No afferent pupillary defect. Fluorescein exam is positive for corneal abrasion just superior to the pupil, negative Alin sign. Visual acuity as documented in chart., Left eye is 20/40, right eye is 20/70. 3.ENT: Atraumatic external nose and ears. Moist MM. Neck: Symmetric, trachea midline, No thyromegaly. 4.CVS: +S1/S2, Peripheral pulses 2+ and equal in all extremities. Brisk capillary refill in all extremities. 5.RESP: Unlabored respiratory effort. Clear to auscultation bilaterally. No wheezes rales or rhonchi 6.GI: Soft, Nontender/Nondistended, No hepatosplenomegaly. No guarding or rebound. 7.MSK: Normocephalic/Atraumatic, Extremities w/o deformity or ttp No cyanosis or clubbing, Normal movement of all extremities 8.Skin: Warm, Dry. No rashes or lesions. 9.Neuro: cone treater II-XII grossly intact. Sensation grossly intact, no focal neurologic deficits. 10.Psych: (AAO) x3. Appropriate mood and affect Course Vital Signs Vital signs: Vital Signs Temperature 36.7 C 02/04/25 21:49 Pulse 77 02/04/25 21:49 Respiratory Rate 16 02/04/25 21:49 Blood Pressure 122/74 02/04/25 21:49 Pulse Oximetry 95 02/04/25 21:49 Temperature 36.7 C 02/04/25 21:55 Temperature Source Oral 02/04/25 21:55 Pulse 77 02/04/25 21:55 Respiratory Rate 16 02/04/25 21:55 Blood Pressure 122/74 02/04/25 21:55 Blood Pressure Position Sitting 02/04/25 21:55 Pulse Oximetry 95 02/04/25 21:55 Oxygen Delivery Method Room Air 02/04/25 21:55 Oxygen Flow Rate 0 02/04/25 21:49 Medical Decision Making 59-year-old female who is not a contact lens wear whose tetanus is not up -to-date presents today for evaluation of trauma to her right eye. 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 She felt notable pain and came to the ER for further assessment. She admits to mild irritation in that eye, and feeling like it has been scratched. She denies any severe vision changes. She denies any significant headache. No other complaints at this time. Physical exam demonstrates corneal abrasion just above the pupil, eversion of the upper and lower lid show no foreign body. No other corneal abrasion. Notably negative Sydow sign. No signs of globe rupture. Vision and pupil are intact. Symptoms consistent with corneal abrasion. Erythromycin ointment was applied. Patient stable. Patient stable for discharge. Will place referral for Dr. Sutton's office. Discussed red flags for which to return. I have extensively reviewed the treatment plan and discharge instructions with the emiliano ent. I have addressed all patient concerns at this time. The patient was made aware of what symptoms to monitor for that would warrant a return to the emergency department. Discussed the plan with the patient, they demonstrate verbal understanding and agreement with our assessment and plan at this time. The documentation in this chart was dictated using [employer] dictation software. Please excuse any dictation errors. Tetanus was updated today PFSH All Active Problems (Updated 02/04/25 @ 22:52 by Shiva Ortiz DO) Abrasion of cornea, right (Acute) Vaginal dryness, menopausal (Acute) 5/325. Symptoms improved with intravaginal estradiol Left lateral epicondylitis (Acute) Difficult airway for intubation (Acute) Significant masseter spasm following induction of anesthesia, small mouth opening Pelvic pain (Acute) Abdominal bloating (Acute) Rash (Acute) Chronic fatigue (Acute) Screening for colon cancer (Acute) Medical History Sessile colonic polyp (~10/27/16) [facility], [place], [place] Allergic rhinitis Depression with anxiety Iron deficiency Vitamin D deficiency Lactose intolerance Gluten intolerance Hyperlipidemia Surgical History H/O elbow surgery Hx of shoulder surgery 2017 Arthroscopy Hx of cholecystectomy S/P left knee arthroscopy 1996 & 2011 History of tonsillectomy and adenoidectomy Family History Father Hyperlipidemia Hypertension Mother Hypertension Thyroid disorder Lupus Rheumatoid arthritis Scleroderma Pernicious anemia Sjogren's disease Social History Smoking/Tobacco Use Status: Current-Occasional Tobacco Type: cigarettes Quit status: has quit before Smoking risk assessment performed?: Yes Alcohol Intake: current Alcohol Intake frequency: holidays/special occasions only Drug use: Never Substance use type: does not use Number of Children: 1 Education Level: college 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 [place] What is your relationship status?: Panel score (0-1 are the most socially isolated patients): 1 Do you feel safe at home: Yes Do you feel safe in your relationship?: Yes Female Reproductive History Menstrual Menopause type: natural PAWSS Have you Been Recently Intoxicated or Drunk Within the Last 30 days?: No Have you Ever Experienced Previous Episodes of Alcohol Withdrawal?: No Have you ever Experienced Withdrawal Seizures?: No Have you ever Experienced Delirium Tremens(DT)s?: No Have you ever undergone Alcohol Rehabilitation Treatment (i.e, inpt ot outpatient treatment programs)?: No Have you ever Experienced Blackouts?: No Have you ever Combined Alcohol with other Downers within the last 90 days?: No Have you ever Combined Alcohol with any other Substance of Abuse during the last 90 days?: No Positive Blood Alcohol level on Presentation? [PCS.BAL]: No Evidence of Increased Autonomic Activity (i.e. HR>120, tremor, sweating, agitation, nausea)?: No Result: 0
[2025-02-04] MEDS: Fluorescein STRIPS 100/BOX 1 MG (23:09)
[2025-02-04] MEDS: Tetracaine 0.5% 4 ML BTL (23:09)
[2025-02-04] MEDS: Erythromycin Ophth Oint 3.5 GM TUBE (23:09)
[2025-02-04] MEDS: Diph,Pertuss(Acell),Tet Vac/Pf 0.5 ML SYR IM (23:14)
[2025-02-04 23:19] VITALS: BP 137/67; PULSE 67; RESP 16
== END 2025-02-04 23:25 | disposition home or self-care (01) ==
PROVIDERS: Emergency Provider Student in an Organized Health Care Education/Training Program; PCP Nurse Practitioner Family
DX: S05.01XA Injury of conjunctiva and corneal abrasion without foreign body, right eye, initial encounter (principal); F17.210 Nicotine dependence, cigarettes, uncomplicated; W55.22XA Struck by cow, initial encounter; Y93.K9 Activity, other involving animal care; Y92.89 Other specified places as the place of occurrence of the external cause
CPT/HCPCS: 90471; 90715; 99283

== ENCOUNTER 2025-03-13 20:46 | Outpatient (REF) | payer BC, SELFPAY ==
[2025-03-13 22:30] LABS: Hemoglobin A1C 6.1 % (<5.7)
[2025-03-13 22:35] LABS: ALT 18 U/L (14-59); AST 15 U/L (15-37); Albumin 4.1 g/dL (3.4-5.0); Alkaline Phosphatase 83 U/L (46-116); Anion Gap 10.2 mmol/L (3-11); BUN 19 mg/dL (7-18); Bilirubin, Total 0.2 mg/dL (0.2-1.0); CO2 26.8 mmol/L (21.0-32.0); Calcium 9.2 mg/dL (8.5-10.1); Calculated LDL 113 mg/dL (<100); Chloride 104 mmol/L (98-107); Cholesterol 200 mg/dL (<200); Estimated GFR 103.33 (mL/min/1.73m2); Glucose 97 mg/dL (74-106); HDL Cholesterol 50 mg/dL (>or=50); Potassium 4.3 mmol/L (3.5-5.1); Sodium 141 mmol/L (136-145); TSH (W/Ref FT4) 0.87 uIU/mL (0.36-3.74); Total Protein 6.9 g/dL (6.4-8.2); Triglyceride 188 mg/dL (<150)
[2025-03-14 23:07] LABS: T3,Free 4.8 pg/mL (2.8-5.3)
== END 2025-03-13 20:47 | disposition home or self-care (01) ==
LOC: NCHCN 20:46
PROVIDERS: PCP Nurse Practitioner Family; Visit Provider Nurse Practitioner Family
DX: Z13.1 Encounter for screening for diabetes mellitus (principal); E78.5 Hyperlipidemia, unspecified; R94.6 Abnormal results of thyroid function studies
CPT/HCPCS: 80053; 80061; 83036; 84443; 84481

== ENCOUNTER 2025-03-25 03:18 | Outpatient (CLI) | payer BC, SELFPAY ==
--- NOTE | 2025-03-26 10:14 | W.NUTRFU ---
Date of service: 03/25/25 Time of Service: 13:00 Nutrition Note NOTE: [place] referred to nutrition visit for polyphagia and she states she is interested in weight loss/healthier eating. Began the appt by letting me know she grew up with adverse relationship with food. Has some trauma that she realizes and has confidence in managing/addressing. She can become a grazer, just eating little easy things when she has time. Dinner is her most consistent meal but often eaten late and then snacking afterwards. She relates concerns for atuoimmune issues - family with a host of AI disorders. She shows her hand with recent development of vitiligo and and rash around her neck. States tested for celiac and negative but loose gluten free for the the last 5 years. She was lactose sensitive for awhile but now states she manages dairy fine. [place] great on the keto diet in 2017 but was not sustainable. Following a nutrition interview, [place]'s diet is initially assessed low in fiber and lean protein and higher than recommended for added sugars (estimate that can be over 50g per day many days). Suggested [place] allow carbs and focus on feeding her gut and protecting her liver with high fiber food choices from a variety of plant choices, especially plant protein choices as they are high in fiber. Also suggested tracking added sugars and aiming for <30g most days. Encouraged 3 meals and 0-2 planned snacks per day and no more than these 3-5 eating occasions at most but to take advantage of each one to get some protein and fiber to help add to her daily totals. Also encouraged strength training and exercise to help with fat loss and insulin sensitivity as I feel her higher levels of abdominal fat are playing into her discomforts. sent her an email with link and the following parameters for playing around with menu planning resources based on her recommneded targets of: -1600kcals plus additional activity/exercise -about 120g protein daily -about 160 g total carbs -about 52g fat (with no more than 20g SFA) -less than 30g added sugar - at lest 30g fiber -plentiful water and non-caloric bevs. advocated for less grain products and more intact grains, eating more traditional foods that are minimally processed. [place] has my email and phone contacts to reach out with updates, struggles, and any need for further follow ups or resources. Time Spent in Nutritional Counseling and Treatment: 25min
== END 2025-03-25 03:19 | disposition home or self-care (01) ==
LOC: DS 03:18
PROVIDERS: PCP Nurse Practitioner Family; Visit Provider Dietitian, Registered
DX: R63.2 Polyphagia (principal)
CPT/HCPCS: 00123; 97802